=== PATIENT | female | born 1945 | race Caucasian/White ===

== ENCOUNTER 2023-07-10 12:38 | Outpatient (CLI) | payer MEDICARE ==
[2023-07-10] VITALS (21 sets, daily range): BP systolic 134–173; BP diastolic 71–137; PULSE 91–125
== END 2023-07-10 23:59 | disposition home or self-care (01) ==
LOC: CARD DIAG 12:38
PROVIDERS: ATTEND Internal Medicine Interventional Cardiology
DX: R55 Syncope and collapse (principal)
CPT/HCPCS: 93660

== ENCOUNTER 2023-09-11 13:09 | Inpatient (IN) | payer MEDICARE ==
[~2023-09-11] VITALS: Ht 157.5 cm; Wt 46.4 kg
[2023-09-11] MEDS ORDERED: LOSA100T58 PO (13:39)
[2023-09-11 14:19] LABS: BASOPHILS % (AUTO) 0.5 % (0-1); EOSINOPHILS % (AUTO) 0.1 % (0-6); LYMPHOCYTES # (AUTO) 0.4 X10'3 (1.1-4.8); LYMPHOCYTES % (AUTO) 5.1 % (21-51); MEAN CORPUSCULAR HGB CONC 29.6 g/dL (33.0-36.5); MEAN CORPUSCULAR VOLUME 77.8 FL (78-98); MEAN PLATELET VOLUME 6.3 FL (7.4-10.4); MONOCYTES # (AUTO) 0.7 X10'3 (0-0.9); MONOCYTES % (AUTO) 8.4 % (2-12); NEUTROPHILS # (AUTO) 7.5 X10'3 (1.8-7.7); NEUTROPHILS % (AUTO) 85.9 % (42-75); PLATELET COUNT 454 X10'3 (140-440); RED BLOOD COUNT 2.31 X10'6 (4.20-5.60); RED CELL DISTRIBUTION WIDTH 19.8 % (11.5-14.5); WHITE BLOOD COUNT 8.7 X10'3 (4.5-11.0)
[2023-09-11 14:28] LABS: HEMOGLOBIN 5.3 g/dl (12.0-16.0)
[2023-09-11 14:29] LABS: HEMATOCRIT 17.9 % (35.0-45.0)
[2023-09-11 14:39] LABS: ALANINE AMINOTRANSFERASE 51 U/L (12-78); ALBUMIN 3.5 G/DL (3.4-5.0); ALKALINE PHOSPHATASE 89 IU/L (46-116); ANION GAP 11 (8-16); ASPARTATE AMINO TRANSFERASE 38 U/L (10-37); BILIRUBIN,TOTAL 0.8 MG/DL (0.1-1.0); BLOOD UREA NITROGEN 15 MG/DL (7-18); BUN/CREATININE RATIO 13.9 (10.0-20.0); CALCIUM 9.5 MG/DL (8.5-10.1); CHLORIDE 95 MMOL/L (99-107); CREATININE 1.08 MG/DL (0.40-0.90); GLUCOSE 120 MG/DL (70-104); POTASSIUM 3.8 MMOL/L (3.5-5.1); SODIUM 130 MMOL/L (135-145); TOTAL CARBON DIOXIDE 24.5 MMOL/L (24-32); eCRCL 31 ML/MIN; eGFR 49 ML/MIN
[2023-09-11 14:53] LABS: ANISOCYTOSIS 2+; HYPOCHROMASIA 2+; MICROCYTOSIS 1+; PLATELET ESTIMATE INCREASED
[2023-09-11 14:54] LABS: ELLIPTOCYTES FEW
[2023-09-11 14:55] LABS: POLYCHROMASIA FEW
[2023-09-11] MEDS ORDERED: iohexol 300mg/ml 100ml inj. ONE (15:13)
[2023-09-11 15:29] LABS: BILIRUBIN,URINE NEGATIVE (Neg); CLARITY,URINE SLIGHTLY CLOUDY (Clear); COLOR,URINE YELLOW (Yellow); GLUCOSE, URINE NEGATIVE (Neg); KETONES,URINE TRACE mg/dl (Neg); LEUKOCYTE ESTERASE ,URINE TRACE (Neg); NITRITES, URINE NEGATIVE (Neg); OCCULT BLOOD,URINE NEGATIVE (Neg); PH,URINE 7.5 (4.8-8.0); PROTEIN,URINE 30 mg/dl (Neg)
[2023-09-11 15:30] LABS: UA COLLECTION TYPE CLN CATCH MIDSTREAM
[2023-09-11 15:35] LABS: PROTHROMBIN TIME 10.5 SECONDS (9.0-12.0)
[2023-09-11 15:41] LABS: RBC,URINE 0-2 /HPF (0-2)
[2023-09-11 15:42] LABS: BACTERIA,URINE FEW /HPF (Neg); SQUAMOUS EPITHELIAL CELL,UR MANY /LPF (FEW)
[2023-09-11] MEDS ORDERED: magnesium sulf-water 4G/100mL 100 ML IV PRN (15:55)
[2023-09-11] MEDS ORDERED: ondansetron/PF 4mg/2ml inj IV PRN (15:55)
[2023-09-11] MEDS ORDERED: magnesium sulf-water 2g/50mL 50 ML IV PRN (15:55)
[2023-09-11] MEDS ORDERED: magnesium hydroxide 30ml (MOM) UD suspension PO PRN (15:55)
[2023-09-11] MEDS ORDERED: potassium Cl 20 mEq SR tablet PO PRN (15:55)
[2023-09-11] MEDS ORDERED: acetaminophen 325mg tablet PO PRN (15:55)
[2023-09-11 15:57] LABS: TRANSITIONAL EPI CELLS,URINE FEW /HPF
[2023-09-11] MEDS ORDERED: pantoprazole 40mg IV 80 MG in normal saline 100ml IV soln 100 ML IV ONE (16:05)
[2023-09-11 16:37] LABS: ABSOLUTE RETICS # 123000 /CUMM (23000-93000); RETICULOCYTE % (AUTO) 5.3 % (0.5-1.5)
[2023-09-11 16:39] LABS: % IRON SATURATION 2 % (11-46); IRON 8 UG/DL (49-151); TOTAL IRON BINDING CAPACITY 416 UG/DL (259-388)
[2023-09-11 16:40] VITALS: BP 118/45; PULSE 91; RESP 18; TEMP 98.6
[2023-09-11 16:47] LABS: FERRITIN 17 NG/ML (8-252)
[2023-09-11 16:55] VITALS: BP 137/58; PULSE 83; RESP 16; TEMP 98.7
[2023-09-11] MEDS: pantoprazole 40 MG vial IV ONE (16:57)
[2023-09-11 17:28] VITALS: BP 137/58; PULSE 76; RESP 20; TEMP 98.7; O2SAT 100
[2023-09-11 18:00] VITALS: BP 144/67; PULSE 84; RESP 15; TEMP 98; O2SAT 99
[2023-09-11 18:30] VITALS: BP 140/51; PULSE 71; RESP 12; TEMP 97.2
[2023-09-11 20:00] VITALS: RESP 15; O2SAT 99
[2023-09-11] MEDS: K and/or MAG REPLACEMENT MC SCH (20:00)
[2023-09-11] MEDS: docusate sod 100mg capsule PO SCH (20:00)
[2023-09-11] MEDS: iron sucrose complex injection 300 MG in normal saline 250ml IV soln 250 ML IV SCH (21:55)
[2023-09-11] MEDS: pantoprazole 40MG/NS 100ML BAG 100 ML IV SCH (22:16)
[2023-09-12] VITALS (24 sets, daily range): BP systolic 75–164; BP diastolic 45–83; PULSE 68–101; RESP 9–18; TEMP 97.6–98.7; O2SAT 96–100
[2023-09-12] MEDS ORDERED: IBUP-2417 PO (00:56)
[2023-09-12 07:45] LABS: BASOPHILS % (AUTO) 0.4 % (0-1); EOSINOPHILS % (AUTO) 0.2 % (0-6); LYMPHOCYTES # (AUTO) 0.6 X10'3 (1.1-4.8); LYMPHOCYTES % (AUTO) 8.8 % (21-51); MEAN CORPUSCULAR HEMOGLOBIN 24.6 PG (27.0-31.0); MEAN CORPUSCULAR HGB CONC 30.7 g/dL (33.0-36.5); MEAN PLATELET VOLUME 6.5 FL (7.4-10.4); MONOCYTES # (AUTO) 0.6 X10'3 (0-0.9); MONOCYTES % (AUTO) 9.2 % (2-12); NEUTROPHILS # (AUTO) 5.4 X10'3 (1.8-7.7); NEUTROPHILS % (AUTO) 81.4 % (42-75); PLATELET COUNT 377 X10'3 (140-440); RED BLOOD COUNT 2.28 X10'6 (4.20-5.60); RED CELL DISTRIBUTION WIDTH 19.4 % (11.5-14.5); WHITE BLOOD COUNT 6.7 X10'3 (4.5-11.0)
[2023-09-12 08:00] LABS: HEMATOCRIT 18.2 % (35.0-45.0); HEMOGLOBIN 5.6 g/dl (12.0-16.0)
[2023-09-12 08:10] LABS: ALBUMIN 2.6 G/DL (3.4-5.0); ALBUMIN/GLOBULIN RATIO 0.9 (1.1-1.5); ANION GAP 7 (8-16); ASPARTATE AMINO TRANSFERASE 22 U/L (10-37); BILIRUBIN,TOTAL 0.6 MG/DL (0.1-1.0); BLOOD UREA NITROGEN 13 MG/DL (7-18); BUN/CREATININE RATIO 17.6 (10.0-20.0); CALCIUM 8.8 MG/DL (8.5-10.1); CHLORIDE 101 MMOL/L (99-107); CREATININE 0.74 MG/DL (0.40-0.90); GLUCOSE 93 MG/DL (70-104); MAGNESIUM 1.9 MG/DL (1.5-2.4); SODIUM 133 MMOL/L (135-145); TOTAL CARBON DIOXIDE 25.5 MMOL/L (24-32); TOTAL PROTEIN 5.6 G/DL (6.4-8.2); eCRCL 45 ML/MIN; eGFR 76 ML/MIN
[2023-09-12 08:11] LABS: ALANINE AMINOTRANSFERASE 34 U/L (12-78); ALKALINE PHOSPHATASE 68 IU/L (46-116)
[2023-09-12 08:31] LABS: ANISOCYTOSIS 2+; HYPOCHROMASIA 1+; MICROCYTOSIS 1+; PLATELET ESTIMATE NORMAL; POLYCHROMASIA 2+; TARGET CELLS FEW
[2023-09-12] MEDS: potassium Cl 20 mEq SR tablet PO PRN (09:29)
[2023-09-12] MEDS ORDERED: POTASSIUM BICARB 20meq eff tab 20 MEQ TABLET.EFF PO PRN (11:15)
[2023-09-12] MEDS ORDERED: fentaNYL/PF 50MCG/1 ML 2ML syringe ONE (12:58)
[2023-09-12] MEDS ORDERED: LIDOcaine 2% Viscous 15ml cup ONE (12:58)
[2023-09-12] MEDS ORDERED: MIDAZolam 1 MG/ML 5ML VIAL ONE (12:58)
[2023-09-12 17:16] LABS: HEMATOCRIT 25.4 % (35.0-45.0); HEMOGLOBIN 8.2 g/dl (12.0-16.0); MEAN CORPUSCULAR HEMOGLOBIN 25.7 PG (27.0-31.0); MEAN CORPUSCULAR HGB CONC 32.1 g/dL (33.0-36.5); MEAN CORPUSCULAR VOLUME 80.1 FL (78-98); MEAN PLATELET VOLUME 6.3 FL (7.4-10.4); PLATELET COUNT 395 X10'3 (140-440); RED BLOOD COUNT 3.18 X10'6 (4.20-5.60); RED CELL DISTRIBUTION WIDTH 18.5 % (11.5-14.5); WHITE BLOOD COUNT 7.2 X10'3 (4.5-11.0)
[2023-09-12] MEDS: normal saline 1000ml 1,000 ML IV SCH (18:03)
[2023-09-12] MEDS ORDERED: METO-395 PO (18:10)
[2023-09-12 23:07] LABS: HEMATOCRIT 23.3 % (35.0-45.0); HEMOGLOBIN 7.4 g/dl (12.0-16.0); MEAN CORPUSCULAR HEMOGLOBIN 25.8 PG (27.0-31.0); MEAN CORPUSCULAR HGB CONC 31.9 g/dL (33.0-36.5); MEAN CORPUSCULAR VOLUME 80.9 FL (78-98); MEAN PLATELET VOLUME 6.5 FL (7.4-10.4); PLATELET COUNT 358 X10'3 (140-440); RED BLOOD COUNT 2.88 X10'6 (4.20-5.60); RED CELL DISTRIBUTION WIDTH 17.8 % (11.5-14.5); WHITE BLOOD COUNT 7.1 X10'3 (4.5-11.0)
[2023-09-13] VITALS (22 sets, daily range): BP systolic 119–158; BP diastolic 50–70; PULSE 60–85; RESP 9–20; TEMP 98.2; O2SAT 94–100
[2023-09-13] MEDS: potassium Cl 40MEQ/1/2NS 520ml 520 ML IV PRN (00:04)
[2023-09-13 05:39] LABS: HEMATOCRIT 22.9 % (35.0-45.0); HEMOGLOBIN 7.1 g/dl (12.0-16.0); MEAN CORPUSCULAR HEMOGLOBIN 25.1 PG (27.0-31.0); MEAN CORPUSCULAR HGB CONC 31.1 g/dL (33.0-36.5); MEAN CORPUSCULAR VOLUME 80.6 FL (78-98); MEAN PLATELET VOLUME 6.4 FL (7.4-10.4); PLATELET COUNT 375 X10'3 (140-440); RED BLOOD COUNT 2.84 X10'6 (4.20-5.60); RED CELL DISTRIBUTION WIDTH 18.2 % (11.5-14.5); WHITE BLOOD COUNT 6.1 X10'3 (4.5-11.0)
[2023-09-13 05:55] LABS: ALANINE AMINOTRANSFERASE 33 U/L (12-78); ALBUMIN 2.4 G/DL (3.4-5.0); ALBUMIN/GLOBULIN RATIO 0.8 (1.1-1.5); ALKALINE PHOSPHATASE 60 IU/L (46-116); ANION GAP 7 (8-16); ASPARTATE AMINO TRANSFERASE 24 U/L (10-37); BILIRUBIN,TOTAL 0.5 MG/DL (0.1-1.0); BLOOD UREA NITROGEN 10 MG/DL (7-18); CALCIUM 8.5 MG/DL (8.5-10.1); CHLORIDE 106 MMOL/L (99-107); GLUCOSE 87 MG/DL (70-104); MAGNESIUM 1.8 MG/DL (1.5-2.4); POTASSIUM 4.3 MMOL/L (3.5-5.1); SODIUM 136 MMOL/L (135-145); TOTAL CARBON DIOXIDE 23.1 MMOL/L (24-32); TOTAL PROTEIN 5.3 G/DL (6.4-8.2); eCRCL 67 ML/MIN; eGFR > 90 ML/MIN
[2023-09-13 08:29] LABS: HEMATOCRIT 24.7 % (35.0-45.0); HEMOGLOBIN 7.7 g/dl (12.0-16.0); MEAN CORPUSCULAR HEMOGLOBIN 25.4 PG (27.0-31.0); MEAN CORPUSCULAR HGB CONC 31.2 g/dL (33.0-36.5); MEAN CORPUSCULAR VOLUME 81.7 FL (78-98); MEAN PLATELET VOLUME 6.3 FL (7.4-10.4); PLATELET COUNT 414 X10'3 (140-440); RED BLOOD COUNT 3.03 X10'6 (4.20-5.60); RED CELL DISTRIBUTION WIDTH 18.2 % (11.5-14.5); WHITE BLOOD COUNT 6.9 X10'3 (4.5-11.0)
[2023-09-13] MEDS: pantoprazole 40MG/NS 100ML BAG 100 ML IV SCH (12:24)
[2023-09-13 15:12] LABS: HEMOGLOBIN 7.2 g/dl (12.0-16.0); MEAN CORPUSCULAR HEMOGLOBIN 25.7 PG (27.0-31.0); MEAN CORPUSCULAR HGB CONC 31.5 g/dL (33.0-36.5); MEAN CORPUSCULAR VOLUME 81.5 FL (78-98); MEAN PLATELET VOLUME 6.4 FL (7.4-10.4); PLATELET COUNT 374 X10'3 (140-440); RED BLOOD COUNT 2.82 X10'6 (4.20-5.60); RED CELL DISTRIBUTION WIDTH 18.3 % (11.5-14.5); WHITE BLOOD COUNT 6.6 X10'3 (4.5-11.0)
[2023-09-13] MEDS: pneumococcal 23-VAL P-sac vacc 25 mcg/0.5ml vial IMVAC ONE (18:56)
[2023-09-13 19:47] LABS: HEMATOCRIT 24.1 % (35.0-45.0); HEMOGLOBIN 7.6 g/dl (12.0-16.0); MEAN CORPUSCULAR HEMOGLOBIN 25.8 PG (27.0-31.0); MEAN CORPUSCULAR HGB CONC 31.6 g/dL (33.0-36.5); MEAN CORPUSCULAR VOLUME 81.6 FL (78-98); PLATELET COUNT 393 X10'3 (140-440); RED BLOOD COUNT 2.96 X10'6 (4.20-5.60); RED CELL DISTRIBUTION WIDTH 18.5 % (11.5-14.5); WHITE BLOOD COUNT 7.4 X10'3 (4.5-11.0)
[2023-09-14] VITALS (19 sets, daily range): BP systolic 103–180; BP diastolic 47–89; PULSE 63–99; RESP 12–16; TEMP 97.4–98.4; O2SAT 98–100
[2023-09-14 05:56] LABS: BASOPHILS % (AUTO) 0.7 % (0-1); EOSINOPHILS # (AUTO) 0.1 X10'3 (0-0.9); EOSINOPHILS % (AUTO) 1.2 % (0-6); LYMPHOCYTES # (AUTO) 0.8 X10'3 (1.1-4.8); LYMPHOCYTES % (AUTO) 13.5 % (21-51); MEAN CORPUSCULAR HEMOGLOBIN 25.5 PG (27.0-31.0); MEAN CORPUSCULAR HGB CONC 31.6 g/dL (33.0-36.5); MEAN CORPUSCULAR VOLUME 80.7 FL (78-98); MEAN PLATELET VOLUME 6.2 FL (7.4-10.4); MONOCYTES # (AUTO) 0.7 X10'3 (0-0.9); MONOCYTES % (AUTO) 11.2 % (2-12); NEUTROPHILS # (AUTO) 4.3 X10'3 (1.8-7.7); NEUTROPHILS % (AUTO) 73.4 % (42-75); PLATELET COUNT 381 X10'3 (140-440); RED BLOOD COUNT 2.65 X10'6 (4.20-5.60); RED CELL DISTRIBUTION WIDTH 18.5 % (11.5-14.5); WHITE BLOOD COUNT 5.8 X10'3 (4.5-11.0)
[2023-09-14 06:04] LABS: HEMATOCRIT 21.4 % (35.0-45.0); HEMOGLOBIN 6.8 g/dl (12.0-16.0)
[2023-09-14] MEDS ORDERED: dexamethasone inj 10 MG in normal saline 100ml IV soln 100 ML IV ONE (06:15)
[2023-09-14 06:18] LABS: ALANINE AMINOTRANSFERASE 31 U/L (12-78); ALBUMIN 2.4 G/DL (3.4-5.0); ALBUMIN/GLOBULIN RATIO 0.9 (1.1-1.5); ALKALINE PHOSPHATASE 59 IU/L (46-116); ANION GAP 5 (8-16); ASPARTATE AMINO TRANSFERASE 26 U/L (10-37); BILIRUBIN,TOTAL 0.4 MG/DL (0.1-1.0); BLOOD UREA NITROGEN 5 MG/DL (7-18); BUN/CREATININE RATIO 9.1 (10.0-20.0); CALCIUM 8.7 MG/DL (8.5-10.1); CHLORIDE 107 MMOL/L (99-107); CREATININE 0.55 MG/DL (0.40-0.90); GLUCOSE 92 MG/DL (70-104); MAGNESIUM 1.6 MG/DL (1.5-2.4); POTASSIUM 3.2 MMOL/L (3.5-5.1); SODIUM 136 MMOL/L (135-145); TOTAL CARBON DIOXIDE 23.9 MMOL/L (24-32); TOTAL PROTEIN 5.2 G/DL (6.4-8.2); eCRCL 61 ML/MIN; eGFR > 90 ML/MIN
[2023-09-14 07:11] LABS: MEAN CORPUSCULAR HEMOGLOBIN 25.6 PG (27.0-31.0); MEAN CORPUSCULAR HGB CONC 31.2 g/dL (33.0-36.5); MEAN CORPUSCULAR VOLUME 82.1 FL (78-98); MEAN PLATELET VOLUME 5.8 FL (7.4-10.4); PLATELET COUNT 368 X10'3 (140-440); RED BLOOD COUNT 2.67 X10'6 (4.20-5.60); RED CELL DISTRIBUTION WIDTH 18.2 % (11.5-14.5); WHITE BLOOD COUNT 5.7 X10'3 (4.5-11.0)
[2023-09-14 07:14] LABS: HEMATOCRIT 21.9 % (35.0-45.0); HEMOGLOBIN 6.8 g/dl (12.0-16.0)
[2023-09-14] MEDS: POTASSIUM BICARB 20meq eff tab 20 MEQ TABLET.EFF PO PRN (12:41)
[2023-09-14 16:48] LABS: HEMOGLOBIN 8.6 g/dl (12.0-16.0); MEAN CORPUSCULAR HEMOGLOBIN 26.5 PG (27.0-31.0); MEAN CORPUSCULAR HGB CONC 31.7 g/dL (33.0-36.5); MEAN CORPUSCULAR VOLUME 83.4 FL (78-98); MEAN PLATELET VOLUME 6.3 FL (7.4-10.4); PLATELET COUNT 393 X10'3 (140-440); RED BLOOD COUNT 3.23 X10'6 (4.20-5.60); WHITE BLOOD COUNT 7.5 X10'3 (4.5-11.0)
[2023-09-14 17:58] LABS: HEMATOCRIT 31.9 % (35.0-45.0); HEMOGLOBIN 9.9 g/dl (12.0-16.0); MEAN CORPUSCULAR HGB CONC 31.2 g/dL (33.0-36.5); MEAN CORPUSCULAR VOLUME 86.5 FL (78-98); PLATELET COUNT 425 X10'3 (140-440); RED BLOOD COUNT 3.68 X10'6 (4.20-5.60); RED CELL DISTRIBUTION WIDTH 18.2 % (11.5-14.5); WHITE BLOOD COUNT 8.8 X10'3 (4.5-11.0)
[2023-09-14] MEDS ORDERED: morphine 2 MG/ML inj. syringe IV PRN (18:15)
[2023-09-14] MEDS ORDERED: morphine 4 MG/ML inj SYRINge IV PRN (18:15)
[2023-09-14] MEDS ORDERED: ondansetron/PF 4mg/2ml inj IV PRN (18:15)
[2023-09-14] MEDS ORDERED: hydrALAZINE 20mg/ml inj. IV PRN (18:15)
[2023-09-14] MEDS ORDERED: proCHLORperazine 10 MG/2 ml inj IV PRN (18:15)
[2023-09-14] MEDS ORDERED: meperidine/PF 25mg/ml syringe IV PRN ×2 (18:15)
[2023-09-14] MEDS ORDERED: midazolam 1 mg/ML 2ml injection ONE (18:26)
[2023-09-14] MEDS ORDERED: fentaNYL/PF 50MCG/1 ML 2ML syringe ONE (18:26)
[2023-09-14] MEDS ORDERED: sevoflurane 250ml liquid IH ONE (19:03)
[2023-09-14] MEDS ORDERED: ceFOXitin 1000 MG inj ONE ×2 (19:35)
[2023-09-14] MEDS ORDERED: dexamethasone sod phosphate 4mg/ml inj. ONE (19:35)
[2023-09-14] MEDS ORDERED: rocuronium 10mg/ml inj IV ONE (19:35)
[2023-09-14] MEDS ORDERED: LIDOcaine 2% (20mg/ml) 5ml vial ONE (19:35)
[2023-09-14] MEDS ORDERED: propofol inj 20 ML IV ONE (19:35)
[2023-09-14] MEDS ORDERED: ondansetron/PF 4mg/2ml inj ONE (19:35)
[2023-09-14] MEDS: BUPIVACAINE liposomal/PF 13.3 MG/ML vial IM ONE (19:36)
[2023-09-14] MEDS: BUPIVAcaine/PF 2.5mg/ml (0.25%) 10ml vial ONE (19:36)
[2023-09-14] MEDS ORDERED: fentaNYL /PF 50mcg/ml 5ml ampule ONE (19:51)
[2023-09-14] MEDS ORDERED: glycopyrrolate 0.2mg/ml inj ONE (21:23)
[2023-09-14] MEDS ORDERED: neostigmine methylsulfate 1 MG/ML 10ml vial ONE (21:23)
[2023-09-14] MEDS: acetaminophen 1,000mg/100ml IV 100 ML IV ONE (21:41)
[2023-09-14] MEDS: meperidine/PF 25mg/ml syringe IV PRN (21:42)
[2023-09-14] MEDS ORDERED: naloxone 0.4 mg/ml inj IV PRN (21:45)
[2023-09-14] MEDS: labetalol 20mg/4ml (5mg/ml) syringe IV PRN (21:53)
[2023-09-14] MEDS: ringers solution, lacted 1,000 ML IV SCH (23:08)
[2023-09-14] MEDS: potassium CL 20mEq in D5-1/2NS 1,000 ML IV SCH (23:20)
[2023-09-15] VITALS (9 sets, daily range): BP systolic 88–126; BP diastolic 40–57; PULSE 61–93; RESP 14–16; TEMP 97.6–99.2; O2SAT 98–100
[2023-09-15] MEDS: HYDROmorphone inj. 0.5 MG/0.5 ML DISP.SYRIN IV PRN (01:05)
[2023-09-15] MEDS: ceFOXitin 2GM-NS 100mL ADDvant 100 ML IV SCH (02:19)
[2023-09-15 06:19] LABS: BASOPHILS % (AUTO) 0 % (0-1); EOSINOPHILS % (AUTO) 0 % (0-6); HEMATOCRIT 22.9 % (35.0-45.0); HEMOGLOBIN 7.2 g/dl (12.0-16.0); LYMPHOCYTES # (AUTO) 0.3 X10'3 (1.1-4.8); MEAN CORPUSCULAR HEMOGLOBIN 26.8 PG (27.0-31.0); MEAN CORPUSCULAR HGB CONC 31.6 g/dL (33.0-36.5); MEAN CORPUSCULAR VOLUME 84.8 FL (78-98); MEAN PLATELET VOLUME 6.1 FL (7.4-10.4); MONOCYTES % (AUTO) 6.5 % (2-12); NEUTROPHILS # (AUTO) 14.4 X10'3 (1.8-7.7); NEUTROPHILS % (AUTO) 91.5 % (42-75); PLATELET COUNT 365 X10'3 (140-440); RED BLOOD COUNT 2.69 X10'6 (4.20-5.60); WHITE BLOOD COUNT 15.7 X10'3 (4.5-11.0)
[2023-09-15 06:36] LABS: ALANINE AMINOTRANSFERASE 32 U/L (12-78); ALBUMIN 2.2 G/DL (3.4-5.0); ALBUMIN/GLOBULIN RATIO 0.8 (1.1-1.5); ALKALINE PHOSPHATASE 54 IU/L (46-116); ANION GAP 6 (8-16); ASPARTATE AMINO TRANSFERASE 30 U/L (10-37); BILIRUBIN,TOTAL 0.6 MG/DL (0.1-1.0); BLOOD UREA NITROGEN 7 MG/DL (7-18); BUN/CREATININE RATIO 9.2 (10.0-20.0); CALCIUM 8.5 MG/DL (8.5-10.1); CHLORIDE 103 MMOL/L (99-107); CREATININE 0.76 MG/DL (0.40-0.90); GLUCOSE 148 MG/DL (70-104); MAGNESIUM 1.4 MG/DL (1.5-2.4); POTASSIUM 3.8 MMOL/L (3.5-5.1); SODIUM 134 MMOL/L (135-145); TOTAL CARBON DIOXIDE 25.5 MMOL/L (24-32); eCRCL 44 ML/MIN; eGFR 73 ML/MIN
[2023-09-15] MEDS ORDERED: benzocaine/menthol oral lozeng 1 EACH BOX MM PRN (13:15)
[2023-09-15] MEDS: potassium CL 20mEq in D5-1/2NS 1,000 ML IV SCH (13:21)
[2023-09-15] MEDS: magnesium sulf-water 2g/50mL 50 ML IV ONE (13:41)
[2023-09-15 16:57] LABS: HEMATOCRIT 23.7 % (35.0-45.0); HEMOGLOBIN 7.5 g/dl (12.0-16.0); MEAN CORPUSCULAR HEMOGLOBIN 27.1 PG (27.0-31.0); MEAN CORPUSCULAR HGB CONC 31.7 g/dL (33.0-36.5); MEAN CORPUSCULAR VOLUME 85.6 FL (78-98); MEAN PLATELET VOLUME 6.2 FL (7.4-10.4); PLATELET COUNT 401 X10'3 (140-440); RED BLOOD COUNT 2.77 X10'6 (4.20-5.60); RED CELL DISTRIBUTION WIDTH 17.9 % (11.5-14.5); WHITE BLOOD COUNT 11.4 X10'3 (4.5-11.0)
[2023-09-15] MEDS: Chloraseptic (Phenol) Spray 177ml MM PRN (18:47)
[2023-09-16] VITALS (10 sets, daily range): BP systolic 126–167; BP diastolic 52–75; PULSE 85–96; RESP 14–20; TEMP 97–98.9; O2SAT 97–99
[2023-09-16 06:30] LABS: BASOPHILS % (AUTO) 0.3 % (0-1); EOSINOPHILS % (AUTO) 0.2 % (0-6); LYMPHOCYTES # (AUTO) 0.5 X10'3 (1.1-4.8); LYMPHOCYTES % (AUTO) 5.4 % (21-51); MEAN CORPUSCULAR HEMOGLOBIN 27.8 PG (27.0-31.0); MEAN CORPUSCULAR HGB CONC 31.8 g/dL (33.0-36.5); MEAN CORPUSCULAR VOLUME 87.5 FL (78-98); MEAN PLATELET VOLUME 6.3 FL (7.4-10.4); MONOCYTES # (AUTO) 0.9 X10'3 (0-0.9); MONOCYTES % (AUTO) 9.9 % (2-12); NEUTROPHILS # (AUTO) 7.5 X10'3 (1.8-7.7); NEUTROPHILS % (AUTO) 84.2 % (42-75); PLATELET COUNT 331 X10'3 (140-440); RED BLOOD COUNT 2.48 X10'6 (4.20-5.60); RED CELL DISTRIBUTION WIDTH 18.4 % (11.5-14.5); WHITE BLOOD COUNT 8.9 X10'3 (4.5-11.0)
[2023-09-16 06:41] LABS: ALANINE AMINOTRANSFERASE 35 U/L (12-78); ALBUMIN 1.9 G/DL (3.4-5.0); ALBUMIN/GLOBULIN RATIO 0.7 (1.1-1.5); ALKALINE PHOSPHATASE 58 IU/L (46-116); ANION GAP 5 (8-16); ASPARTATE AMINO TRANSFERASE 31 U/L (10-37); BILIRUBIN,TOTAL 0.4 MG/DL (0.1-1.0); BLOOD UREA NITROGEN 7 MG/DL (7-18); CALCIUM 8.2 MG/DL (8.5-10.1); CHLORIDE 104 MMOL/L (99-107); CREATININE 0.54 MG/DL (0.40-0.90); GLUCOSE 124 MG/DL (70-104); MAGNESIUM 1.9 MG/DL (1.5-2.4); POTASSIUM 3.7 MMOL/L (3.5-5.1); SODIUM 135 MMOL/L (135-145); TOTAL CARBON DIOXIDE 25.7 MMOL/L (24-32); TOTAL PROTEIN 4.7 G/DL (6.4-8.2); eCRCL 62 ML/MIN; eGFR > 90 ML/MIN
[2023-09-16 06:47] LABS: HEMATOCRIT 21.7 % (35.0-45.0); HEMOGLOBIN 6.9 g/dl (12.0-16.0)
[2023-09-16 07:37] LABS: HBSAG SCREEN Negative (Negative); HEP B CORE AB, IGM Negative (Negative); HEP B CORE AB, TOT Negative (Negative)
[2023-09-16] MEDS: ceFOXitin 2GM-NS 100mL ADDvant 100 ML IV SCH (11:06)
[2023-09-16 15:30] LABS: HEMATOCRIT 26.2 % (35.0-45.0); HEMOGLOBIN 8.6 g/dl (12.0-16.0); MEAN CORPUSCULAR HEMOGLOBIN 28.6 PG (27.0-31.0); MEAN CORPUSCULAR HGB CONC 32.7 g/dL (33.0-36.5); MEAN CORPUSCULAR VOLUME 87.5 FL (78-98); MEAN PLATELET VOLUME 6.1 FL (7.4-10.4); PLATELET COUNT 292 X10'3 (140-440); RED BLOOD COUNT 2.99 X10'6 (4.20-5.60); RED CELL DISTRIBUTION WIDTH 17.2 % (11.5-14.5); WHITE BLOOD COUNT 9.5 X10'3 (4.5-11.0)
[2023-09-17 06:00] VITALS: BP 132/65; PULSE 82; RESP 14; TEMP 98.6; O2SAT 97
[2023-09-17 08:00] VITALS: RESP 16; O2SAT 98
[2023-09-17 10:00] VITALS: BP 145/67; PULSE 93; RESP 18; TEMP 99.1; O2SAT 97
[2023-09-17 12:40] LABS: BASOPHILS % (AUTO) 0.3 % (0-1); EOSINOPHILS % (AUTO) 0.5 % (0-6); HEMATOCRIT 25.4 % (35.0-45.0); HEMOGLOBIN 8.4 g/dl (12.0-16.0); LYMPHOCYTES # (AUTO) 0.3 X10'3 (1.1-4.8); LYMPHOCYTES % (AUTO) 3.7 % (21-51); MEAN CORPUSCULAR HEMOGLOBIN 28.6 PG (27.0-31.0); MEAN CORPUSCULAR HGB CONC 32.8 g/dL (33.0-36.5); MEAN CORPUSCULAR VOLUME 87.1 FL (78-98); MEAN PLATELET VOLUME 6.1 FL (7.4-10.4); MONOCYTES # (AUTO) 0.6 X10'3 (0-0.9); MONOCYTES % (AUTO) 6.9 % (2-12); NEUTROPHILS # (AUTO) 8.3 X10'3 (1.8-7.7); NEUTROPHILS % (AUTO) 88.6 % (42-75); PLATELET COUNT 280 X10'3 (140-440); RED BLOOD COUNT 2.92 X10'6 (4.20-5.60); RED CELL DISTRIBUTION WIDTH 18.5 % (11.5-14.5); WHITE BLOOD COUNT 9.3 X10'3 (4.5-11.0)
[2023-09-17 12:52] LABS: ANION GAP 3 (8-16); BLOOD UREA NITROGEN 2 MG/DL (7-18); BUN/CREATININE RATIO 3.6 (10.0-20.0); CALCIUM 8.4 MG/DL (8.5-10.1); CHLORIDE 101 MMOL/L (99-107); CREATININE 0.56 MG/DL (0.40-0.90); GLUCOSE 127 MG/DL (70-104); SODIUM 131 MMOL/L (135-145); TOTAL CARBON DIOXIDE 27.4 MMOL/L (24-32); eCRCL 60 ML/MIN; eGFR > 90 ML/MIN
[2023-09-17 13:21] LABS: ANISOCYTOSIS 2+; PLATELET ESTIMATE NORMAL
[2023-09-17 13:22] LABS: HYPOCHROMASIA 1+; POIKILOCYTOSIS FEW; POLYCHROMASIA FEW; STOMATOCYTES FEW
[2023-09-17 18:00] VITALS: BP 149/86; PULSE 99; RESP 16; TEMP 97.5; O2SAT 96
[2023-09-17] MEDS ORDERED: magnesium sulf-water 4G/100mL 100 ML IV PRN (18:45)
[2023-09-17] MEDS ORDERED: magnesium sulf-water 2g/50mL 50 ML IV PRN (18:45)
[2023-09-17] MEDS: potassium Cl 40MEQ/1/2NS 520ml 520 ML IV PRN (19:14)
[2023-09-17 20:00] VITALS: RESP 12; O2SAT 96
[2023-09-17] MEDS: K and/or MAG REPLACEMENT MC SCH (20:15)
[2023-09-17] MEDS: diatr meglu/diatrizoate 30ml oral sol.-(3 dose) bottle PO SCH (21:52)
[2023-09-17 22:00] VITALS: BP 154/76; PULSE 94; RESP 20; TEMP 97.5; O2SAT 96
[2023-09-18] VITALS (7 sets, daily range): BP systolic 112–160; BP diastolic 52–87; PULSE 95–138; RESP 16–24; TEMP 97.5–99; O2SAT 96–98
[2023-09-18 04:31] LABS: BASOPHILS % (AUTO) 0.3 % (0-1); EOSINOPHILS # (AUTO) 0.1 X10'3 (0-0.9); EOSINOPHILS % (AUTO) 0.8 % (0-6); HEMATOCRIT 24.8 % (35.0-45.0); HEMOGLOBIN 8.2 g/dl (12.0-16.0); LYMPHOCYTES # (AUTO) 0.3 X10'3 (1.1-4.8); LYMPHOCYTES % (AUTO) 3.2 % (21-51); MEAN CORPUSCULAR HEMOGLOBIN 29.2 PG (27.0-31.0); MEAN CORPUSCULAR VOLUME 88.2 FL (78-98); MEAN PLATELET VOLUME 6.1 FL (7.4-10.4); MONOCYTES # (AUTO) 0.8 X10'3 (0-0.9); NEUTROPHILS # (AUTO) 8.4 X10'3 (1.8-7.7); NEUTROPHILS % (AUTO) 87.7 % (42-75); PLATELET COUNT 272 X10'3 (140-440); RED BLOOD COUNT 2.81 X10'6 (4.20-5.60); RED CELL DISTRIBUTION WIDTH 20.9 % (11.5-14.5); WHITE BLOOD COUNT 9.6 X10'3 (4.5-11.0)
[2023-09-18 04:39] LABS: ALBUMIN 1.9 G/DL (3.4-5.0); ANION GAP 4 (8-16); BLOOD UREA NITROGEN 5 MG/DL (7-18); BUN/CREATININE RATIO 10.9 (10.0-20.0); CALCIUM 8.4 MG/DL (8.5-10.1); CHLORIDE 102 MMOL/L (99-107); CREATININE 0.46 MG/DL (0.40-0.90); GLUCOSE 106 MG/DL (70-104); MAGNESIUM 1.6 MG/DL (1.5-2.4); POTASSIUM 3.9 MMOL/L (3.5-5.1); SODIUM 132 MMOL/L (135-145); TOTAL CARBON DIOXIDE 26.2 MMOL/L (24-32); eCRCL 73 ML/MIN; eGFR > 90 ML/MIN
[2023-09-18 19:00] LABS: HEMATOCRIT 27.3 % (35.0-45.0); HEMOGLOBIN 8.8 g/dl (12.0-16.0); MEAN CORPUSCULAR HEMOGLOBIN 28.7 PG (27.0-31.0); MEAN CORPUSCULAR HGB CONC 32.3 g/dL (33.0-36.5); MEAN CORPUSCULAR VOLUME 88.8 FL (78-98); MEAN PLATELET VOLUME 6.3 FL (7.4-10.4); PLATELET COUNT 311 X10'3 (140-440); RED BLOOD COUNT 3.07 X10'6 (4.20-5.60); RED CELL DISTRIBUTION WIDTH 19.5 % (11.5-14.5); WHITE BLOOD COUNT 10.2 X10'3 (4.5-11.0)
[2023-09-18] MEDS: heparin, porcine 5000 units/ml vial SQ SCH (20:34)
[2023-09-19] VITALS (8 sets, daily range): BP systolic 133–147; BP diastolic 63–86; PULSE 83–98; RESP 14–20; TEMP 97.8–98.4; O2SAT 96–100
[2023-09-19 05:46] LABS: BASOPHILS % (AUTO) 0.2 % (0-1); EOSINOPHILS # (AUTO) 0.1 X10'3 (0-0.9); EOSINOPHILS % (AUTO) 1.1 % (0-6); HEMATOCRIT 24.5 % (35.0-45.0); HEMOGLOBIN 8.2 g/dl (12.0-16.0); LYMPHOCYTES # (AUTO) 0.4 X10'3 (1.1-4.8); LYMPHOCYTES % (AUTO) 3.7 % (21-51); MEAN CORPUSCULAR HEMOGLOBIN 29.4 PG (27.0-31.0); MEAN CORPUSCULAR HGB CONC 33.3 g/dL (33.0-36.5); MEAN CORPUSCULAR VOLUME 88.1 FL (78-98); MEAN PLATELET VOLUME 6.5 FL (7.4-10.4); MONOCYTES # (AUTO) 0.9 X10'3 (0-0.9); MONOCYTES % (AUTO) 7.9 % (2-12); NEUTROPHILS # (AUTO) 9.5 X10'3 (1.8-7.7); NEUTROPHILS % (AUTO) 87.1 % (42-75); PLATELET COUNT 278 X10'3 (140-440); RED BLOOD COUNT 2.78 X10'6 (4.20-5.60); RED CELL DISTRIBUTION WIDTH 20.4 % (11.5-14.5)
[2023-09-19 05:50] LABS: ALBUMIN 1.6 G/DL (3.4-5.0); ANION GAP 4 (8-16); BLOOD UREA NITROGEN 3 MG/DL (7-18); BUN/CREATININE RATIO 5.5 (10.0-20.0); CALCIUM 8.4 MG/DL (8.5-10.1); CHLORIDE 102 MMOL/L (99-107); CREATININE 0.55 MG/DL (0.40-0.90); GLUCOSE 132 MG/DL (70-104); MAGNESIUM 1.6 MG/DL (1.5-2.4); POTASSIUM 3.4 MMOL/L (3.5-5.1); SODIUM 131 MMOL/L (135-145); TOTAL CARBON DIOXIDE 24.8 MMOL/L (24-32); eCRCL 61 ML/MIN; eGFR > 90 ML/MIN
[2023-09-19] MEDS: metoprolol succinate 25mg (24-HOUR) SR. Tablet PO SCH ×2 (08:39→21:29)
[2023-09-19] MEDS: NUT.TX.IMPAIRED DIGEST FXN (Ensure Clear) 237 ML PO SCH (13:00)
[2023-09-19] MEDS: magnesium hydroxide 30ml (MOM) UD suspension PO SCH (20:00)
[2023-09-19] MEDS: pantoprazole 40mg Tablet.DR PO SCH (21:29)
[2023-09-19] MEDS: POTASSIUM BICARB 20meq eff tab 20 MEQ TABLET.EFF PO PRN (22:10)
[2023-09-20] VITALS (8 sets, daily range): BP systolic 115–154; BP diastolic 63–71; PULSE 77–83; RESP 12–21; TEMP 97.7–98.1; O2SAT 98
[2023-09-20 06:04] LABS: BASOPHILS % (AUTO) 0.3 % (0-1); EOSINOPHILS # (AUTO) 0.2 X10'3 (0-0.9); EOSINOPHILS % (AUTO) 3.1 % (0-6); LYMPHOCYTES # (AUTO) 0.4 X10'3 (1.1-4.8); LYMPHOCYTES % (AUTO) 5.7 % (21-51); MEAN CORPUSCULAR HEMOGLOBIN 29.6 PG (27.0-31.0); MEAN CORPUSCULAR HGB CONC 33.2 g/dL (33.0-36.5); MEAN CORPUSCULAR VOLUME 89.1 FL (78-98); MEAN PLATELET VOLUME 6.4 FL (7.4-10.4); MONOCYTES # (AUTO) 0.6 X10'3 (0-0.9); MONOCYTES % (AUTO) 8.4 % (2-12); NEUTROPHILS # (AUTO) 6.1 X10'3 (1.8-7.7); NEUTROPHILS % (AUTO) 82.5 % (42-75); PLATELET COUNT 287 X10'3 (140-440); RED CELL DISTRIBUTION WIDTH 21.7 % (11.5-14.5); WHITE BLOOD COUNT 7.3 X10'3 (4.5-11.0)
[2023-09-20 06:09] LABS: ALBUMIN 1.6 G/DL (3.4-5.0); ANION GAP 2 (8-16); BLOOD UREA NITROGEN 3 MG/DL (7-18); BUN/CREATININE RATIO 6.8 (10.0-20.0); CALCIUM 8.6 MG/DL (8.5-10.1); CHLORIDE 103 MMOL/L (99-107); CREATININE 0.44 MG/DL (0.40-0.90); GLUCOSE 120 MG/DL (70-104); MAGNESIUM 1.8 MG/DL (1.5-2.4); POTASSIUM 3.5 MMOL/L (3.5-5.1); SODIUM 132 MMOL/L (135-145); TOTAL CARBON DIOXIDE 26.6 MMOL/L (24-32); eCRCL 76 ML/MIN; eGFR > 90 ML/MIN
[2023-09-20] MEDS: ferrous sulfate 325mg tablet PO SCH (07:57)
[2023-09-20] MEDS: cholecalciferol (vitamin D3) 400 unit (10mcg) tablet PO SCH (07:57)
[2023-09-20] MEDS: calcium carbonate 500mg tablet PO SCH (07:58)
[2023-09-20] MEDS: MULTIVIT-MIN/FERROUS GLUCONATE 9 MG/15 ML LIQUID PO SCH (07:58)
[2023-09-20] MEDS ORDERED: cefoxitin sod inj 2,000 MG in normal saline 100ml IV soln 100 ML IV SCH (20:00)
[2023-09-20] MEDS: ceFOXitin 2GM-NS 100mL ADDvant 100 ML IV SCH (20:14)
[2023-09-21] VITALS (10 sets, daily range): BP systolic 77–157; BP diastolic 31–76; PULSE 72–128; RESP 10–22; TEMP 98.2–98.7; O2SAT 95–99
[2023-09-21] MEDS: normal saline 1000ml 1,000 ML IV ONE (03:20)
[2023-09-21 04:38] LABS: BASOPHILS % (AUTO) 0.3 % (0-1); EOSINOPHILS # (AUTO) 0.1 X10'3 (0-0.9); EOSINOPHILS % (AUTO) 2.2 % (0-6); HEMOGLOBIN 8.7 g/dl (12.0-16.0); LYMPHOCYTES # (AUTO) 0.3 X10'3 (1.1-4.8); LYMPHOCYTES % (AUTO) 4.5 % (21-51); MEAN CORPUSCULAR HEMOGLOBIN 28.7 PG (27.0-31.0); MEAN CORPUSCULAR HGB CONC 32.1 g/dL (33.0-36.5); MEAN CORPUSCULAR VOLUME 89.6 FL (78-98); MEAN PLATELET VOLUME 6.2 FL (7.4-10.4); MONOCYTES # (AUTO) 0.6 X10'3 (0-0.9); MONOCYTES % (AUTO) 8.3 % (2-12); NEUTROPHILS # (AUTO) 5.7 X10'3 (1.8-7.7); NEUTROPHILS % (AUTO) 84.7 % (42-75); PLATELET COUNT 327 X10'3 (140-440); RED BLOOD COUNT 3.02 X10'6 (4.20-5.60); WHITE BLOOD COUNT 6.7 X10'3 (4.5-11.0)
[2023-09-21 04:46] LABS: ALBUMIN 1.8 G/DL (3.4-5.0); ANION GAP 5 (8-16); BLOOD UREA NITROGEN 4 MG/DL (7-18); BUN/CREATININE RATIO 7.3 (10.0-20.0); CALCIUM 8.6 MG/DL (8.5-10.1); CHLORIDE 103 MMOL/L (99-107); CREATININE 0.55 MG/DL (0.40-0.90); GLUCOSE 102 MG/DL (70-104); MAGNESIUM 1.9 MG/DL (1.5-2.4); POTASSIUM 3.3 MMOL/L (3.5-5.1); SODIUM 135 MMOL/L (135-145); eCRCL 61 ML/MIN; eGFR > 90 ML/MIN
[2023-09-21 05:04] LABS: ANISOCYTOSIS 3+; PLATELET ESTIMATE NORMAL
[2023-09-21 05:05] LABS: ELLIPTOCYTES FEW
[2023-09-21 12:42] LABS: D-DIMER 12.27 MG/L FEU (0-0.50)
[2023-09-21] MEDS ORDERED: heparin 25,000 UNIT/250ml bag 250 ML IV PRN (14:20)
[2023-09-21] MEDS ORDERED: heparin 10,000 units/1 ML INJ IV ONE (14:20)
[2023-09-21] MEDS ORDERED: heparin 10,000 units/1 ML INJ IV PRN (14:20)
[2023-09-21] MEDS: metoprolol tartrate 1mg/ml inj IV ONE ×2 (14:50→18:20)
[2023-09-21] MEDS: magnesium sulf-water 2g/50mL 50 ML IV ONE (14:50)
[2023-09-21] MEDS: metoprolol succinate 25mg (24-HOUR) SR. Tablet PO ONE (16:00)
[2023-09-21] MEDS: ringers solution, lacted 1,000 ML IV ONE (16:02)
[2023-09-21] MEDS ORDERED: iohexol 350MG/ML 100ml bottle IV ONE (16:07)
[2023-09-21] MEDS: lactose-reduced food (Ensure Enlive) - 237ml bottle PO SCH (18:18)
[2023-09-21 19:12] LABS: MAGNESIUM 2.2 MG/DL (1.5-2.4); POTASSIUM 3.7 MMOL/L (3.5-5.1)
[2023-09-21] MEDS: HYDROcodone/acetaminophen 5mg/325mg tablet PO PRN (20:52)
[2023-09-22 02:00] VITALS: BP 141/74; PULSE 83; RESP 16; TEMP 97.4; O2SAT 97
[2023-09-22 06:00] VITALS: BP 115/57; PULSE 73; RESP 10; TEMP 99; O2SAT 94
[2023-09-22 07:18] LABS: ALBUMIN 1.6 G/DL (3.4-5.0); ANION GAP 5 (8-16); BLOOD UREA NITROGEN 4 MG/DL (7-18); BUN/CREATININE RATIO 7.8 (10.0-20.0); CALCIUM 8.7 MG/DL (8.5-10.1); CHLORIDE 103 MMOL/L (99-107); CREATININE 0.51 MG/DL (0.40-0.90); GLUCOSE 115 MG/DL (70-104); POTASSIUM 4.1 MMOL/L (3.5-5.1); SODIUM 134 MMOL/L (135-145); TOTAL CARBON DIOXIDE 26.4 MMOL/L (24-32); eCRCL 65 ML/MIN; eGFR > 90 ML/MIN
[2023-09-22 08:00] VITALS: RESP 16; O2SAT 99
[2023-09-22] MEDS: metoprolol succinate 25mg (24-HOUR) SR. Tablet PO SCH (10:38)
[2023-09-22 11:50] LABS: BASOPHILS % 0 % (0-2); EOSINOPHILS # (AUTO) 0.2 X10'3 (0-0.9); EOSINOPHILS % (AUTO) 5 % (0-6); HEMATOCRIT 22.8 % (37.7-47.9); HEMOGLOBIN 7.4 G/DL (11.5-16.0); LYMPHOCYTES # (AUTO) 0.6 X10'3 (1.1-4.8); LYMPHOCYTES % 11 % (24-44); MEAN CORPUSCULAR HGB CONC 32.5 % (32-36); MEAN CORPUSCULAR VOLUME 89.3 FL (81-97); MONOCYTES # (AUTO) 0.5 X10'3 (0-0.9); MONOCYTES % 10 % (0-12); NEUTROPHILS # (AUTO) 3.7 X10'3 (1.8-7.7); PLATELET COUNT 335 X10'3 (130-400); RED BLOOD COUNT 2.55 X10'6 (3.60-4.90); RED CELL DISTRIBUTION WIDTH 20.5 % (11-16); SEGMENTED NEUTROPHILS % 74 % (36-66)
[2023-09-22 18:00] VITALS: BP 142/71; PULSE 79; RESP 15; TEMP 97.3; O2SAT 99
[2023-09-22 20:00] VITALS: RESP 15; O2SAT 99
[2023-09-22] MEDS: diatr meglu/diatrizoate 30ml oral sol.-(3 dose) bottle PO SCH (21:59)
[2023-09-23] MEDS: normal saline 1000ml 1,000 ML IV SCH (02:54)
[2023-09-23 06:00] VITALS: BP 141/60; PULSE 75; RESP 14; TEMP 97.7; O2SAT 100
[2023-09-23 08:00] VITALS: RESP 14; O2SAT 100
[2023-09-23] MEDS ORDERED: iohexol 300mg/ml 100ml inj. ONE (10:02)
[2023-09-23 11:00] VITALS: BP 139/48; PULSE 82; RESP 13; TEMP 97.8; O2SAT 98
[2023-09-23 14:55] LABS: BASOPHILS # (AUTO) 0.1 X10'3 (0-0.2); EOSINOPHILS # (AUTO) 0.2 X10'3 (0-0.9); EOSINOPHILS % (AUTO) 3.4 % (0-6); HEMATOCRIT 26.6 % (35.0-45.0); HEMOGLOBIN 8.7 g/dl (12.0-16.0); LYMPHOCYTES # (AUTO) 0.6 X10'3 (1.1-4.8); LYMPHOCYTES % (AUTO) 10.9 % (21-51); MEAN CORPUSCULAR HEMOGLOBIN 29.5 PG (27.0-31.0); MEAN CORPUSCULAR HGB CONC 32.6 g/dL (33.0-36.5); MEAN CORPUSCULAR VOLUME 90.3 FL (78-98); MEAN PLATELET VOLUME 6.5 FL (7.4-10.4); MONOCYTES # (AUTO) 0.5 X10'3 (0-0.9); MONOCYTES % (AUTO) 9.6 % (2-12); NEUTROPHILS # (AUTO) 3.9 X10'3 (1.8-7.7); NEUTROPHILS % (AUTO) 75.1 % (42-75); PLATELET COUNT 421 X10'3 (140-440); RED BLOOD COUNT 2.95 X10'6 (4.20-5.60); RED CELL DISTRIBUTION WIDTH 20.8 % (11.5-14.5); WHITE BLOOD COUNT 5.2 X10'3 (4.5-11.0)
[2023-09-23 15:00] VITALS: BP 161/73; PULSE 83; RESP 12; TEMP 98.4; O2SAT 95
[2023-09-23 15:17] LABS: ALANINE AMINOTRANSFERASE 19 U/L (12-78); ALBUMIN/GLOBULIN RATIO 0.5 (1.1-1.5); ALKALINE PHOSPHATASE 123 IU/L (46-116); ANION GAP 5 (8-16); ASPARTATE AMINO TRANSFERASE 18 U/L (10-37); BILIRUBIN,TOTAL 0.4 MG/DL (0.1-1.0); BLOOD UREA NITROGEN 3 MG/DL (7-18); CALCIUM 8.8 MG/DL (8.5-10.1); CHLORIDE 103 MMOL/L (99-107); CREATININE 0.99 MG/DL (0.40-0.90); GLUCOSE 91 MG/DL (70-104); POTASSIUM 3.4 MMOL/L (3.5-5.1); SODIUM 135 MMOL/L (135-145); TOTAL CARBON DIOXIDE 27.5 MMOL/L (24-32); TOTAL PROTEIN 5.8 G/DL (6.4-8.2); eCRCL 34 ML/MIN; eGFR 54 ML/MIN
[2023-09-23 15:36] LABS: ANISOCYTOSIS 3+; PLATELET ESTIMATE NORMAL
[2023-09-23 15:37] LABS: HYPOCHROMASIA 1+
[2023-09-23 15:38] LABS: BURR CELLS FEW
[2023-09-23] MEDS: mag hydrox/Alum hydrox/simeth 30ml oral suspension PO PRN (20:43)
[2023-09-23 22:00] VITALS: BP 141/69; PULSE 78; RESP 16; TEMP 96.8; O2SAT 97
[2023-09-24 02:00] VITALS: BP 133/58; PULSE 68; RESP 18; TEMP 97.1; O2SAT 98
[2023-09-24 06:00] VITALS: BP 140/54; PULSE 73; RESP 16; TEMP 97.7; O2SAT 98
[2023-09-24 06:20] LABS: BASOPHILS % (AUTO) 0.8 % (0-1); EOSINOPHILS # (AUTO) 0.2 X10'3 (0-0.9); EOSINOPHILS % (AUTO) 4.4 % (0-6); HEMOGLOBIN 7.5 g/dl (12.0-16.0); LYMPHOCYTES # (AUTO) 0.6 X10'3 (1.1-4.8); LYMPHOCYTES % (AUTO) 12.7 % (21-51); MEAN CORPUSCULAR HEMOGLOBIN 29.2 PG (27.0-31.0); MEAN CORPUSCULAR HGB CONC 32.4 g/dL (33.0-36.5); MEAN CORPUSCULAR VOLUME 90.1 FL (78-98); MEAN PLATELET VOLUME 6.4 FL (7.4-10.4); MONOCYTES # (AUTO) 0.5 X10'3 (0-0.9); MONOCYTES % (AUTO) 10.6 % (2-12); NEUTROPHILS # (AUTO) 3.2 X10'3 (1.8-7.7); NEUTROPHILS % (AUTO) 71.5 % (42-75); PLATELET COUNT 349 X10'3 (140-440); RED BLOOD COUNT 2.56 X10'6 (4.20-5.60); RED CELL DISTRIBUTION WIDTH 20.5 % (11.5-14.5); WHITE BLOOD COUNT 4.4 X10'3 (4.5-11.0)
[2023-09-24 06:53] LABS: ALANINE AMINOTRANSFERASE 15 U/L (12-78); ALBUMIN 1.7 G/DL (3.4-5.0); ALBUMIN/GLOBULIN RATIO 0.5 (1.1-1.5); ALKALINE PHOSPHATASE 105 IU/L (46-116); ANION GAP 5 (8-16); ASPARTATE AMINO TRANSFERASE 12 U/L (10-37); BILIRUBIN,TOTAL 0.4 MG/DL (0.1-1.0); BLOOD UREA NITROGEN 4 MG/DL (7-18); BUN/CREATININE RATIO 7.1 (10.0-20.0); CALCIUM 8.7 MG/DL (8.5-10.1); CHLORIDE 104 MMOL/L (99-107); CREATININE 0.56 MG/DL (0.40-0.90); GLUCOSE 82 MG/DL (70-104); POTASSIUM 3.6 MMOL/L (3.5-5.1); SODIUM 137 MMOL/L (135-145); TOTAL CARBON DIOXIDE 27.6 MMOL/L (24-32); eCRCL 60 ML/MIN; eGFR > 90 ML/MIN
[2023-09-24 08:00] VITALS: RESP 16; O2SAT 98
[2023-09-24] MEDS ORDERED: MELA1TAB28 PO (12:22)
[2023-09-24] MEDS ORDERED: PANT40TA54 PO (12:22)
[2023-09-24] MEDS ORDERED: VITD400T PO (12:22)
[2023-09-24] MEDS ORDERED: FERR324T4 PO (12:23)
== END 2023-09-24 16:20 | disposition home health service (06) | DRG 326 ==
LOC: ER 13:10 → ED HOLD 16:01 → PCU 3S 18:08 → CICU 2S 09-12 16:11 → SUR 3N 09-13 20:00 → PCU 3S 09-19 11:35
PROVIDERS: ADMIT Family Medicine; ATTEND Internal Medicine Critical Care Medicine
PROC: BW211ZZ Computerized Tomography (CT Scan) of Abdomen and Pelvis using Low Osmolar Contrast (ICD-10-PCS; 2023-09-11)
PROC: 30233N1 Transfusion of Nonautologous Red Blood Cells into Peripheral Vein, Percutaneous Approach (ICD-10-PCS; 2023-09-11)
PROC: 0DB78ZX Excision of Stomach, Pylorus, Via Natural or Artificial Opening Endoscopic, Diagnostic (ICD-10-PCS; 2023-09-12)
PROC: 0D1 Gastrointestinal System, Bypass (ICD-10-PCS; 2023-09-14)
PROC: CD171ZZ Planar Nuclear Medicine Imaging of Gastrointestinal Tract using Technetium 99m (Tc-99m) (ICD-10-PCS; 2023-09-14)
PROC: 0DB70ZZ Excision of Stomach, Pylorus, Open Approach (ICD-10-PCS; principal; 2023-09-14 19:03)
PROC: BW211ZZ Computerized Tomography (CT Scan) of Abdomen and Pelvis using Low Osmolar Contrast (ICD-10-PCS; 2023-09-18)
PROC: B32T1ZZ Computerized Tomography (CT Scan) of Left Pulmonary Artery using Low Osmolar Contrast (ICD-10-PCS; 2023-09-21)
PROC: B3201ZZ Computerized Tomography (CT Scan) of Thoracic Aorta using Low Osmolar Contrast (ICD-10-PCS; 2023-09-21)
PROC: B32S1ZZ Computerized Tomography (CT Scan) of Right Pulmonary Artery using Low Osmolar Contrast (ICD-10-PCS; 2023-09-21)
PROC: BW211ZZ Computerized Tomography (CT Scan) of Abdomen and Pelvis using Low Osmolar Contrast (ICD-10-PCS; 2023-09-23)
DX: K25.4 Chronic or unspecified gastric ulcer with hemorrhage (principal); N17.0 Acute kidney failure with tubular necrosis; E44.0 Moderate protein-calorie malnutrition; E87.1 Hypo-osmolality and hyponatremia; I31.39 Other pericardial effusion (noninflammatory); Z68.1 Body mass index [BMI] 19.9 or less, adult; K26.4 Chronic or unspecified duodenal ulcer with hemorrhage; D50.9 Iron deficiency anemia, unspecified; I10 Essential (primary) hypertension; E87.6 Hypokalemia; E83.51 Hypocalcemia; K20.90 Esophagitis, unspecified without bleeding; E83.42 Hypomagnesemia; K80.20 Calculus of gallbladder without cholecystitis without obstruction; E86.0 Dehydration; G62.9 Polyneuropathy, unspecified; T39.395A Adverse effect of other nonsteroidal anti-inflammatory drugs [NSAID], initial encounter; Y92.89 Other specified places as the place of occurrence of the external cause; Z85.3 Personal history of malignant neoplasm of breast; Z82.49 Family history of ischemic heart disease and other diseases of the circulatory system; Z88.2 Allergy status to sulfonamides
CPT/HCPCS: 36415; 36430; 43239; 71045; 71275; 74176; 74177; 76881; 78278; 80048; 80053; 81001; 82728; 82948; 83540; 83550; 83735; 84132; 85008; 85025; 85027; 85045; 85379; 85610; 85730; 86704; 86705; 86885; 86900; 86901; 86920; 87081; 87340; 88305; 88307; 88342; 90732; 93005; 93970; 96374; 97110; 97116; 97161; 97530; 99152; 99285; A4421; A4615; A4618; A4620; A6212; A6213; A6253; A6258; A6402; A6449; A7000; A9560; C1758; C9290; G0378; J0131; J0694; J1100; J1170; J1644; J1756; J2175; J2250; J2405; J2470; J2704; J2710; J3010; J3480; J3490; J7030; J7040; J7050; J7120; P9016; Q9963; Q9967

== ENCOUNTER 2023-10-01 10:56 | Emergency (ER) | payer MEDICARE ==
[~2023-10-01] VITALS: Ht 157.5 cm; Wt 44.6 kg
[~2023-10-01 10:56] MED LIST: FERR324T4 PO; LOSA100T58 PO; MELA1TAB28 PO; METO-395 PO; PANT40TA54 PO; VITD400T PO
[2023-10-01] MEDS ORDERED: iohexol 300mg/ml 100ml inj. ONE (15:05)
[2023-10-01 15:52] LABS: INR 1.1 INR; PROTHROMBIN TIME 11.9 SECONDS (9.0-12.0)
[2023-10-01 15:56] LABS: ALANINE AMINOTRANSFERASE 13 U/L (12-78); ALBUMIN/GLOBULIN RATIO 0.6 (1.1-1.5); ALKALINE PHOSPHATASE 105 IU/L (46-116); ANION GAP 10 (8-16); ASPARTATE AMINO TRANSFERASE 27 U/L (10-37); BILIRUBIN,TOTAL 0.5 MG/DL (0.1-1.0); BLOOD UREA NITROGEN 8 MG/DL (7-18); CALCIUM 9.2 MG/DL (8.5-10.1); CHLORIDE 101 MMOL/L (99-107); CREATININE 0.57 MG/DL (0.40-0.90); GLUCOSE 86 MG/DL (70-104); SODIUM 133 MMOL/L (135-145); TOTAL CARBON DIOXIDE 21.7 MMOL/L (24-32); TOTAL PROTEIN 5.6 G/DL (6.4-8.2); eCRCL 56 ML/MIN; eGFR > 90 ML/MIN
[2023-10-01 16:04] LABS: POTASSIUM 3.9 MMOL/L (3.5-5.1)
[2023-10-01 17:57] LABS: BASOPHILS % (AUTO) 0.3 % (0-1); EOSINOPHILS % (AUTO) 0.4 % (0-6); HEMATOCRIT 28.9 % (35.0-45.0); HEMOGLOBIN 9.2 g/dl (12.0-16.0); LYMPHOCYTES # (AUTO) 0.7 X10'3 (1.1-4.8); LYMPHOCYTES % (AUTO) 8.7 % (21-51); MEAN CORPUSCULAR HEMOGLOBIN 29.7 PG (27.0-31.0); MEAN CORPUSCULAR HGB CONC 31.9 g/dL (33.0-36.5); MEAN CORPUSCULAR VOLUME 93.1 FL (78-98); MEAN PLATELET VOLUME 6.5 FL (7.4-10.4); MONOCYTES # (AUTO) 0.7 X10'3 (0-0.9); NEUTROPHILS % (AUTO) 82.6 % (42-75); PLATELET COUNT 350 X10'3 (140-440); RED CELL DISTRIBUTION WIDTH 20.8 % (11.5-14.5); WHITE BLOOD COUNT 8.5 X10'3 (4.5-11.0)
[2023-10-01 20:55] LABS: ANISOCYTOSIS 3+; PLATELET ESTIMATE NORMAL
[2023-10-01 20:56] LABS: BURR CELLS FEW; TEAR DROP CELLS FEW
[2023-10-01] MEDS: HYDROcodone/acetaminophen 5mg/325mg tablet PO ONE (21:39)
[2023-10-01 21:48] LABS: BILIRUBIN,URINE SMALL (Neg); CLARITY,URINE CLEAR (Clear); GLUCOSE, URINE NEGATIVE (Neg); KETONES,URINE 40 mg/dl (Neg); LEUKOCYTE ESTERASE ,URINE NEGATIVE (Neg); NITRITES, URINE NEGATIVE (Neg); OCCULT BLOOD,URINE NEGATIVE (Neg); PROTEIN,URINE TRACE mg/dl (Neg); UROBILINOGEN,URINE 0.2 E.U/dL (0.2-1.0)
[2023-10-01 21:53] LABS: UA COLLECTION TYPE CLN CATCH MIDSTREAM
[2023-10-01 21:54] LABS: COLOR,URINE DARK YELLOW (Yellow)
[2023-10-01 21:56] LABS: BACTERIA,URINE NONE SEEN /HPF (Neg); RBC,URINE 0-2 /HPF (0-2); RENAL CELLS, URINE FEW /HPF; SQUAMOUS EPITHELIAL CELL,UR FEW /LPF (FEW); WBC,URINE 0-4 /HPF (0-4)
[2023-10-02] MEDS: normal saline 1000ml 1,000 ML IV ONE (07:34)
[2023-10-02 08:16] LABS: ALANINE AMINOTRANSFERASE 14 U/L (12-78); ALBUMIN 2.4 G/DL (3.4-5.0); ALBUMIN/GLOBULIN RATIO 0.5 (1.1-1.5); ALKALINE PHOSPHATASE 123 IU/L (46-116); ANION GAP 12 (8-16); ASPARTATE AMINO TRANSFERASE 24 U/L (10-37); BILIRUBIN,TOTAL 0.4 MG/DL (0.1-1.0); BLOOD UREA NITROGEN 5 MG/DL (7-18); BUN/CREATININE RATIO 7.8 (10.0-20.0); CALCIUM 9.5 MG/DL (8.5-10.1); CHLORIDE 101 MMOL/L (99-107); CREATININE 0.64 MG/DL (0.40-0.90); GLUCOSE 78 MG/DL (70-104); SODIUM 137 MMOL/L (135-145); TOTAL CARBON DIOXIDE 24.2 MMOL/L (24-32); TOTAL PROTEIN 6.8 G/DL (6.4-8.2); eCRCL 50 ML/MIN; eGFR 90 ML/MIN
[2023-10-02 08:31] LABS: POTASSIUM 3.3 MMOL/L (3.5-5.1)
[2023-10-02] MEDS: IOHEXOL 12MG/ML oral solution 500 ML BOTTLE PO ONE (08:35)
[2023-10-02] MEDS ORDERED: iohexol 300mg/ml 100ml inj. ONE (09:36)
[2023-10-02] MEDS: piperacillin/tazo 4.5gm/100ml 100 ML IV ONE (11:07)
[2023-10-02 11:29] LABS: BASOPHILS % (AUTO) 0.5 % (0-1); EOSINOPHILS % (AUTO) 0.4 % (0-6); HEMATOCRIT 29.6 % (35.0-45.0); HEMOGLOBIN 9.5 g/dl (12.0-16.0); LYMPHOCYTES # (AUTO) 0.6 X10'3 (1.1-4.8); LYMPHOCYTES % (AUTO) 7.7 % (21-51); MEAN CORPUSCULAR HEMOGLOBIN 29.7 PG (27.0-31.0); MEAN CORPUSCULAR HGB CONC 32.2 g/dL (33.0-36.5); MEAN CORPUSCULAR VOLUME 92.3 FL (78-98); MEAN PLATELET VOLUME 6.8 FL (7.4-10.4); MONOCYTES # (AUTO) 0.6 X10'3 (0-0.9); MONOCYTES % (AUTO) 7.8 % (2-12); NEUTROPHILS # (AUTO) 6.1 X10'3 (1.8-7.7); NEUTROPHILS % (AUTO) 83.6 % (42-75); PLATELET COUNT 363 X10'3 (140-440); RED CELL DISTRIBUTION WIDTH 20.4 % (11.5-14.5); WHITE BLOOD COUNT 7.2 X10'3 (4.5-11.0)
[2023-10-02] MEDS ORDERED: CIPR-202 PO (11:36)
[2023-10-02] MEDS ORDERED: METR-159 PO (11:36)
[2023-10-02 19:06] VITALS: BP 128/62; PULSE 87; RESP 16; TEMP 98.3; O2SAT 95
== END 2023-10-02 13:00 | disposition home or self-care (01) ==
LOC: ER 10:56
DX: K91.872 Postprocedural seroma of a digestive system organ or structure following a digestive system procedure (principal); Z88.2 Allergy status to sulfonamides; Z79.899 Other long term (current) drug therapy
CPT/HCPCS: 36415; 71260; 74177; 80053; 81001; 83605; 85008; 85025; 85610; 87040; 93971; 96361; 96365; 99285; A6253; A6258; A6402; J2543; J7030; Q9967; A6449

== ENCOUNTER 2023-10-06 13:07 | Inpatient (IN) | payer MEDICARE ==
[~2023-10-06] VITALS: Ht 157.5 cm; Wt 59.7 kg
[~2023-10-06 13:07] MED LIST changes: +CIPR-202 PO; +METR-159 PO
[2023-10-06 14:08] LABS: ALBUMIN 2.6 G/DL (3.4-5.0); ANION GAP 13 (8-16); BLOOD UREA NITROGEN 10 MG/DL (7-18); BUN/CREATININE RATIO 7.6 (10.0-20.0); CALCIUM 9.6 MG/DL (8.5-10.1); CHLORIDE 101 MMOL/L (99-107); CREATININE 1.32 MG/DL (0.40-0.90); GLUCOSE 124 MG/DL (70-104); POTASSIUM 3.1 MMOL/L (3.5-5.1); SODIUM 138 MMOL/L (135-145); TOTAL CARBON DIOXIDE 24.1 MMOL/L (24-32); eCRCL 23 ML/MIN; eGFR 39 ML/MIN
[2023-10-06 14:09] LABS: BASOPHILS # (AUTO) 0.1 X10'3 (0-0.2); BASOPHILS % (AUTO) 0.5 % (0-1); EOSINOPHILS % (AUTO) 0.1 % (0-6); HEMOGLOBIN 11.3 g/dl (12.0-16.0); LYMPHOCYTES # (AUTO) 0.7 X10'3 (1.1-4.8); LYMPHOCYTES % (AUTO) 6.9 % (21-51); MEAN CORPUSCULAR HEMOGLOBIN 29.6 PG (27.0-31.0); MEAN CORPUSCULAR HGB CONC 32.4 g/dL (33.0-36.5); MEAN CORPUSCULAR VOLUME 91.3 FL (78-98); MONOCYTES # (AUTO) 0.7 X10'3 (0-0.9); MONOCYTES % (AUTO) 6.5 % (2-12); NEUTROPHILS # (AUTO) 9.1 X10'3 (1.8-7.7); PLATELET COUNT 378 X10'3 (140-440); RED BLOOD COUNT 3.84 X10'6 (4.20-5.60); RED CELL DISTRIBUTION WIDTH 19.8 % (11.5-14.5); WHITE BLOOD COUNT 10.6 X10'3 (4.5-11.0)
[2023-10-06] MEDS ORDERED: acetaminophen 325mg tablet PO PRN (17:45)
[2023-10-06] MEDS ORDERED: magnesium sulf-water 2g/50mL 50 ML IV PRN (17:45)
[2023-10-06] MEDS ORDERED: mag hydrox/Alum hydrox/simeth 30ml oral suspension PO PRN (17:45)
[2023-10-06] MEDS ORDERED: potassium Cl 20 mEq SR tablet PO PRN (17:45)
[2023-10-06] MEDS ORDERED: magnesium hydroxide 30ml (MOM) UD suspension PO PRN (17:45)
[2023-10-06] MEDS ORDERED: ondansetron/PF 4mg/2ml inj IV PRN (17:45)
[2023-10-06] MEDS ORDERED: non-formulary drug (Melatonin/Pyridoxine HCl (B6) (Melatonin 3 mg Tablet) 1 TAB) PO PRN (18:20)
[2023-10-06 18:25] LABS: BASOPHILS % (AUTO) 0.5 % (0-1); EOSINOPHILS % (AUTO) 0 % (0-6); HEMATOCRIT 32.7 % (35.0-45.0); HEMOGLOBIN 10.6 g/dl (12.0-16.0); LYMPHOCYTES # (AUTO) 0.6 X10'3 (1.1-4.8); MEAN CORPUSCULAR HEMOGLOBIN 29.6 PG (27.0-31.0); MEAN CORPUSCULAR HGB CONC 32.6 g/dL (33.0-36.5); MEAN CORPUSCULAR VOLUME 90.9 FL (78-98); MEAN PLATELET VOLUME 6.7 FL (7.4-10.4); MONOCYTES # (AUTO) 0.4 X10'3 (0-0.9); MONOCYTES % (AUTO) 6.2 % (2-12); NEUTROPHILS # (AUTO) 6.1 X10'3 (1.8-7.7); NEUTROPHILS % (AUTO) 84.3 % (42-75); PLATELET COUNT 334 X10'3 (140-440); RED CELL DISTRIBUTION WIDTH 19.7 % (11.5-14.5); WHITE BLOOD COUNT 7.2 X10'3 (4.5-11.0)
[2023-10-06] MEDS: normal saline 1000ml 1,000 ML IV SCH (18:25)
[2023-10-06 18:50] LABS: ALANINE AMINOTRANSFERASE 14 U/L (12-78); ALBUMIN 2.3 G/DL (3.4-5.0); ALBUMIN/GLOBULIN RATIO 0.6 (1.1-1.5); ALKALINE PHOSPHATASE 88 IU/L (46-116); ANION GAP 10 (8-16); ASPARTATE AMINO TRANSFERASE 37 U/L (10-37); BILIRUBIN,TOTAL 0.4 MG/DL (0.1-1.0); BLOOD UREA NITROGEN 11 MG/DL (7-18); BUN/CREATININE RATIO 9.9 (10.0-20.0); CALCIUM 9.4 MG/DL (8.5-10.1); CHLORIDE 102 MMOL/L (99-107); CREATININE 1.11 MG/DL (0.40-0.90); GLUCOSE 102 MG/DL (70-104); MAGNESIUM 1.7 MG/DL (1.5-2.4); PHOSPHORUS 2.6 MG/DL (2.3-4.5); PRO BRAIN NATRIURETIC PEPTIDE 365 PG/ML (0-450); SODIUM 139 MMOL/L (135-145); TOTAL PROTEIN 6.2 G/DL (6.4-8.2); eCRCL 27 ML/MIN; eGFR 47 ML/MIN
[2023-10-06 19:15] LABS: POTASSIUM 2.7 MMOL/L (3.5-5.1)
[2023-10-06] MEDS: K and/or MAG REPLACEMENT MC SCH (19:40)
[2023-10-06] MEDS: piperacillin/tazo 4.5gm/100ml 100 ML IV SCH (19:58)
[2023-10-06] MEDS ORDERED: metroNIDAZOLE 500mg tablet PO SCH (20:00)
[2023-10-06] MEDS: docusate sod 100mg capsule PO SCH (20:00)
[2023-10-06] MEDS ORDERED: ciprofloxacin 250mg tablet PO SCH (20:00)
[2023-10-06] MEDS: potassium Cl 40MEQ/1/2NS 520ml 520 ML IV PRN (20:01)
[2023-10-06 20:06] LABS: ANISOCYTOSIS 2+; BURR CELLS 1+; ELLIPTOCYTES FEW; PLATELET ESTIMATE NORMAL
[2023-10-06 20:30] VITALS: BP 132/65; PULSE 81; RESP 15; TEMP 98; O2SAT 96
[2023-10-06 22:00] VITALS: BP 132/65; PULSE 81; RESP 15; TEMP 98; O2SAT 96
[2023-10-06] MEDS: HYDROcodone/acetaminophen 5mg/325mg tablet PO PRN (22:00)
[2023-10-06] MEDS: diatr meglu/diatrizoate 30ml oral sol.-(3 dose) bottle PO SCH (22:56)
[2023-10-06] MEDS: pantoprazole 40mg Tablet.DR PO SCH (22:56)
[2023-10-06] MEDS: heparin, porcine 5000 units/ml vial SQ SCH (22:57)
[2023-10-07] VITALS (27 sets, daily range): BP systolic 117–172; BP diastolic 59–98; PULSE 69–109; RESP 13–28; TEMP 96.8–98.5; O2SAT 96–100
[2023-10-07 04:15] LABS: BASOPHILS # (AUTO) 0.1 X10'3 (0-0.2); BASOPHILS % (AUTO) 1.1 % (0-1); EOSINOPHILS % (AUTO) 0.5 % (0-6); HEMATOCRIT 26.6 % (35.0-45.0); HEMOGLOBIN 8.8 g/dl (12.0-16.0); LYMPHOCYTES # (AUTO) 0.7 X10'3 (1.1-4.8); LYMPHOCYTES % (AUTO) 12.2 % (21-51); MEAN CORPUSCULAR HEMOGLOBIN 29.9 PG (27.0-31.0); MEAN CORPUSCULAR VOLUME 90.6 FL (78-98); MONOCYTES # (AUTO) 0.5 X10'3 (0-0.9); MONOCYTES % (AUTO) 9.1 % (2-12); NEUTROPHILS # (AUTO) 4.5 X10'3 (1.8-7.7); NEUTROPHILS % (AUTO) 77.1 % (42-75); PLATELET COUNT 255 X10'3 (140-440); RED BLOOD COUNT 2.94 X10'6 (4.20-5.60); RED CELL DISTRIBUTION WIDTH 19.6 % (11.5-14.5); WHITE BLOOD COUNT 5.8 X10'3 (4.5-11.0)
[2023-10-07 04:25] LABS: APTT 31 SECONDS (22-32); INR 1.2 INR
[2023-10-07 04:34] LABS: ALANINE AMINOTRANSFERASE 9 U/L (12-78); ALBUMIN 1.8 G/DL (3.4-5.0); ALBUMIN/GLOBULIN RATIO 0.6 (1.1-1.5); ALKALINE PHOSPHATASE 66 IU/L (46-116); ANION GAP 8 (8-16); ASPARTATE AMINO TRANSFERASE 13 U/L (10-37); BILIRUBIN,TOTAL 0.2 MG/DL (0.1-1.0); BLOOD UREA NITROGEN 10 MG/DL (7-18); CALCIUM 8.4 MG/DL (8.5-10.1); CHLORIDE 108 MMOL/L (99-107); CHOL/HDL RATIO 1.4 (0.00-4.99); CHOLESTEROL 118 MG/DL (0-200); CREATININE 0.91 MG/DL (0.40-0.90); GLUCOSE 105 MG/DL (70-104); HDL CHOLESTEROL 82 MG/DL (35-60); LDL CHOLESTEROL 22 MG/DL (50-100); MAGNESIUM 1.6 MG/DL (1.5-2.4); PHOSPHORUS 2.2 MG/DL (2.3-4.5); POTASSIUM 4.1 MMOL/L (3.5-5.1); SODIUM 139 MMOL/L (135-145); TOTAL CARBON DIOXIDE 23.1 MMOL/L (24-32); TOTAL PROTEIN 4.9 G/DL (6.4-8.2); TRIGLYCERIDES 46 MG/DL (20-135); eCRCL 33 ML/MIN; eGFR 60 ML/MIN
[2023-10-07] MEDS: metoprolol succinate 25mg (24-HOUR) SR. Tablet PO SCH (07:57)
[2023-10-07] MEDS: ferrous sulfate 325mg tablet PO SCH (07:58)
[2023-10-07] MEDS: losartan 50mg tablet PO SCH (07:58)
[2023-10-07] MEDS ORDERED: DEXTROSE 15 GM of carb/4 tabs (each vial/BOTTLE has 4 tablets) PO PRN ×2 (08:15)
[2023-10-07] MEDS ORDERED: glucagon, human recombinant 1mg kit SUBCUT PRN (08:15)
[2023-10-07] MEDS ORDERED: dextrose 50%-water 50ml dispensing syringe IV PRN ×2 (08:15)
[2023-10-07 08:56] LABS: HEMOGLOBIN A1C 4.5 % (4.5-6.2)
[2023-10-07] MEDS ORDERED: iohexol 300mg/ml 100ml inj. ONE (09:05)
[2023-10-07] MEDS ORDERED: fentaNYL/PF 50MCG/1 ML 2ML syringe ONE ×2 (10:34→13:13)
[2023-10-07] MEDS ORDERED: midazolam 1 mg/ML 2ml injection ONE (10:35)
[2023-10-07] MEDS ORDERED: rocuronium 10mg/ml inj IV ONE ×2 (10:35→14:54)
[2023-10-07] MEDS ORDERED: propofol inj 20 ML IV ONE (10:35)
[2023-10-07] MEDS ORDERED: LIDOcaine 2% (20mg/ml) 5ml vial ONE (10:35)
[2023-10-07] MEDS ORDERED: labetalol 20mg/4ml (5mg/ml) syringe IV PRN (11:30)
[2023-10-07] MEDS: ringers solution, lacted 1,000 ML IV SCH (11:30)
[2023-10-07] MEDS ORDERED: hydrALAZINE 20mg/ml inj. IV PRN (11:30)
[2023-10-07] MEDS ORDERED: ondansetron/PF 4mg/2ml inj IV PRN (11:30)
[2023-10-07] MEDS ORDERED: morphine 2 MG/ML inj. syringe IV PRN (11:30)
[2023-10-07] MEDS ORDERED: fentaNYL/PF 50MCG/1 ML 2ML syringe IV PRN (11:30)
[2023-10-07] MEDS ORDERED: sevoflurane 250ml liquid IH ONE (11:40)
[2023-10-07] MEDS ORDERED: ondansetron/PF 4mg/2ml inj ONE (12:00)
[2023-10-07] MEDS ORDERED: dexamethasone sod phosphate 4mg/ml inj. ONE (12:00)
[2023-10-07] MEDS ORDERED: albumin (Human) 5% 250ml 250 ML IV ONE (12:03)
[2023-10-07] MEDS ORDERED: sugammadex 200mg/2ml injection IV ONE (13:39)
[2023-10-07] MEDS ORDERED: acetaminophen 1,000mg/100ml IV 100 ML IV ONE (14:51)
[2023-10-07] MEDS ORDERED: naloxone 0.4 mg/ml inj IV PRN ×2 (15:30)
[2023-10-07] MEDS: fentaNYL/PF 50MCG/1 ML 2ML syringe IV PRN (15:30)
[2023-10-07] MEDS: morphine 4 MG/ML inj SYRINge IV PRN (15:52)
[2023-10-07] MEDS: HYDROmorph/NS 0.2 mg/ml PCA 100 ML IV SCH (16:32)
[2023-10-07] MEDS: pantoprazole 40 MG vial IV SCH (21:21)
[2023-10-08 02:00] VITALS: BP 154/79; PULSE 92; RESP 14; TEMP 98.7; O2SAT 97
[2023-10-08 04:27] LABS: EOSINOPHILS % (AUTO) 0 % (0-6); LYMPHOCYTES # (AUTO) 0.3 X10'3 (1.1-4.8); LYMPHOCYTES % (AUTO) 1.5 % (21-51); MEAN PLATELET VOLUME 7.3 FL (7.4-10.4); MONOCYTES # (AUTO) 1.1 X10'3 (0-0.9)
[2023-10-08 04:29] LABS: BASOPHILS # (AUTO) 0.1 X10'3 (0-0.2); BASOPHILS % (AUTO) 0.4 % (0-1); HEMATOCRIT 30.5 % (35.0-45.0); HEMOGLOBIN 9.5 g/dl (12.0-16.0); MEAN CORPUSCULAR HGB CONC 31.3 g/dL (33.0-36.5); MEAN CORPUSCULAR VOLUME 92.7 FL (78-98); NEUTROPHILS # (AUTO) 20.9 X10'3 (1.8-7.7); NEUTROPHILS % (AUTO) 93.1 % (42-75); PLATELET COUNT 311 X10'3 (140-440); RED BLOOD COUNT 3.29 X10'6 (4.20-5.60); WHITE BLOOD COUNT 22.5 X10'3 (4.5-11.0)
[2023-10-08 04:36] LABS: APTT 29 SECONDS (22-32); INR 1.2 INR; PROTHROMBIN TIME 12.2 SECONDS (9.0-12.0)
[2023-10-08 04:40] LABS: % IRON SATURATION 11 % (11-46); IRON 11 UG/DL (49-151); TOTAL IRON BINDING CAPACITY 100 UG/DL (259-388)
[2023-10-08 05:18] LABS: ALANINE AMINOTRANSFERASE 18 U/L (12-78); ALBUMIN 2.1 G/DL (3.4-5.0); ALBUMIN/GLOBULIN RATIO 0.7 (1.1-1.5); ALKALINE PHOSPHATASE 61 IU/L (46-116); ANION GAP 9 (8-16); ASPARTATE AMINO TRANSFERASE 23 U/L (10-37); BILIRUBIN,TOTAL 0.3 MG/DL (0.1-1.0); BLOOD UREA NITROGEN 9 MG/DL (7-18); BUN/CREATININE RATIO 11.7 (10.0-20.0); CALCIUM 8.3 MG/DL (8.5-10.1); CHLORIDE 108 MMOL/L (99-107); CREATININE 0.77 MG/DL (0.40-0.90); GLUCOSE 147 MG/DL (70-104); MAGNESIUM 1.4 MG/DL (1.5-2.4); PHOSPHORUS 3.2 MG/DL (2.3-4.5); POTASSIUM 3.2 MMOL/L (3.5-5.1); SODIUM 140 MMOL/L (135-145); TOTAL CARBON DIOXIDE 23.4 MMOL/L (24-32); TOTAL PROTEIN 5.3 G/DL (6.4-8.2); eCRCL 39 ML/MIN; eGFR 72 ML/MIN
[2023-10-08 05:20] LABS: FERRITIN 2719 NG/ML (8-252)
[2023-10-08 06:00] VITALS: BP 156/74; PULSE 89; RESP 18; TEMP 97.1; O2SAT 97
[2023-10-08] MEDS: potassium Cl 20 mEq SR tablet PO PRN (08:11)
[2023-10-08 10:00] VITALS: BP 152/76; PULSE 92; RESP 18; TEMP 97.6; O2SAT 98
[2023-10-08] MEDS ORDERED: POTASSIUM CHLORIDE 20 MEQ/15 ML oral solution PO PRN (12:56)
[2023-10-08] MEDS ORDERED: POTASSIUM CHLORIDE 20 MEQ/15 ML oral solution NG PRN (12:57)
[2023-10-08] MEDS: Chloraseptic (Phenol) Spray 177ml MM PRN (13:32)
[2023-10-08] MEDS: POTASSIUM CHLORIDE 20 MEQ/15 ML oral solution NG PRN (13:33)
[2023-10-08 18:00] VITALS: BP 125/55; PULSE 89; RESP 16; TEMP 98.5; O2SAT 97
[2023-10-08 20:00] VITALS: RESP 16; O2SAT 99
[2023-10-08 22:00] VITALS: BP 145/68; PULSE 93; RESP 15; TEMP 98.1; O2SAT 99
[2023-10-09] VITALS (7 sets, daily range): BP systolic 116–154; BP diastolic 66–95; PULSE 82–152; RESP 14–22; TEMP 97.9–99.5; O2SAT 96–100
[2023-10-09] MEDS: magnesium sulf-water 4G/100mL 100 ML IV PRN (00:39)
[2023-10-09 04:31] LABS: BASOPHILS # (AUTO) 0.1 X10'3 (0-0.2); BASOPHILS % (AUTO) 0.3 % (0-1); EOSINOPHILS % (AUTO) 0.2 % (0-6); HEMATOCRIT 27.5 % (35.0-45.0); HEMOGLOBIN 8.5 g/dl (12.0-16.0); LYMPHOCYTES # (AUTO) 0.4 X10'3 (1.1-4.8); LYMPHOCYTES % (AUTO) 2.4 % (21-51); MEAN CORPUSCULAR HEMOGLOBIN 29.2 PG (27.0-31.0); MEAN CORPUSCULAR HGB CONC 30.8 g/dL (33.0-36.5); MEAN CORPUSCULAR VOLUME 94.7 FL (78-98); MEAN PLATELET VOLUME 7.6 FL (7.4-10.4); MONOCYTES # (AUTO) 1.2 X10'3 (0-0.9); MONOCYTES % (AUTO) 6.3 % (2-12); NEUTROPHILS # (AUTO) 16.7 X10'3 (1.8-7.7); NEUTROPHILS % (AUTO) 90.8 % (42-75); PLATELET COUNT 232 X10'3 (140-440); RED BLOOD COUNT 2.91 X10'6 (4.20-5.60); RED CELL DISTRIBUTION WIDTH 20.5 % (11.5-14.5); WHITE BLOOD COUNT 18.4 X10'3 (4.5-11.0)
[2023-10-09 04:36] LABS: APTT 33 SECONDS (22-32); INR 1.3 INR; PROTHROMBIN TIME 13.2 SECONDS (9.0-12.0)
[2023-10-09 04:47] LABS: ALANINE AMINOTRANSFERASE 24 U/L (12-78); ALBUMIN 1.7 G/DL (3.4-5.0); ALBUMIN/GLOBULIN RATIO 0.5 (1.1-1.5); ALKALINE PHOSPHATASE 58 IU/L (46-116); ANION GAP 8 (8-16); ASPARTATE AMINO TRANSFERASE 20 U/L (10-37); BILIRUBIN,TOTAL 0.3 MG/DL (0.1-1.0); BLOOD UREA NITROGEN 13 MG/DL (7-18); BUN/CREATININE RATIO 20.6 (10.0-20.0); CALCIUM 8.1 MG/DL (8.5-10.1); CHLORIDE 112 MMOL/L (99-107); CREATININE 0.63 MG/DL (0.40-0.90); GLUCOSE 105 MG/DL (70-104); MAGNESIUM 2.1 MG/DL (1.5-2.4); POTASSIUM 3.8 MMOL/L (3.5-5.1); SODIUM 142 MMOL/L (135-145); TOTAL CARBON DIOXIDE 22.1 MMOL/L (24-32); TOTAL PROTEIN 4.8 G/DL (6.4-8.2); eCRCL 48 ML/MIN; eGFR > 90 ML/MIN
[2023-10-09 04:51] LABS: ANISOCYTOSIS 3+; BURR CELLS 2+; ELLIPTOCYTES FEW; PLATELET ESTIMATE NORMAL
[2023-10-09] MEDS: dextrose 50%-water 50ml dispensing syringe IV ONE (09:43)
[2023-10-09] MEDS ORDERED: normal saline 500ml IV soln 500 ML IV SCH (09:50)
[2023-10-09] MEDS ORDERED: metoprolol tartrate 1mg/ml inj IV ONE (09:50)
[2023-10-09] MEDS ORDERED: amiodarone 150mg/dext, iso-os 100 ML IV ONE (10:45)
[2023-10-09] MEDS ORDERED: amiodarone/D5 360MG/200ML BAG 200 ML IV SCH ×2 (10:45)
[2023-10-09] MEDS: amiodarone 150mg/dext, iso-os 100 ML IV ONE ×2 (10:45→18:55)
[2023-10-09] MEDS: magnesium sulf-water 2g/50mL 50 ML IV ONE (13:48)
[2023-10-09] MEDS: amiodarone/D5 360MG/200ML BAG 200 ML IV SCH (19:32)
[2023-10-10] VITALS (14 sets, daily range): BP systolic 85–133; BP diastolic 49–69; PULSE 78–115; RESP 12–27; TEMP 97.8–98.1; O2SAT 93–98
[2023-10-10] MEDS: acetaminophen 325mg tablet PO PRN (04:25)
[2023-10-10 06:11] LABS: BASOPHILS % (AUTO) 0 % (0-1); EOSINOPHILS % (AUTO) 0 % (0-6); HEMOGLOBIN 9.1 g/dl (12.0-16.0); LYMPHOCYTES # (AUTO) 0.3 X10'3 (1.1-4.8); LYMPHOCYTES % (AUTO) 1.1 % (21-51); MEAN CORPUSCULAR HEMOGLOBIN 29.1 PG (27.0-31.0); MEAN CORPUSCULAR HGB CONC 31.6 g/dL (33.0-36.5); MEAN CORPUSCULAR VOLUME 92.2 FL (78-98); MEAN PLATELET VOLUME 7.3 FL (7.4-10.4); MONOCYTES # (AUTO) 1.3 X10'3 (0-0.9); MONOCYTES % (AUTO) 5.4 % (2-12); NEUTROPHILS # (AUTO) 22.8 X10'3 (1.8-7.7); NEUTROPHILS % (AUTO) 93.5 % (42-75); PLATELET COUNT 262 X10'3 (140-440); RED BLOOD COUNT 3.14 X10'6 (4.20-5.60); RED CELL DISTRIBUTION WIDTH 20.5 % (11.5-14.5); WHITE BLOOD COUNT 24.4 X10'3 (4.5-11.0)
[2023-10-10 06:18] LABS: INR 1.3 INR; PROTHROMBIN TIME 13.7 SECONDS (9.0-12.0)
[2023-10-10 06:24] LABS: ALANINE AMINOTRANSFERASE 22 U/L (12-78); ALBUMIN 1.4 G/DL (3.4-5.0); ALBUMIN/GLOBULIN RATIO 0.4 (1.1-1.5); ALKALINE PHOSPHATASE 61 IU/L (46-116); ANION GAP 10 (8-16); ASPARTATE AMINO TRANSFERASE 25 U/L (10-37); BILIRUBIN,TOTAL 0.4 MG/DL (0.1-1.0); BLOOD UREA NITROGEN 12 MG/DL (7-18); BUN/CREATININE RATIO 23.5 (10.0-20.0); CALCIUM 8.3 MG/DL (8.5-10.1); CHLORIDE 110 MMOL/L (99-107); CREATININE 0.51 MG/DL (0.40-0.90); GLUCOSE 125 MG/DL (70-104); MAGNESIUM 2.4 MG/DL (1.5-2.4); PHOSPHORUS 1.8 MG/DL (2.3-4.5); POTASSIUM 3.2 MMOL/L (3.5-5.1); SODIUM 144 MMOL/L (135-145); TOTAL CARBON DIOXIDE 24.3 MMOL/L (24-32); TOTAL PROTEIN 4.7 G/DL (6.4-8.2); eCRCL 59 ML/MIN; eGFR > 90 ML/MIN
[2023-10-10] MEDS ORDERED: ondansetron 4mg rapidly disintigrating tab PO PRN (15:20)
[2023-10-10] MEDS ORDERED: magnesium sulf-water 4G/100mL 100 ML IV PRN (17:55)
[2023-10-10] MEDS ORDERED: potassium Cl 40MEQ/270ML bag 250 ML IV PRN (17:55)
[2023-10-10] MEDS ORDERED: magnesium sulf-water 2g/50mL 50 ML IV PRN (17:55)
[2023-10-10] MEDS ORDERED: potassium Cl 20 mEq SR tablet PO PRN (17:55)
[2023-10-10] MEDS: potassium Cl 40MEQ/1/2NS 520ml 520 ML IV PRN (21:42)
[2023-10-11] VITALS (16 sets, daily range): BP systolic 106–134; BP diastolic 50–63; PULSE 87–104; RESP 10–24; TEMP 97.3–99.4; O2SAT 94–97
[2023-10-11 06:12] LABS: BASOPHILS % (AUTO) 0 % (0-1); EOSINOPHILS % (AUTO) 0 % (0-6); HEMATOCRIT 25.9 % (35.0-45.0); HEMOGLOBIN 8.3 g/dl (12.0-16.0); LYMPHOCYTES # (AUTO) 0.3 X10'3 (1.1-4.8); LYMPHOCYTES % (AUTO) 1.4 % (21-51); MEAN CORPUSCULAR HEMOGLOBIN 29.6 PG (27.0-31.0); MEAN CORPUSCULAR VOLUME 92.4 FL (78-98); MEAN PLATELET VOLUME 7.1 FL (7.4-10.4); MONOCYTES # (AUTO) 1.2 X10'3 (0-0.9); MONOCYTES % (AUTO) 4.9 % (2-12); NEUTROPHILS # (AUTO) 22.6 X10'3 (1.8-7.7); NEUTROPHILS % (AUTO) 93.7 % (42-75); PLATELET COUNT 263 X10'3 (140-440); RED CELL DISTRIBUTION WIDTH 20.6 % (11.5-14.5); WHITE BLOOD COUNT 24.2 X10'3 (4.5-11.0)
[2023-10-11 06:14] LABS: INR 1.4 INR; PROTHROMBIN TIME 14.1 SECONDS (9.0-12.0)
[2023-10-11 06:32] LABS: ANION GAP 10 (8-16); BLOOD UREA NITROGEN 13 MG/DL (7-18); BUN/CREATININE RATIO 29.5 (10.0-20.0); CALCIUM 8.1 MG/DL (8.5-10.1); CHLORIDE 113 MMOL/L (99-107); CREATININE 0.44 MG/DL (0.40-0.90); GLUCOSE 101 MG/DL (70-104); MAGNESIUM 2.1 MG/DL (1.5-2.4); PHOSPHORUS 1.3 MG/DL (2.3-4.5); POTASSIUM 3.9 MMOL/L (3.5-5.1); SODIUM 146 MMOL/L (135-145); TOTAL CARBON DIOXIDE 22.8 MMOL/L (24-32); eCRCL 68 ML/MIN; eGFR > 90 ML/MIN
[2023-10-11 06:43] LABS: ALANINE AMINOTRANSFERASE 20 U/L (12-78); ALBUMIN 1.1 G/DL (3.4-5.0); ALBUMIN/GLOBULIN RATIO 0.3 (1.1-1.5); ALKALINE PHOSPHATASE 59 IU/L (46-116); ASPARTATE AMINO TRANSFERASE 13 U/L (10-37); BILIRUBIN,TOTAL 0.3 MG/DL (0.1-1.0); TOTAL PROTEIN 4.4 G/DL (6.4-8.2)
[2023-10-11 07:22] LABS: BURR CELLS 1+; PLATELET ESTIMATE NORMAL
[2023-10-11 07:23] LABS: ANISOCYTOSIS 3+; ELLIPTOCYTES FEW
[2023-10-11] MEDS: normal saline 1000ml 1,000 ML IV SCH (15:55)
[2023-10-11] MEDS: PCA WASTE DOCUMENTATION 1 MG ML MC SCH (17:37)
[2023-10-11] MEDS: amiodarone 200mg tablet PO SCH (21:08)
[2023-10-12] VITALS (9 sets, daily range): BP systolic 104–132; BP diastolic 55–75; PULSE 53–134; RESP 14–18; TEMP 97–97.3; O2SAT 94–99
[2023-10-12 09:49] LABS: BASOPHILS # (AUTO) 0.1 X10'3 (0-0.2); BASOPHILS % (AUTO) 0.2 % (0-1); EOSINOPHILS % (AUTO) 0.1 % (0-6); HEMATOCRIT 26.7 % (35.0-45.0); HEMOGLOBIN 8.4 g/dl (12.0-16.0); LYMPHOCYTES # (AUTO) 0.4 X10'3 (1.1-4.8); LYMPHOCYTES % (AUTO) 1.8 % (21-51); MEAN CORPUSCULAR HEMOGLOBIN 29.1 PG (27.0-31.0); MEAN CORPUSCULAR HGB CONC 31.6 g/dL (33.0-36.5); MEAN CORPUSCULAR VOLUME 92.1 FL (78-98); MEAN PLATELET VOLUME 7.2 FL (7.4-10.4); MONOCYTES # (AUTO) 1.1 X10'3 (0-0.9); MONOCYTES % (AUTO) 4.4 % (2-12); NEUTROPHILS # (AUTO) 22.3 X10'3 (1.8-7.7); NEUTROPHILS % (AUTO) 93.5 % (42-75); PLATELET COUNT 335 X10'3 (140-440); RED CELL DISTRIBUTION WIDTH 20.9 % (11.5-14.5); WHITE BLOOD COUNT 23.9 X10'3 (4.5-11.0)
[2023-10-12 09:54] LABS: ALANINE AMINOTRANSFERASE 18 U/L (12-78); ALBUMIN 1.1 G/DL (3.4-5.0); ALBUMIN/GLOBULIN RATIO 0.3 (1.1-1.5); ALKALINE PHOSPHATASE 84 IU/L (46-116); ANION GAP 12 (8-16); ASPARTATE AMINO TRANSFERASE 12 U/L (10-37); BILIRUBIN,TOTAL 0.6 MG/DL (0.1-1.0); BLOOD UREA NITROGEN 12 MG/DL (7-18); BUN/CREATININE RATIO 28.6 (10.0-20.0); CALCIUM 8.5 MG/DL (8.5-10.1); CHLORIDE 111 MMOL/L (99-107); CREATININE 0.42 MG/DL (0.40-0.90); GLUCOSE 84 MG/DL (70-104); POTASSIUM 3.2 MMOL/L (3.5-5.1); SODIUM 144 MMOL/L (135-145); TOTAL PROTEIN 4.9 G/DL (6.4-8.2); eCRCL 72 ML/MIN; eGFR > 90 ML/MIN
[2023-10-12] MEDS: diatr meglu/diatrizoate 30ml oral sol.-(3 dose) bottle PO SCH (11:30)
[2023-10-12] MEDS ORDERED: magnesium sulf-water 4G/100mL 100 ML IV PRN (12:55)
[2023-10-12] MEDS ORDERED: potassium Cl 20 mEq SR tablet PO PRN ×2 (12:55)
[2023-10-12] MEDS ORDERED: magnesium sulf-water 2g/50mL 50 ML IV PRN (12:55)
[2023-10-12] MEDS ORDERED: magnesium Cl slow-release 64mg tablet PO PRN (12:55)
[2023-10-12] MEDS: HYDROmorphone inj. 0.5 MG/0.5 ML DISP.SYRIN IV PRN (13:07)
[2023-10-12] MEDS: labetalol 20mg/4ml (5mg/ml) syringe IV PRN (15:01)
[2023-10-12 15:32] LABS: MAGNESIUM 1.9 MG/DL (1.5-2.4); PHOSPHORUS 1.8 MG/DL (2.3-4.5); PREALBUMIN 5.3 MG/DL (19-36); TRIGLYCERIDES 89 MG/DL (20-135)
[2023-10-12] MEDS: potassium Cl 40MEQ/1/2NS 520ml 520 ML IV PRN (16:53)
[2023-10-12] MEDS ORDERED: fat emulsion 20% inj. 100 ML IV SCH (17:00)
[2023-10-12] MEDS ORDERED: Dextrose 10%-water IV solution 1,000 ML IV PRN (17:00)
[2023-10-12] MEDS ORDERED: MVI, adult No.4 with vit. K 10 ML in dextrose 5% water 500ml 500 ML IV SCH (17:00)
[2023-10-12] MEDS: metoprolol tartrate 1mg/ml inj IV ONE (23:37)
[2023-10-13] VITALS (19 sets, daily range): BP systolic 118–149; BP diastolic 54–86; PULSE 75–150; RESP 10–29; TEMP 97.2–98.8; O2SAT 90–99
[2023-10-13 06:58] LABS: ALANINE AMINOTRANSFERASE 9 U/L (12-78); ALBUMIN 1.3 G/DL (3.4-5.0); ALBUMIN/GLOBULIN RATIO 0.3 (1.1-1.5); ALKALINE PHOSPHATASE 156 IU/L (46-116); ANION GAP 12 (8-16); ASPARTATE AMINO TRANSFERASE 18 U/L (10-37); BILIRUBIN,TOTAL 0.6 MG/DL (0.1-1.0); BLOOD UREA NITROGEN 11 MG/DL (7-18); BUN/CREATININE RATIO 22.9 (10.0-20.0); CHLORIDE 110 MMOL/L (99-107); CREATININE 0.48 MG/DL (0.40-0.90); GLUCOSE 83 MG/DL (70-104); MAGNESIUM 1.9 MG/DL (1.5-2.4); PHOSPHORUS 1.8 MG/DL (2.3-4.5); POTASSIUM 3.6 MMOL/L (3.5-5.1); SODIUM 144 MMOL/L (135-145); TOTAL PROTEIN 5.4 G/DL (6.4-8.2); eCRCL 63 ML/MIN; eGFR > 90 ML/MIN
[2023-10-13] MEDS: cefepime 2g/NS 100ml ADVANTAGE 100 ML IV SCH (08:00)
[2023-10-13] MEDS: metroNIDAZOLE-Flagyl 500mg/NS 100 ML IV SCH (08:00)
[2023-10-13] MEDS ORDERED: fat emulsion 20% inj. 100 ML IV SCH (11:35)
[2023-10-13] MEDS ORDERED: Dextrose 10%-water IV solution 1,000 ML IV PRN (11:50)
[2023-10-13] MEDS: fat emulsion 20% inj. 100 ML IV SCH (14:57)
[2023-10-13] MEDS: diltiazem-NS 100mg/100ml 100 ML IV SCH (17:16)
[2023-10-13] MEDS ORDERED: meperidine/PF 25mg/ml syringe IV PRN ×2 (18:15)
[2023-10-13] MEDS ORDERED: ondansetron/PF 4mg/2ml inj IV PRN (18:15)
[2023-10-13] MEDS ORDERED: proCHLORperazine 10 MG/2 ml inj IV PRN (18:15)
[2023-10-13] MEDS ORDERED: morphine 2 MG/ML inj. syringe IV PRN (18:15)
[2023-10-13] MEDS ORDERED: fentaNYL/PF 50MCG/1 ML 2ML syringe ONE (18:45)
[2023-10-13] MEDS ORDERED: midazolam 1 mg/ML 2ml injection ONE (18:45)
[2023-10-13] MEDS ORDERED: albumin (Human) 5% 250ml 250 ML IV ONE (19:12)
[2023-10-13] MEDS ORDERED: propofol inj 20 ML IV ONE (19:13)
[2023-10-13] MEDS ORDERED: rocuronium 10mg/ml inj IV ONE (19:13)
[2023-10-13] MEDS ORDERED: ceFOXitin 1000 MG inj ONE ×2 (19:16→19:21)
[2023-10-13] MEDS ORDERED: sugammadex 200mg/2ml injection IV ONE (20:12)
[2023-10-13] MEDS ORDERED: meperidine/PF 25mg/ml syringe ONE (20:41)
[2023-10-13] MEDS: meperidine/PF 25mg/ml syringe IV PRN (20:43)
[2023-10-13] MEDS ORDERED: morphine 4 MG/ML inj SYRINge ONE (21:15)
[2023-10-13] MEDS: morphine 4 MG/ML inj SYRINge IV PRN (21:19)
[2023-10-13] MEDS: ringers solution, lacted 1,000 ML IV SCH (21:28)
[2023-10-14] VITALS (24 sets, daily range): BP systolic 97–140; BP diastolic 44–71; PULSE 74–104; RESP 8–23; O2SAT 94–100
[2023-10-14 00:37] LABS: BASOPHILS % (AUTO) 0.1 % (0-1); EOSINOPHILS % (AUTO) 0 % (0-6); HEMATOCRIT 22.6 % (35.0-45.0); HEMOGLOBIN 7.1 g/dl (12.0-16.0); LYMPHOCYTES # (AUTO) 0.2 X10'3 (1.1-4.8); LYMPHOCYTES % (AUTO) 1.1 % (21-51); MEAN CORPUSCULAR HEMOGLOBIN 29.1 PG (27.0-31.0); MEAN CORPUSCULAR HGB CONC 31.7 g/dL (33.0-36.5); MEAN CORPUSCULAR VOLUME 92.1 FL (78-98); MEAN PLATELET VOLUME 6.5 FL (7.4-10.4); MONOCYTES # (AUTO) 0.3 X10'3 (0-0.9); MONOCYTES % (AUTO) 1.6 % (2-12); NEUTROPHILS % (AUTO) 97.2 % (42-75); PLATELET COUNT 350 X10'3 (140-440); RED BLOOD COUNT 2.45 X10'6 (4.20-5.60); RED CELL DISTRIBUTION WIDTH 20.5 % (11.5-14.5); WHITE BLOOD COUNT 16.5 X10'3 (4.5-11.0)
[2023-10-14 00:56] LABS: ALANINE AMINOTRANSFERASE 14 U/L (12-78); ALBUMIN 1.3 G/DL (3.4-5.0); ALBUMIN/GLOBULIN RATIO 0.3 (1.1-1.5); ALKALINE PHOSPHATASE 80 IU/L (46-116); ANION GAP 11 (8-16); ASPARTATE AMINO TRANSFERASE 14 U/L (10-37); BILIRUBIN,TOTAL 0.5 MG/DL (0.1-1.0); BLOOD UREA NITROGEN 8 MG/DL (7-18); BUN/CREATININE RATIO 21.6 (10.0-20.0); CALCIUM 8.3 MG/DL (8.5-10.1); CHLORIDE 111 MMOL/L (99-107); CREATININE 0.37 MG/DL (0.40-0.90); GLUCOSE 96 MG/DL (70-104); MAGNESIUM 1.6 MG/DL (1.5-2.4); PHOSPHORUS 2.6 MG/DL (2.3-4.5); POTASSIUM 3.3 MMOL/L (3.5-5.1); SODIUM 142 MMOL/L (135-145); TOTAL CARBON DIOXIDE 20.1 MMOL/L (24-32); TOTAL PROTEIN 5.1 G/DL (6.4-8.2); eCRCL 81 ML/MIN; eGFR > 90 ML/MIN
[2023-10-14] MEDS: potassium Cl 40MEQ/270ML bag 270 ML IV PRN (01:36)
[2023-10-14 01:37] LABS: ACANTHOCYTES FEW; ANISOCYTOSIS 3+; BURR CELLS 1+; ELLIPTOCYTES FEW; PLATELET ESTIMATE NORMAL
[2023-10-14] MEDS ORDERED: FERR324T4 PO (10:59)
[2023-10-14] MEDS ORDERED: PANT-47 PO (10:59)
[2023-10-14] MEDS ORDERED: MELA1TAB28 PO (10:59)
[2023-10-14] MEDS ORDERED: CHOL400T8 PO (11:00)
[2023-10-14] MEDS: MVI, adult No.4 with vit. K 10 ML in dextrose 5% water 500ml 500 ML IV SCH (12:14)
[2023-10-14 15:27] LABS: ALBUMIN 1.2 G/DL (3.4-5.0); ANION GAP 14 (8-16); BLOOD UREA NITROGEN 8 MG/DL (7-18); BUN/CREATININE RATIO 18.6 (10.0-20.0); CALCIUM 8.4 MG/DL (8.5-10.1); CHLORIDE 109 MMOL/L (99-107); CREATININE 0.43 MG/DL (0.40-0.90); GLUCOSE 139 MG/DL (70-104); POTASSIUM 3.8 MMOL/L (3.5-5.1); SODIUM 143 MMOL/L (135-145); TOTAL CARBON DIOXIDE 20.5 MMOL/L (24-32); eCRCL 70 ML/MIN; eGFR > 90 ML/MIN
[2023-10-14] MEDS: cefepime 2g/NS 100ml ADVANTAGE 100 ML IV SCH (16:48)
[2023-10-14] MEDS: potassium Cl 40MEQ/1/2NS 520ml 520 ML IV ONE (21:17)
[2023-10-15] VITALS (25 sets, daily range): BP systolic 123–165; BP diastolic 63–92; PULSE 89–117; RESP 8–24; O2SAT 96–100
[2023-10-15 04:07] LABS: BASOPHILS % (AUTO) 0.1 % (0-1); EOSINOPHILS % (AUTO) 0 % (0-6); HEMATOCRIT 22.9 % (35.0-45.0); HEMOGLOBIN 7.3 g/dl (12.0-16.0); LYMPHOCYTES # (AUTO) 0.5 X10'3 (1.1-4.8); LYMPHOCYTES % (AUTO) 3.2 % (21-51); MEAN CORPUSCULAR HEMOGLOBIN 29.2 PG (27.0-31.0); MEAN CORPUSCULAR HGB CONC 31.8 g/dL (33.0-36.5); MEAN CORPUSCULAR VOLUME 92.1 FL (78-98); MEAN PLATELET VOLUME 6.6 FL (7.4-10.4); MONOCYTES # (AUTO) 0.8 X10'3 (0-0.9); MONOCYTES % (AUTO) 5.7 % (2-12); NEUTROPHILS # (AUTO) 12.9 X10'3 (1.8-7.7); PLATELET COUNT 366 X10'3 (140-440); RED BLOOD COUNT 2.48 X10'6 (4.20-5.60); RED CELL DISTRIBUTION WIDTH 20.6 % (11.5-14.5); WHITE BLOOD COUNT 14.2 X10'3 (4.5-11.0)
[2023-10-15 04:18] LABS: ALANINE AMINOTRANSFERASE 12 U/L (12-78); ALBUMIN 1.1 G/DL (3.4-5.0); ALBUMIN/GLOBULIN RATIO 0.3 (1.1-1.5); ALKALINE PHOSPHATASE 71 IU/L (46-116); ANION GAP 1 (8-16); ASPARTATE AMINO TRANSFERASE 13 U/L (10-37); BILIRUBIN,TOTAL 0.3 MG/DL (0.1-1.0); BLOOD UREA NITROGEN 13 MG/DL (7-18); CHLORIDE 114 MMOL/L (99-107); CREATININE 0.52 MG/DL (0.40-0.90); GLUCOSE 169 MG/DL (70-104); MAGNESIUM 1.6 MG/DL (1.5-2.4); PHOSPHORUS 2.2 MG/DL (2.3-4.5); POTASSIUM 4.1 MMOL/L (3.5-5.1); SODIUM 141 MMOL/L (135-145); TOTAL CARBON DIOXIDE 26.2 MMOL/L (24-32); TOTAL PROTEIN 4.3 G/DL (6.4-8.2); eCRCL 58 ML/MIN; eGFR > 90 ML/MIN
[2023-10-15] MEDS: fat emulsion 20% inj. 100 ML IV SCH (12:08)
[2023-10-15] MEDS: SINCALIDE IV ONE (12:30)
[2023-10-15] MEDS: NORMAL SALINE IV ONE (12:30)
[2023-10-15] MEDS: potassium phosphate inj 15 MMOL in NS 250ml IV soln 250 ML IV ONE (13:55)
[2023-10-15] MEDS: IOHEXOL 12MG/ML oral solution 500 ML BOTTLE PO ONE (14:26)
[2023-10-15] MEDS ORDERED: diatr meglu/diatrizoate 30ml oral sol.-(3 dose) bottle PO SCH (15:00)
[2023-10-15] MEDS ORDERED: sevoflurane 250ml liquid IH ONE (19:23)
[2023-10-15] MEDS ORDERED: midazolam 1 mg/ML 2ml injection ONE (19:25)
[2023-10-15] MEDS ORDERED: fentaNYL /PF 50mcg/ml 5ml ampule ONE (19:26)
[2023-10-15] MEDS ORDERED: labetalol 20mg/4ml (5mg/ml) syringe IV PRN (19:30)
[2023-10-15] MEDS ORDERED: hydrALAZINE 20mg/ml inj. IV PRN (19:30)
[2023-10-15] MEDS ORDERED: morphine 4 MG/ML inj SYRINge IV PRN (19:30)
[2023-10-15] MEDS ORDERED: proCHLORperazine 10 MG/2 ml inj IV PRN (19:30)
[2023-10-15] MEDS ORDERED: meperidine/PF 25mg/ml syringe IV PRN ×3 (19:30)
[2023-10-15] MEDS ORDERED: ondansetron/PF 4mg/2ml inj IV PRN (19:30)
[2023-10-15] MEDS ORDERED: morphine 2 MG/ML inj. syringe IV PRN (19:30)
[2023-10-15] MEDS ORDERED: ePHEDrine 50MG/ML INJ. ONE (20:15)
[2023-10-15] MEDS ORDERED: 0.9 % SODIUM CHLORIDE 10 ML VIAL ONE (20:15)
[2023-10-15] MEDS ORDERED: rocuronium 10mg/ml inj IV ONE ×3 (20:15→23:22)
[2023-10-15] MEDS ORDERED: LIDOcaine 2% (20mg/ml) 5ml vial ONE (20:15)
[2023-10-15] MEDS ORDERED: propofol inj 20 ML IV ONE (20:15)
[2023-10-15] MEDS ORDERED: dexamethasone sod phosphate 4mg/ml inj. ONE (20:22)
[2023-10-15] MEDS ORDERED: ondansetron/PF 4mg/2ml inj ONE (20:22)
[2023-10-15] MEDS ORDERED: albumin (Human) 5% 250ml 250 ML IV ONE ×2 (20:51)
[2023-10-15] MEDS ORDERED: sugammadex 200mg/2ml injection IV ONE ×2 (22:04)
[2023-10-15] MEDS ORDERED: fentaNYL/PF 50MCG/1 ML 2ML syringe IV PRN (22:05)
[2023-10-15] MEDS ORDERED: midazolam 100mg in NS 100ml 100 ML IV SCH (22:05)
[2023-10-16] VITALS (33 sets, daily range): BP systolic 120–178; BP diastolic 61–106; PULSE 83–137; RESP 7–22; O2SAT 97–100
[2023-10-16 00:05] LABS: ABG BASE EXCESS -0.1 mmol/L (-2.0-3.0); ABG HCO3 24.1 mmol/L (21.0-28.0); ABG OXYGEN SATURATION 99.8 % (94.0-98.0); ABG PCO2 (T) 37.9 mmHg (32.0-45.0); ABG PH (T) 7.422 (7.350-7.450); ABG PO2 (T) 289.9 mmHg (83.0-108.0); ALLEN'S TEST Modified; FCOHb 0.7 % (0.5-1.5); FHHb 0.2 % (0.0-5.0); FMetHb 0.3 % (0.0-1.5); FO2Hb 98.8 % (94.0-98.0); MODE SIMV; PEEP 5 cm H2O; RESPIRATORY RATE 12 b/min; TIDAL VOLUME 400 mL; TOTAL HEMOGLOBIN 11.5 G/dl (12.0-16.0)
[2023-10-16] MEDS: FENTANYL-0.9 % NACL/PF 100 ML IV SCH (00:11)
[2023-10-16] MEDS: propofol 1000mg/100ml bottle 100 ML IV SCH ×2 (00:17→00:21)
[2023-10-16] MEDS: BUPIVAcaine 2.5mg/ml inj 50ml vial (contains preservative) ONE (00:24)
[2023-10-16] MEDS: midazolam 1 mg/ML 2ml injection IV ONE (00:54)
[2023-10-16] MEDS: propofol 1000mg/100ml bottle 100 ML IV ONE (00:56)
[2023-10-16 01:04] LABS: BASOPHILS % (AUTO) 0.1 % (0-1); EOSINOPHILS % (AUTO) 0 % (0-6); HEMATOCRIT 34.1 % (35.0-45.0); HEMOGLOBIN 11.3 g/dl (12.0-16.0); LYMPHOCYTES # (AUTO) 0.2 X10'3 (1.1-4.8); LYMPHOCYTES % (AUTO) 1.6 % (21-51); MEAN CORPUSCULAR HEMOGLOBIN 28.8 PG (27.0-31.0); MEAN CORPUSCULAR HGB CONC 33.2 g/dL (33.0-36.5); MEAN CORPUSCULAR VOLUME 86.7 FL (78-98); MEAN PLATELET VOLUME 6.7 FL (7.4-10.4); MONOCYTES # (AUTO) 0.4 X10'3 (0-0.9); MONOCYTES % (AUTO) 2.9 % (2-12); NEUTROPHILS # (AUTO) 14.5 X10'3 (1.8-7.7); NEUTROPHILS % (AUTO) 95.4 % (42-75); PLATELET COUNT 326 X10'3 (140-440); RED BLOOD COUNT 3.94 X10'6 (4.20-5.60); RED CELL DISTRIBUTION WIDTH 19.2 % (11.5-14.5); WHITE BLOOD COUNT 15.2 X10'3 (4.5-11.0)
[2023-10-16 01:14] LABS: ALANINE AMINOTRANSFERASE 14 U/L (12-78); ALBUMIN/GLOBULIN RATIO 0.7 (1.1-1.5); ALKALINE PHOSPHATASE 84 IU/L (46-116); ANION GAP 4 (8-16); ASPARTATE AMINO TRANSFERASE 23 U/L (10-37); BILIRUBIN,TOTAL 1.5 MG/DL (0.1-1.0); BLOOD UREA NITROGEN 11 MG/DL (7-18); BUN/CREATININE RATIO 28.9 (10.0-20.0); CALCIUM 8.1 MG/DL (8.5-10.1); CHLORIDE 106 MMOL/L (99-107); CREATININE 0.38 MG/DL (0.40-0.90); GLUCOSE 197 MG/DL (70-104); MAGNESIUM 1.6 MG/DL (1.5-2.4); PHOSPHORUS 3.1 MG/DL (2.3-4.5); POTASSIUM 3.6 MMOL/L (3.5-5.1); SODIUM 137 MMOL/L (135-145); TOTAL CARBON DIOXIDE 27.3 MMOL/L (24-32); TOTAL PROTEIN 4.9 G/DL (6.4-8.2); TRIGLYCERIDES 67 MG/DL (20-135); eCRCL 79 ML/MIN; eGFR > 90 ML/MIN
[2023-10-16] MEDS: acetaminophen 1,000mg/100ml IV 100 ML IV ONE (01:48)
[2023-10-16] MEDS: ringers solution, lacted 1,000 ML IV SCH (01:49)
[2023-10-16 03:54] LABS: ABG BASE EXCESS 0.5 mmol/L (-2.0-3.0); ABG OXYGEN SATURATION 98.9 % (94.0-98.0); ABG PCO2 (T) 34.6 mmHg (32.0-45.0); ABG PH (T) 7.459 (7.350-7.450); ABG PO2 (T) 126.7 mmHg (83.0-108.0); ALLEN'S TEST Modified; FHHb 1.1 % (0.0-5.0); FMetHb 0.3 % (0.0-1.5); FO2Hb 97.6 % (94.0-98.0); MODE SIMV; PEEP 5 cm H2O; RESPIRATORY RATE 12 b/min; TIDAL VOLUME 400 mL; TOTAL HEMOGLOBIN 11.5 G/dl (12.0-16.0)
[2023-10-16] MEDS: micafungin inj 100 MG in normal saline 100ml IV soln 100 ML IV SCH (10:26)
[2023-10-16] MEDS ORDERED: naloxone 0.4 mg/ml inj IV PRN (17:55)
[2023-10-16] MEDS: HYDROmorph/NS 0.2 mg/ml PCA 100 ML IV SCH (18:59)
[2023-10-17] VITALS (24 sets, daily range): BP systolic 114–143; BP diastolic 66–85; PULSE 97–113; RESP 7–19; O2SAT 92–99
[2023-10-17] MEDS ORDERED: mineral oil/petrolatum ophthal oint EACHEYE SCH (02:00)
[2023-10-17 04:29] LABS: BASOPHILS % (AUTO) 0.2 % (0-1); EOSINOPHILS # (AUTO) 0.1 X10'3 (0-0.9); EOSINOPHILS % (AUTO) 0.7 % (0-6); HEMATOCRIT 29.8 % (35.0-45.0); HEMOGLOBIN 9.8 g/dl (12.0-16.0); LYMPHOCYTES # (AUTO) 0.7 X10'3 (1.1-4.8); LYMPHOCYTES % (AUTO) 5.1 % (21-51); MEAN CORPUSCULAR HEMOGLOBIN 28.7 PG (27.0-31.0); MEAN CORPUSCULAR HGB CONC 32.7 g/dL (33.0-36.5); MEAN CORPUSCULAR VOLUME 87.6 FL (78-98); MONOCYTES # (AUTO) 0.9 X10'3 (0-0.9); MONOCYTES % (AUTO) 7.1 % (2-12); NEUTROPHILS # (AUTO) 11.4 X10'3 (1.8-7.7); NEUTROPHILS % (AUTO) 86.9 % (42-75); PLATELET COUNT 315 X10'3 (140-440); RED BLOOD COUNT 3.41 X10'6 (4.20-5.60); RED CELL DISTRIBUTION WIDTH 19.6 % (11.5-14.5); WHITE BLOOD COUNT 13.1 X10'3 (4.5-11.0)
[2023-10-17 04:42] LABS: ALANINE AMINOTRANSFERASE 11 U/L (12-78); ALBUMIN 1.4 G/DL (3.4-5.0); ALBUMIN/GLOBULIN RATIO 0.4 (1.1-1.5); ALKALINE PHOSPHATASE 63 IU/L (46-116); ANION GAP 2 (8-16); ASPARTATE AMINO TRANSFERASE 14 U/L (10-37); BILIRUBIN,TOTAL 0.3 MG/DL (0.1-1.0); BLOOD UREA NITROGEN 17 MG/DL (7-18); CALCIUM 8.1 MG/DL (8.5-10.1); CHLORIDE 107 MMOL/L (99-107); CREATININE 0.27 MG/DL (0.40-0.90); GLUCOSE 118 MG/DL (70-104); MAGNESIUM 1.8 MG/DL (1.5-2.4); PHOSPHORUS 1.9 MG/DL (2.3-4.5); POTASSIUM 3.8 MMOL/L (3.5-5.1); SODIUM 139 MMOL/L (135-145); TOTAL CARBON DIOXIDE 30.3 MMOL/L (24-32); TOTAL PROTEIN 4.7 G/DL (6.4-8.2); eCRCL 134 ML/MIN; eGFR > 90 ML/MIN
[2023-10-17] MEDS: MVI, adult No.4 with vit. K 10 ML in dextrose 5% water 500ml 500 ML IV SCH (08:40)
[2023-10-17] MEDS ORDERED: sodium phosphate inj. 30 MMOL in dextrose 5%-water 250 ML IV PRN (09:15)
[2023-10-17] MEDS ORDERED: Neutra Phos packet PO PRN (09:15)
[2023-10-17] MEDS: sodium phosphate inj. 15 MMOL in dextrose 5%-water 250 ML IV PRN (13:10)
[2023-10-17] MEDS ORDERED: potassium CL 10mEq/100ml bag 100 ML IV SCH (13:25)
[2023-10-17] MEDS: Potassium Cl 40 MEQ in normal saline IV soln 270 ML IV ONE (13:38)
[2023-10-17] MEDS: tPA-cathflo 2 MG/2 ml IV flush IVF ONE (17:18)
[2023-10-18] VITALS (24 sets, daily range): BP systolic 108–147; BP diastolic 61–91; PULSE 91–106; RESP 8–20; O2SAT 90–99
[2023-10-18 04:28] LABS: ALANINE AMINOTRANSFERASE 8 U/L (12-78); ALBUMIN 1.2 G/DL (3.4-5.0); ALBUMIN/GLOBULIN RATIO 0.4 (1.1-1.5); ALKALINE PHOSPHATASE 60 IU/L (46-116); ANION GAP 1 (8-16); ASPARTATE AMINO TRANSFERASE 17 U/L (10-37); BILIRUBIN,TOTAL 0.2 MG/DL (0.1-1.0); BLOOD UREA NITROGEN 14 MG/DL (7-18); CALCIUM 8.3 MG/DL (8.5-10.1); CHLORIDE 106 MMOL/L (99-107); CREATININE 0.28 MG/DL (0.40-0.90); GLUCOSE 121 MG/DL (70-104); PHOSPHORUS 1.9 MG/DL (2.3-4.5); POTASSIUM 3.8 MMOL/L (3.5-5.1); SODIUM 140 MMOL/L (135-145); TOTAL CARBON DIOXIDE 33.4 MMOL/L (24-32); TOTAL PROTEIN 4.5 G/DL (6.4-8.2); TRIGLYCERIDES 71 MG/DL (20-135); eCRCL 129 ML/MIN; eGFR > 90 ML/MIN
[2023-10-18 04:46] LABS: BASOPHILS % (AUTO) 0.1 % (0-1); EOSINOPHILS # (AUTO) 0.3 X10'3 (0-0.9); EOSINOPHILS % (AUTO) 2.8 % (0-6); HEMATOCRIT 27.5 % (35.0-45.0); HEMOGLOBIN 9.1 g/dl (12.0-16.0); LYMPHOCYTES # (AUTO) 0.7 X10'3 (1.1-4.8); LYMPHOCYTES % (AUTO) 6.8 % (21-51); MAGNESIUM 1.7 MG/DL (1.5-2.4); MEAN CORPUSCULAR HEMOGLOBIN 29.2 PG (27.0-31.0); MEAN CORPUSCULAR HGB CONC 32.9 g/dL (33.0-36.5); MEAN CORPUSCULAR VOLUME 88.7 FL (78-98); MEAN PLATELET VOLUME 6.8 FL (7.4-10.4); MONOCYTES # (AUTO) 0.8 X10'3 (0-0.9); MONOCYTES % (AUTO) 7.8 % (2-12); NEUTROPHILS # (AUTO) 8.8 X10'3 (1.8-7.7); NEUTROPHILS % (AUTO) 82.5 % (42-75); PLATELET COUNT 310 X10'3 (140-440); RED BLOOD COUNT 3.11 X10'6 (4.20-5.60); RED CELL DISTRIBUTION WIDTH 19.3 % (11.5-14.5); WHITE BLOOD COUNT 10.7 X10'3 (4.5-11.0)
[2023-10-18 06:14] LABS: ANISOCYTOSIS 2+; PLATELET ESTIMATE NORMAL
[2023-10-18 06:18] LABS: ACANTHOCYTES FEW; ELLIPTOCYTES FEW; TARGET CELLS FEW
[2023-10-18] MEDS ORDERED: potassium CL 10mEq/100ml bag 100 ML IV SCH (09:30)
[2023-10-18] MEDS: Potassium Cl 40 MEQ in normal saline IV soln 270 ML IV ONE (09:51)
[2023-10-18] MEDS: metoclopramide 5 mg/ml inj IV SCH (19:45)
[2023-10-19] VITALS (21 sets, daily range): BP systolic 102–141; BP diastolic 56–82; PULSE 92–107; RESP 8–19; TEMP 98–99.9; O2SAT 93–97
[2023-10-19 04:23] LABS: ALANINE AMINOTRANSFERASE 9 U/L (12-78); ALBUMIN 1.3 G/DL (3.4-5.0); ALBUMIN/GLOBULIN RATIO 0.4 (1.1-1.5); ALKALINE PHOSPHATASE 66 IU/L (46-116); ANION GAP 1 (8-16); ASPARTATE AMINO TRANSFERASE 15 U/L (10-37); BILIRUBIN,TOTAL 0.2 MG/DL (0.1-1.0); BLOOD UREA NITROGEN 13 MG/DL (7-18); BUN/CREATININE RATIO 43.3 (10.0-20.0); CALCIUM 8.5 MG/DL (8.5-10.1); CHLORIDE 105 MMOL/L (99-107); GLUCOSE 109 MG/DL (70-104); PHOSPHORUS 2.4 MG/DL (2.3-4.5); SODIUM 140 MMOL/L (135-145); TOTAL CARBON DIOXIDE 34.1 MMOL/L (24-32); TOTAL PROTEIN 4.9 G/DL (6.4-8.2); eCRCL 120 ML/MIN; eGFR > 90 ML/MIN
[2023-10-19 04:53] LABS: BASOPHILS % (AUTO) 0.2 % (0-1); EOSINOPHILS # (AUTO) 0.3 X10'3 (0-0.9); EOSINOPHILS % (AUTO) 2.7 % (0-6); HEMATOCRIT 27.1 % (35.0-45.0); HEMOGLOBIN 8.9 g/dl (12.0-16.0); LYMPHOCYTES # (AUTO) 0.7 X10'3 (1.1-4.8); MEAN CORPUSCULAR HEMOGLOBIN 29.4 PG (27.0-31.0); MEAN CORPUSCULAR HGB CONC 32.9 g/dL (33.0-36.5); MEAN CORPUSCULAR VOLUME 89.5 FL (78-98); MEAN PLATELET VOLUME 6.7 FL (7.4-10.4); MONOCYTES # (AUTO) 0.8 X10'3 (0-0.9); MONOCYTES % (AUTO) 7.1 % (2-12); PLATELET COUNT 346 X10'3 (140-440); RED BLOOD COUNT 3.03 X10'6 (4.20-5.60); WHITE BLOOD COUNT 11.9 X10'3 (4.5-11.0)
[2023-10-19 05:06] LABS: MAGNESIUM 1.9 MG/DL (1.5-2.4)
[2023-10-19 05:43] LABS: PLATELET ESTIMATE NORMAL
[2023-10-19 05:44] LABS: ANISOCYTOSIS 2+; POLYCHROMASIA FEW
[2023-10-19 05:45] LABS: ACANTHOCYTES FEW
[2023-10-19] MEDS: PCA WASTE DOCUMENTATION 1 MG ML MC PRN (08:52)
[2023-10-19] MEDS: ZINC/COPPER/MANGANESE/SELENIUM 0.5 ML, chromic chloride inj. 5 MCG in AA 5%/CALCIUM/LYT... IV SCH (12:17)
[2023-10-19] MEDS: enoxaparin 40mg/0.4ml syringe SUBCUT SCH (20:00)
[2023-10-20] VITALS (7 sets, daily range): BP systolic 113–139; BP diastolic 61–78; PULSE 100–120; RESP 10–20; TEMP 97.4–99.2; O2SAT 94–97
[2023-10-20 06:17] LABS: BASOPHILS % (AUTO) 0.4 % (0-1); EOSINOPHILS # (AUTO) 0.2 X10'3 (0-0.9); EOSINOPHILS % (AUTO) 2.4 % (0-6); HEMOGLOBIN 8.3 g/dl (12.0-16.0); LYMPHOCYTES # (AUTO) 0.6 X10'3 (1.1-4.8); LYMPHOCYTES % (AUTO) 6.2 % (21-51); MEAN CORPUSCULAR HEMOGLOBIN 28.9 PG (27.0-31.0); MEAN CORPUSCULAR HGB CONC 31.9 g/dL (33.0-36.5); MEAN CORPUSCULAR VOLUME 90.7 FL (78-98); MEAN PLATELET VOLUME 6.6 FL (7.4-10.4); MONOCYTES # (AUTO) 0.8 X10'3 (0-0.9); MONOCYTES % (AUTO) 7.5 % (2-12); NEUTROPHILS # (AUTO) 8.6 X10'3 (1.8-7.7); NEUTROPHILS % (AUTO) 83.5 % (42-75); PLATELET COUNT 360 X10'3 (140-440); RED BLOOD COUNT 2.87 X10'6 (4.20-5.60); RED CELL DISTRIBUTION WIDTH 19.2 % (11.5-14.5); WHITE BLOOD COUNT 10.3 X10'3 (4.5-11.0)
[2023-10-20] MEDS: metoprolol succinate 25mg (24-HOUR) SR. Tablet PO SCH (08:00)
[2023-10-20] MEDS: NORMAL SALINE IV ONE (10:50)
[2023-10-20] MEDS: SINCALIDE IV ONE (10:50)
[2023-10-20 13:02] LABS: ALANINE AMINOTRANSFERASE 7 U/L (12-78); ALBUMIN 1.2 G/DL (3.4-5.0); ALBUMIN/GLOBULIN RATIO 0.4 (1.1-1.5); ALKALINE PHOSPHATASE 56 IU/L (46-116); ANION GAP 5 (8-16); ASPARTATE AMINO TRANSFERASE 14 U/L (10-37); BILIRUBIN,TOTAL 0.2 MG/DL (0.1-1.0); BLOOD UREA NITROGEN 11 MG/DL (7-18); CALCIUM 7.9 MG/DL (8.5-10.1); CHLORIDE 108 MMOL/L (99-107); CREATININE 0.25 MG/DL (0.40-0.90); GLUCOSE 108 MG/DL (70-104); MAGNESIUM 1.8 MG/DL (1.5-2.4); PHOSPHORUS 2.1 MG/DL (2.3-4.5); POTASSIUM 3.2 MMOL/L (3.5-5.1); PREALBUMIN 15.2 MG/DL (19-36); SODIUM 144 MMOL/L (135-145); TOTAL CARBON DIOXIDE 30.9 MMOL/L (24-32); TOTAL PROTEIN 4.5 G/DL (6.4-8.2); eCRCL 144 ML/MIN; eGFR > 90 ML/MIN
[2023-10-20] MEDS: potassium Cl 40MEQ/1/2NS 520ml 520 ML IV PRN (20:23)
[2023-10-20] MEDS: potassium Cl 40MEQ/270ML bag 270 ML IV ONE (20:56)
[2023-10-20] MEDS: sodium phosphate inj. 15 MMOL in dextrose 5%-water 250 ML IV ONE (22:56)
[2023-10-21] VITALS (8 sets, daily range): BP systolic 121–140; BP diastolic 69–87; PULSE 89–104; RESP 12–17; TEMP 96.9–98.1; O2SAT 90–98
[2023-10-21 05:05] LABS: ALANINE AMINOTRANSFERASE 8 U/L (12-78); ALBUMIN 1.1 G/DL (3.4-5.0); ALBUMIN/GLOBULIN RATIO 0.3 (1.1-1.5); ALKALINE PHOSPHATASE 61 IU/L (46-116); ANION GAP 3 (8-16); ASPARTATE AMINO TRANSFERASE 16 U/L (10-37); BILIRUBIN,TOTAL 0.2 MG/DL (0.1-1.0); BLOOD UREA NITROGEN 12 MG/DL (7-18); CALCIUM 8.2 MG/DL (8.5-10.1); CHLORIDE 106 MMOL/L (99-107); GLUCOSE 158 MG/DL (70-104); PHOSPHORUS 2.7 MG/DL (2.3-4.5); POTASSIUM 3.6 MMOL/L (3.5-5.1); SODIUM 140 MMOL/L (135-145); TOTAL CARBON DIOXIDE 31.5 MMOL/L (24-32); TOTAL PROTEIN 4.7 G/DL (6.4-8.2); TRIGLYCERIDES 54 MG/DL (20-135); eCRCL 120 ML/MIN; eGFR > 90 ML/MIN
[2023-10-22] VITALS (8 sets, daily range): BP systolic 125–148; BP diastolic 67–80; PULSE 91–101; RESP 14–19; TEMP 97.5–97.9; O2SAT 94–99
[2023-10-22 06:54] LABS: ALBUMIN 1.1 G/DL (3.4-5.0); ALBUMIN/GLOBULIN RATIO 0.3 (1.1-1.5); ALKALINE PHOSPHATASE 63 IU/L (46-116); ANION GAP 1 (8-16); ASPARTATE AMINO TRANSFERASE 12 U/L (10-37); BILIRUBIN,TOTAL 0.2 MG/DL (0.1-1.0); BLOOD UREA NITROGEN 12 MG/DL (7-18); BUN/CREATININE RATIO 44.4 (10.0-20.0); CALCIUM 8.1 MG/DL (8.5-10.1); CHLORIDE 108 MMOL/L (99-107); CREATININE 0.27 MG/DL (0.40-0.90); GLUCOSE 115 MG/DL (70-104); PHOSPHORUS 1.9 MG/DL (2.3-4.5); POTASSIUM 3.3 MMOL/L (3.5-5.1); SODIUM 140 MMOL/L (135-145); TOTAL CARBON DIOXIDE 30.8 MMOL/L (24-32); TOTAL PROTEIN 4.7 G/DL (6.4-8.2); eCRCL 134 ML/MIN; eGFR > 90 ML/MIN
[2023-10-22 07:13] LABS: ALANINE AMINOTRANSFERASE < 6 U/L (12-78)
[2023-10-22 10:50] LABS: BASOPHILS % (AUTO) 0.5 % (0-1); EOSINOPHILS # (AUTO) 0.2 X10'3 (0-0.9); EOSINOPHILS % (AUTO) 1.8 % (0-6); HEMATOCRIT 25.1 % (35.0-45.0); HEMOGLOBIN 8.3 g/dl (12.0-16.0); LYMPHOCYTES # (AUTO) 0.5 X10'3 (1.1-4.8); LYMPHOCYTES % (AUTO) 5.3 % (21-51); MEAN CORPUSCULAR HEMOGLOBIN 30.1 PG (27.0-31.0); MEAN CORPUSCULAR HGB CONC 32.9 g/dL (33.0-36.5); MEAN CORPUSCULAR VOLUME 91.6 FL (78-98); MEAN PLATELET VOLUME 6.8 FL (7.4-10.4); MONOCYTES # (AUTO) 0.9 X10'3 (0-0.9); MONOCYTES % (AUTO) 8.5 % (2-12); NEUTROPHILS # (AUTO) 8.7 X10'3 (1.8-7.7); NEUTROPHILS % (AUTO) 83.9 % (42-75); PLATELET COUNT 377 X10'3 (140-440); RED BLOOD COUNT 2.74 X10'6 (4.20-5.60); WHITE BLOOD COUNT 10.4 X10'3 (4.5-11.0)
[2023-10-22 11:00] LABS: ALBUMIN 1.1 G/DL (3.4-5.0); ALBUMIN/GLOBULIN RATIO 0.3 (1.1-1.5); ALKALINE PHOSPHATASE 67 IU/L (46-116); ANION GAP 2 (8-16); ASPARTATE AMINO TRANSFERASE 15 U/L (10-37); BILIRUBIN,TOTAL 0.2 MG/DL (0.1-1.0); BLOOD UREA NITROGEN 13 MG/DL (7-18); BUN/CREATININE RATIO 43.3 (10.0-20.0); CALCIUM 8.1 MG/DL (8.5-10.1); CHLORIDE 107 MMOL/L (99-107); GLUCOSE 102 MG/DL (70-104); POTASSIUM 3.8 MMOL/L (3.5-5.1); SODIUM 138 MMOL/L (135-145); TOTAL CARBON DIOXIDE 29.1 MMOL/L (24-32); eCRCL 120 ML/MIN; eGFR > 90 ML/MIN
[2023-10-22 11:06] LABS: ALANINE AMINOTRANSFERASE < 6 U/L (12-78)
[2023-10-23] VITALS (7 sets, daily range): BP systolic 126–163; BP diastolic 20–75; PULSE 99–111; RESP 14–23; TEMP 96.8–98.1; O2SAT 96–98
[2023-10-23 05:11] LABS: MAGNESIUM 1.8 MG/DL (1.5-2.4); PREALBUMIN 14.5 MG/DL (19-36)
[2023-10-23 10:55] LABS: BASOPHILS # (AUTO) 0.1 X10'3 (0-0.2); BASOPHILS % (AUTO) 0.7 % (0-1); EOSINOPHILS # (AUTO) 0.2 X10'3 (0-0.9); EOSINOPHILS % (AUTO) 2.6 % (0-6); HEMATOCRIT 24.2 % (35.0-45.0); HEMOGLOBIN 7.7 g/dl (12.0-16.0); LYMPHOCYTES # (AUTO) 0.6 X10'3 (1.1-4.8); LYMPHOCYTES % (AUTO) 7.6 % (21-51); MEAN CORPUSCULAR HEMOGLOBIN 29.2 PG (27.0-31.0); MEAN CORPUSCULAR HGB CONC 31.8 g/dL (33.0-36.5); MEAN CORPUSCULAR VOLUME 91.8 FL (78-98); MEAN PLATELET VOLUME 6.7 FL (7.4-10.4); MONOCYTES # (AUTO) 0.6 X10'3 (0-0.9); MONOCYTES % (AUTO) 8.5 % (2-12); NEUTROPHILS # (AUTO) 5.9 X10'3 (1.8-7.7); NEUTROPHILS % (AUTO) 80.6 % (42-75); PLATELET COUNT 339 X10'3 (140-440); RED BLOOD COUNT 2.64 X10'6 (4.20-5.60); RED CELL DISTRIBUTION WIDTH 18.8 % (11.5-14.5); WHITE BLOOD COUNT 7.4 X10'3 (4.5-11.0)
[2023-10-23 11:17] LABS: ALANINE AMINOTRANSFERASE < 6 U/L (12-78); ALBUMIN 1.1 G/DL (3.4-5.0); ALBUMIN/GLOBULIN RATIO 0.3 (1.1-1.5); ALKALINE PHOSPHATASE 76 IU/L (46-116); ANION GAP -1 (8-16); ASPARTATE AMINO TRANSFERASE 14 U/L (10-37); BILIRUBIN,TOTAL 0.2 MG/DL (0.1-1.0); BLOOD UREA NITROGEN 11 MG/DL (7-18); BUN/CREATININE RATIO 35.5 (10.0-20.0); CALCIUM 8.1 MG/DL (8.5-10.1); CHLORIDE 109 MMOL/L (99-107); CREATININE 0.31 MG/DL (0.40-0.90); GLUCOSE 95 MG/DL (70-104); SODIUM 139 MMOL/L (135-145); TOTAL CARBON DIOXIDE 30.7 MMOL/L (24-32); TOTAL PROTEIN 4.9 G/DL (6.4-8.2); eCRCL 116 ML/MIN; eGFR > 90 ML/MIN
[2023-10-24] VITALS (10 sets, daily range): BP systolic 125–170; BP diastolic 68–98; PULSE 101–117; RESP 11–25; TEMP 97.1–99; O2SAT 92–98
[2023-10-24] MEDS ORDERED: magnesium sulf-water 4G/100mL 100 ML IV PRN (08:20)
[2023-10-24] MEDS ORDERED: magnesium sulf-water 2g/50mL 50 ML IV PRN (08:20)
[2023-10-24] MEDS ORDERED: potassium Cl 20 mEq SR tablet PO PRN ×2 (08:20)
[2023-10-24] MEDS ORDERED: magnesium Cl slow-release 64mg tablet PO PRN (08:20)
[2023-10-24 09:07] LABS: BASOPHILS # (AUTO) 0.1 X10'3 (0-0.2); BASOPHILS % (AUTO) 0.8 % (0-1); EOSINOPHILS # (AUTO) 0.2 X10'3 (0-0.9); HEMATOCRIT 23.3 % (35.0-45.0); HEMOGLOBIN 7.5 g/dl (12.0-16.0); LYMPHOCYTES # (AUTO) 0.5 X10'3 (1.1-4.8); LYMPHOCYTES % (AUTO) 6.8 % (21-51); MEAN CORPUSCULAR HEMOGLOBIN 29.5 PG (27.0-31.0); MEAN CORPUSCULAR HGB CONC 32.4 g/dL (33.0-36.5); MEAN CORPUSCULAR VOLUME 91.2 FL (78-98); MEAN PLATELET VOLUME 6.6 FL (7.4-10.4); MONOCYTES # (AUTO) 0.5 X10'3 (0-0.9); MONOCYTES % (AUTO) 6.3 % (2-12); NEUTROPHILS # (AUTO) 6.5 X10'3 (1.8-7.7); NEUTROPHILS % (AUTO) 84.1 % (42-75); PLATELET COUNT 347 X10'3 (140-440); RED BLOOD COUNT 2.55 X10'6 (4.20-5.60); RED CELL DISTRIBUTION WIDTH 18.5 % (11.5-14.5); WHITE BLOOD COUNT 7.8 X10'3 (4.5-11.0)
[2023-10-24 09:20] LABS: ALBUMIN 1.1 G/DL (3.4-5.0); ALBUMIN/GLOBULIN RATIO 0.3 (1.1-1.5); ALKALINE PHOSPHATASE 90 IU/L (46-116); ANION GAP 1 (8-16); ASPARTATE AMINO TRANSFERASE 14 U/L (10-37); BILIRUBIN,TOTAL 0.2 MG/DL (0.1-1.0); BLOOD UREA NITROGEN 10 MG/DL (7-18); BUN/CREATININE RATIO 32.3 (10.0-20.0); CALCIUM 8.3 MG/DL (8.5-10.1); CHLORIDE 108 MMOL/L (99-107); CREATININE 0.31 MG/DL (0.40-0.90); GLUCOSE 126 MG/DL (70-104); MAGNESIUM 1.8 MG/DL (1.5-2.4); PHOSPHORUS 2.2 MG/DL (2.3-4.5); POTASSIUM 3.4 MMOL/L (3.5-5.1); SODIUM 140 MMOL/L (135-145); TOTAL CARBON DIOXIDE 30.7 MMOL/L (24-32); eCRCL 116 ML/MIN; eGFR > 90 ML/MIN
[2023-10-24 09:22] LABS: ALANINE AMINOTRANSFERASE < 6 U/L (12-78)
[2023-10-24] MEDS: potassium Cl 40MEQ/1/2NS 520ml 520 ML IV PRN (13:47)
[2023-10-24] MEDS: furosemide 20 MG/2 ML vial IV SCH (14:27)
[2023-10-24 16:16] LABS: OCCULT BLOOD STOOL POSITIVE (Neg)
[2023-10-24] MEDS: labetalol 20mg/4ml (5mg/ml) syringe IV ONE (16:17)
[2023-10-24 18:35] LABS: ABG BASE EXCESS 2.5 mmol/L (-2.0-3.0); ABG HCO3 24.6 mmol/L (21.0-28.0); ABG OXYGEN SATURATION 90.3 % (94.0-98.0); ABG PH (T) 7.547 (7.350-7.450); ABG PO2 (T) 53.6 mmHg (83.0-108.0); ALLEN'S TEST POSITIVE; FCOHb 0.1 % (0.5-1.5); FHHb 9.7 % (0.0-5.0); FMetHb 0.3 % (0.0-1.5); FO2Hb 89.9 % (94.0-98.0); MODE ROOM AIR; PATIENT TEMPERATURE 36.9; TOTAL HEMOGLOBIN 9.1 G/dl (12.0-16.0)
[2023-10-24] MEDS: albumin (Human) 5% 250ml 250 ML IV ONE (18:48)
[2023-10-25] VITALS (7 sets, daily range): BP systolic 130–181; BP diastolic 77–97; PULSE 97–108; RESP 18–24; TEMP 97.3–98.3; O2SAT 94–99
[2023-10-25 05:04] LABS: ALBUMIN 1.4 G/DL (3.4-5.0); ANION GAP 5 (8-16); BLOOD UREA NITROGEN 9 MG/DL (7-18); BUN/CREATININE RATIO 34.6 (10.0-20.0); CHLORIDE 106 MMOL/L (99-107); CREATININE 0.26 MG/DL (0.40-0.90); GLUCOSE 136 MG/DL (70-104); SODIUM 139 MMOL/L (135-145); TOTAL CARBON DIOXIDE 28.2 MMOL/L (24-32); eCRCL 139 ML/MIN; eGFR > 90 ML/MIN
[2023-10-25 05:05] LABS: INR 1.2 INR; PROTHROMBIN TIME 12.4 SECONDS (9.0-12.0)
[2023-10-25 09:34] LABS: MAGNESIUM 1.5 MG/DL (1.5-2.4)
[2023-10-25 11:58] LABS: BASOPHILS # (AUTO) 0.1 X10'3 (0-0.2); BASOPHILS % (AUTO) 0.5 % (0-1); EOSINOPHILS % (AUTO) 0.3 % (0-6); HEMATOCRIT 27.3 % (35.0-45.0); HEMOGLOBIN 8.7 g/dl (12.0-16.0); LYMPHOCYTES # (AUTO) 0.7 X10'3 (1.1-4.8); LYMPHOCYTES % (AUTO) 5.3 % (21-51); MEAN CORPUSCULAR VOLUME 90.6 FL (78-98); MEAN PLATELET VOLUME 6.7 FL (7.4-10.4); MONOCYTES # (AUTO) 0.6 X10'3 (0-0.9); MONOCYTES % (AUTO) 4.9 % (2-12); NEUTROPHILS # (AUTO) 11.6 X10'3 (1.8-7.7); PLATELET COUNT 400 X10'3 (140-440); RED BLOOD COUNT 3.02 X10'6 (4.20-5.60); RED CELL DISTRIBUTION WIDTH 18.4 % (11.5-14.5)
[2023-10-26] VITALS (8 sets, daily range): BP systolic 127–149; BP diastolic 69–87; PULSE 97–103; RESP 17–25; TEMP 97.3–98.5; O2SAT 97–100
[2023-10-26 04:59] LABS: HEMOGLOBIN 8.7 g/dl (12.0-16.0); WHITE BLOOD COUNT 13.4 X10'3 (4.5-11.0)
[2023-10-26 05:00] LABS: BASOPHILS # (AUTO) 0.1 X10'3 (0-0.2); BASOPHILS % (AUTO) 0.4 % (0-1); EOSINOPHILS # (AUTO) 0.1 X10'3 (0-0.9); EOSINOPHILS % (AUTO) 0.8 % (0-6); HEMATOCRIT 27.2 % (35.0-45.0); LYMPHOCYTES # (AUTO) 0.7 X10'3 (1.1-4.8); LYMPHOCYTES % (AUTO) 5.1 % (21-51); MEAN CORPUSCULAR HEMOGLOBIN 29.2 PG (27.0-31.0); MEAN CORPUSCULAR HGB CONC 31.9 g/dL (33.0-36.5); MEAN CORPUSCULAR VOLUME 91.4 FL (78-98); MEAN PLATELET VOLUME 6.8 FL (7.4-10.4); MONOCYTES # (AUTO) 0.7 X10'3 (0-0.9); MONOCYTES % (AUTO) 5.3 % (2-12); NEUTROPHILS # (AUTO) 11.9 X10'3 (1.8-7.7); NEUTROPHILS % (AUTO) 88.4 % (42-75); PLATELET COUNT 348 X10'3 (140-440); RED BLOOD COUNT 2.98 X10'6 (4.20-5.60); RED CELL DISTRIBUTION WIDTH 18.8 % (11.5-14.5)
[2023-10-26 05:12] LABS: ALANINE AMINOTRANSFERASE 7 U/L (12-78); ALBUMIN 1.3 G/DL (3.4-5.0); ALBUMIN/GLOBULIN RATIO 0.4 (1.1-1.5); ALKALINE PHOSPHATASE 80 IU/L (46-116); ANION GAP 6 (8-16); ASPARTATE AMINO TRANSFERASE 13 U/L (10-37); BILIRUBIN,TOTAL 0.1 MG/DL (0.1-1.0); BLOOD UREA NITROGEN 13 MG/DL (7-18); BUN/CREATININE RATIO 43.3 (10.0-20.0); CALCIUM 8.1 MG/DL (8.5-10.1); CHLORIDE 107 MMOL/L (99-107); GLUCOSE 123 MG/DL (70-104); SODIUM 138 MMOL/L (135-145); TOTAL CARBON DIOXIDE 25.3 MMOL/L (24-32); TOTAL PROTEIN 4.8 G/DL (6.4-8.2); eCRCL 120 ML/MIN; eGFR > 90 ML/MIN
[2023-10-26 05:28] LABS: INR 1.2 INR; PROTHROMBIN TIME 12.2 SECONDS (9.0-12.0)
[2023-10-26 05:32] LABS: ANISOCYTOSIS 2+; PLATELET ESTIMATE NORMAL
[2023-10-26 05:39] LABS: ACANTHOCYTES FEW; BURR CELLS FEW; ELLIPTOCYTES FEW; POIKILOCYTOSIS 1+
[2023-10-26 05:40] LABS: HYPOCHROMASIA 1+; POLYCHROMASIA 1+
[2023-10-26 08:20] LABS: MAGNESIUM 1.7 MG/DL (1.5-2.4)
[2023-10-27 02:00] VITALS: BP 129/70; PULSE 97; RESP 20; TEMP 98.1; O2SAT 98
[2023-10-27 06:00] VITALS: BP 139/79; PULSE 102; RESP 19; TEMP 97.8; O2SAT 99
[2023-10-27 06:59] LABS: INR 1.2 INR
[2023-10-27 07:04] LABS: BASOPHILS # (AUTO) 0.1 X10'3 (0-0.2); BASOPHILS % (AUTO) 0.6 % (0-1); EOSINOPHILS # (AUTO) 0.1 X10'3 (0-0.9); HEMATOCRIT 25.3 % (35.0-45.0); LYMPHOCYTES # (AUTO) 0.6 X10'3 (1.1-4.8); LYMPHOCYTES % (AUTO) 4.7 % (21-51); MEAN CORPUSCULAR HEMOGLOBIN 28.9 PG (27.0-31.0); MEAN CORPUSCULAR HGB CONC 31.6 g/dL (33.0-36.5); MEAN CORPUSCULAR VOLUME 91.6 FL (78-98); MEAN PLATELET VOLUME 6.9 FL (7.4-10.4); MONOCYTES # (AUTO) 0.7 X10'3 (0-0.9); MONOCYTES % (AUTO) 5.7 % (2-12); NEUTROPHILS # (AUTO) 11.2 X10'3 (1.8-7.7); PLATELET COUNT 360 X10'3 (140-440); RED BLOOD COUNT 2.76 X10'6 (4.20-5.60); RED CELL DISTRIBUTION WIDTH 18.7 % (11.5-14.5); WHITE BLOOD COUNT 12.7 X10'3 (4.5-11.0)
[2023-10-27 07:07] LABS: ALBUMIN 1.3 G/DL (3.4-5.0); ANION GAP 7 (8-16); BLOOD UREA NITROGEN 14 MG/DL (7-18); BUN/CREATININE RATIO 46.7 (10.0-20.0); CHLORIDE 105 MMOL/L (99-107); GLUCOSE 109 MG/DL (70-104); MAGNESIUM 1.7 MG/DL (1.5-2.4); POTASSIUM 3.3 MMOL/L (3.5-5.1); PREALBUMIN 17.7 MG/DL (19-36); SODIUM 137 MMOL/L (135-145); TOTAL CARBON DIOXIDE 24.7 MMOL/L (24-32); TRIGLYCERIDES 68 MG/DL (20-135); eCRCL 120 ML/MIN; eGFR > 90 ML/MIN
[2023-10-27 08:00] VITALS: RESP 19; O2SAT 99
[2023-10-27 11:00] VITALS: BP 128/74; PULSE 98; RESP 18; TEMP 97.4; O2SAT 98
[2023-10-27] MEDS ORDERED: AMI200T PO (13:00)
[2023-10-27] MEDS ORDERED: METO-395 PO (13:00)
[2023-10-27] MEDS ORDERED: DOCU100C40 PO (13:00)
[2023-10-27 15:00] VITALS: BP 141/72; PULSE 101; RESP 21; TEMP 97.4; O2SAT 98
[2023-10-27] MEDS: metroNIDAZOLE-Flagyl 500mg/NS 100 ML IV SCH (17:03)
[2023-10-27] MEDS: cefepime 2g/NS 100ml ADVANTAGE 100 ML IV SCH (17:21)
[2023-10-28] MEDS ORDERED: micafungin inj 100 MG in normal saline 100ml IV soln 100 ML IV SCH (08:00)
== END 2023-10-27 19:15 | DRG 329 ==
LOC: ER 13:08 → ED HOLD 18:16 → EDBEDREQ 19:43 → SUR 3N 20:49 → PCU 3S 10-09 11:12 → CICU 2S 10-13 22:22 → PCU 3S 10-19 17:12
PROVIDERS: ADMIT Internal Medicine; ATTEND Internal Medicine
PROC: 0WJG0ZZ Inspection of Peritoneal Cavity, Open Approach (ICD-10-PCS; 2023-10-06)
PROC: BW211ZZ Computerized Tomography (CT Scan) of Abdomen and Pelvis using Low Osmolar Contrast (ICD-10-PCS; 2023-10-07)
PROC: 0DTJ0ZZ Resection of Appendix, Open Approach (ICD-10-PCS; 2023-10-07)
PROC: 0DNW0ZZ Release Peritoneum, Open Approach (ICD-10-PCS; 2023-10-07)
PROC: 0D190ZA Bypass Duodenum to Jejunum, Open Approach (ICD-10-PCS; principal; 2023-10-07 11:40)
PROC: 0F9400Z Drainage of Gallbladder with Drainage Device, Open Approach (ICD-10-PCS; 2023-10-15)
PROC: 30233N1 Transfusion of Nonautologous Red Blood Cells into Peripheral Vein, Percutaneous Approach (ICD-10-PCS; 2023-10-15)
DX: K91.89 Other postprocedural complications and disorders of digestive system (principal); A41.9 Sepsis, unspecified organism; E43 Unspecified severe protein-calorie malnutrition; N17.0 Acute kidney failure with tubular necrosis; K25.6 Chronic or unspecified gastric ulcer with both hemorrhage and perforation; K83.1 Obstruction of bile duct; T85.638A Leakage of other specified internal prosthetic devices, implants and grafts, initial encounter; G93.40 Encephalopathy, unspecified; Y83.8 Other surgical procedures as the cause of abnormal reaction of the patient, or of later complication, without mention of misadventure at the time of the procedure; K37 Unspecified appendicitis; E86.0 Dehydration; E87.6 Hypokalemia; Z88.1 Allergy status to other antibiotic agents; Z68.24 Body mass index [BMI] 24.0-24.9, adult; Z88.2 Allergy status to sulfonamides; Z88.0 Allergy status to penicillin; D50.9 Iron deficiency anemia, unspecified; I48.91 Unspecified atrial fibrillation; D63.8 Anemia in other chronic diseases classified elsewhere; I10 Essential (primary) hypertension; K66.0 Peritoneal adhesions (postprocedural) (postinfection); Z74.09 Other reduced mobility; Z82.49 Family history of ischemic heart disease and other diseases of the circulatory system; Y92.89 Other specified places as the place of occurrence of the external cause; Z85.3 Personal history of malignant neoplasm of breast; Z79.899 Other long term (current) drug therapy; Z86.19 Personal history of other infectious and parasitic diseases
CPT/HCPCS: 36415; 36430; 36600; 71045; 74176; 74177; 76942; 78226; 80048; 80053; 80061; 82272; 82607; 82728; 82803; 82948; 83036; 83540; 83550; 83605; 83735; 83880; 84100; 84132; 84134; 84145; 84478; 85008; 85018; 85025; 85610; 85730; 86885; 86900; 86901; 86920; 87040; 87070; 87075; 87077; 87081; 87186; 88304; 93005; 93971; 94002; 94003; 94668; 94760; 97110; 97116; 97161; 97530; 97535; 99285; A4314; A4340; A4421; A4565; A4615; A4618; A4649; A5200; A6209; A6212; A6213; A6250; A6253; A6258; A6402; A6407; A6449; A7000; A9537; C1751; C1758; G0378; J0131; J0282; J0692; J0694; J1100; J1170; J1644; J1650; J1940; J2175; J2248; J2250; J2270; J2405; J2470; J2543; J2704; J2765; J2997; J3010; J3475; J3480; J3490; J7030; J7040; J7050; J7060; J7120; P9016; P9045; Q9963; Q9967

== ENCOUNTER 2023-11-05 13:19 | Inpatient (IN) | payer MEDICARE ==
[~2023-11-05] VITALS: Ht 157.5 cm; Wt 50.0 kg
[~2023-11-05 13:19] MED LIST changes: +AMI200T PO; +CHOL400T8 PO; -CIPR-202 PO; +DOCU100C40 PO; -METR-159 PO; +PANT-47 PO; -PANT40TA54 PO; -VITD400T PO
[2023-11-05 14:44] LABS: BILIRUBIN,URINE NEGATIVE (Neg); CLARITY,URINE SLIGHTLY CLOUDY (Clear); COLOR,URINE YELLOW (Yellow); GLUCOSE, URINE NEGATIVE (Neg); KETONES,URINE NEGATIVE (Neg); LEUKOCYTE ESTERASE ,URINE NEGATIVE (Neg); NITRITES, URINE NEGATIVE (Neg); OCCULT BLOOD,URINE TRACE-INTACT (Neg); PROTEIN,URINE NEGATIVE (Neg); UROBILINOGEN,URINE 0.2 E.U/dL (0.2-1.0)
[2023-11-05] MEDS ORDERED: albuterol 2.5 MG/3 ML nebule CONTNEB ONE (14:45)
[2023-11-05 14:49] LABS: UA COLLECTION TYPE FOLEY CATH
[2023-11-05 14:50] LABS: SQUAMOUS EPITHELIAL CELL,UR FEW /LPF (FEW)
[2023-11-05 14:51] LABS: BACTERIA,URINE NONE SEEN /HPF (Neg); RBC,URINE 0-2 /HPF (0-2); YEAST FEW /HPF (NEGATIVE)
[2023-11-05 14:57] LABS: BASOPHILS # (AUTO) 0.1 X10'3 (0-0.2); BASOPHILS % (AUTO) 0.7 % (0-1); EOSINOPHILS # (AUTO) 0.1 X10'3 (0-0.9); EOSINOPHILS % (AUTO) 1.4 % (0-6); HEMATOCRIT 29.7 % (35.0-45.0); HEMOGLOBIN 9.5 g/dl (12.0-16.0); LYMPHOCYTES % (AUTO) 9.6 % (21-51); MEAN CORPUSCULAR HEMOGLOBIN 29.5 PG (27.0-31.0); MEAN CORPUSCULAR HGB CONC 31.9 g/dL (33.0-36.5); MEAN CORPUSCULAR VOLUME 92.4 FL (78-98); MEAN PLATELET VOLUME 6.1 FL (7.4-10.4); MONOCYTES % (AUTO) 9.8 % (2-12); NEUTROPHILS % (AUTO) 78.5 % (42-75); PLATELET COUNT 518 X10'3 (140-440); RED BLOOD COUNT 3.22 X10'6 (4.20-5.60); RED CELL DISTRIBUTION WIDTH 18.9 % (11.5-14.5); WHITE BLOOD COUNT 10.2 X10'3 (4.5-11.0)
[2023-11-05] MEDS: normal saline 1000ML IV soln IVB ONE (15:00)
[2023-11-05 15:25] LABS: ALBUMIN 1.9 G/DL (3.4-5.0); ALBUMIN/GLOBULIN RATIO 0.5 (1.1-1.5); ALKALINE PHOSPHATASE 108 IU/L (46-116); ANION GAP 4 (8-16); ASPARTATE AMINO TRANSFERASE 16 U/L (10-37); BILIRUBIN,TOTAL 0.2 MG/DL (0.1-1.0); BLOOD UREA NITROGEN 17 MG/DL (7-18); BUN/CREATININE RATIO 44.7 (10.0-20.0); CALCIUM 8.8 MG/DL (8.5-10.1); CHLORIDE 102 MMOL/L (99-107); CREATININE 0.38 MG/DL (0.40-0.90); GLUCOSE 93 MG/DL (70-104); LIPASE 87 U/L (16-77); POTASSIUM 4.4 MMOL/L (3.5-5.1); SODIUM 133 MMOL/L (135-145); TOTAL PROTEIN 5.8 G/DL (6.4-8.2); eCRCL 95 ML/MIN; eGFR > 90 ML/MIN
[2023-11-05 15:48] LABS: ALANINE AMINOTRANSFERASE < 6 U/L (12-78)
[2023-11-05] MEDS ORDERED: mag hydrox/Alum hydrox/simeth 30ml oral suspension PO PRN (17:15)
[2023-11-05] MEDS ORDERED: bisacodyl 10mg suppository rectal RC PRN (17:15)
[2023-11-05] MEDS ORDERED: magnesium hydroxide 30ml (MOM) UD suspension PO PRN (17:15)
[2023-11-05] MEDS ORDERED: ondansetron/PF 4mg/2ml inj IV PRN (17:15)
[2023-11-05] MEDS ORDERED: magnesium sulf-water 4G/100mL 100 ML IV PRN (17:15)
[2023-11-05] MEDS ORDERED: magnesium sulf-water 2g/50mL 50 ML IV PRN (17:15)
[2023-11-05] MEDS ORDERED: acetaminophen 325mg tablet PO PRN (17:15)
[2023-11-05] MEDS ORDERED: potassium Cl 20 mEq SR tablet PO PRN ×2 (17:15)
[2023-11-05] MEDS: normal saline 1000ml 1,000 ML IV SCH (19:55)
[2023-11-05] MEDS: cefepime 2g/NS 100ml ADVANTAGE 100 ML IV SCH (19:56)
[2023-11-05] MEDS: docusate sod 100mg capsule PO SCH (19:56)
[2023-11-05] MEDS: enoxaparin 40mg/0.4ml syringe SQ SCH (19:56)
[2023-11-05] MEDS: K and/or MAG REPLACEMENT MC SCH (19:57)
[2023-11-06] VITALS (7 sets, daily range): BP systolic 125–163; BP diastolic 64–80; PULSE 78–99; RESP 14–18; TEMP 97.3–98.3; O2SAT 95–99
[2023-11-06] MEDS ORDERED: piperacillin/tazo 4.5gm/100ml 100 ML IV SCH
[2023-11-06] MEDS: metroNIDAZOLE-Flagyl 500mg/NS 100 ML IV SCH (00:52)
[2023-11-06 02:49] LABS: BASOPHILS # (AUTO) 0.1 X10'3 (0-0.2); BASOPHILS % (AUTO) 0.6 % (0-1); EOSINOPHILS # (AUTO) 0.2 X10'3 (0-0.9); EOSINOPHILS % (AUTO) 2.2 % (0-6); HEMATOCRIT 28.7 % (35.0-45.0); HEMOGLOBIN 9.3 g/dl (12.0-16.0); LYMPHOCYTES # (AUTO) 0.8 X10'3 (1.1-4.8); LYMPHOCYTES % (AUTO) 9.7 % (21-51); MEAN CORPUSCULAR HEMOGLOBIN 29.7 PG (27.0-31.0); MEAN CORPUSCULAR HGB CONC 32.3 g/dL (33.0-36.5); MEAN CORPUSCULAR VOLUME 92.1 FL (78-98); MEAN PLATELET VOLUME 6.1 FL (7.4-10.4); MONOCYTES # (AUTO) 0.7 X10'3 (0-0.9); MONOCYTES % (AUTO) 9.2 % (2-12); NEUTROPHILS # (AUTO) 6.3 X10'3 (1.8-7.7); NEUTROPHILS % (AUTO) 78.3 % (42-75); PLATELET COUNT 489 X10'3 (140-440); RED BLOOD COUNT 3.11 X10'6 (4.20-5.60); RED CELL DISTRIBUTION WIDTH 18.6 % (11.5-14.5); WHITE BLOOD COUNT 8.1 X10'3 (4.5-11.0)
[2023-11-06 03:09] LABS: ALBUMIN 1.8 G/DL (3.4-5.0); ALBUMIN/GLOBULIN RATIO 0.5 (1.1-1.5); ALKALINE PHOSPHATASE 118 IU/L (46-116); ANION GAP 7 (8-16); ASPARTATE AMINO TRANSFERASE 22 U/L (10-37); BILIRUBIN,TOTAL 0.2 MG/DL (0.1-1.0); BLOOD UREA NITROGEN 10 MG/DL (7-18); BUN/CREATININE RATIO 32.3 (10.0-20.0); CALCIUM 8.6 MG/DL (8.5-10.1); CHLORIDE 104 MMOL/L (99-107); CREATININE 0.31 MG/DL (0.40-0.90); GLUCOSE 94 MG/DL (70-104); MAGNESIUM 1.8 MG/DL (1.5-2.4); POTASSIUM 3.7 MMOL/L (3.5-5.1); SODIUM 134 MMOL/L (135-145); TOTAL CARBON DIOXIDE 23.5 MMOL/L (24-32); TOTAL PROTEIN 5.6 G/DL (6.4-8.2); eCRCL 116 ML/MIN; eGFR > 90 ML/MIN
[2023-11-06 03:12] LABS: ALANINE AMINOTRANSFERASE < 6 U/L (12-78)
[2023-11-06 03:46] LABS: ANISOCYTOSIS 2+; BURR CELLS FEW; ELLIPTOCYTES FEW; PLATELET ESTIMATE INCREASED; POLYCHROMASIA FEW
[2023-11-06 03:47] LABS: ACANTHOCYTES FEW; POIKILOCYTOSIS 1+
[2023-11-06] MEDS: amiodarone 200mg tablet PO SCH (19:48)
[2023-11-06] MEDS ORDERED: docusate sod 100mg capsule PO SCH (20:00)
[2023-11-07] VITALS (7 sets, daily range): BP systolic 130–169; BP diastolic 63–77; PULSE 80–95; RESP 14–18; TEMP 97.8–99.1; O2SAT 98–99
[2023-11-07 04:34] LABS: BASOPHILS # (AUTO) 0.1 X10'3 (0-0.2); EOSINOPHILS # (AUTO) 0.1 X10'3 (0-0.9); EOSINOPHILS % (AUTO) 1.2 % (0-6); HEMATOCRIT 28.8 % (35.0-45.0); HEMOGLOBIN 9.2 g/dl (12.0-16.0); LYMPHOCYTES # (AUTO) 0.7 X10'3 (1.1-4.8); LYMPHOCYTES % (AUTO) 12.3 % (21-51); MEAN CORPUSCULAR HEMOGLOBIN 29.5 PG (27.0-31.0); MEAN CORPUSCULAR VOLUME 92.2 FL (78-98); MEAN PLATELET VOLUME 6.2 FL (7.4-10.4); MONOCYTES # (AUTO) 0.5 X10'3 (0-0.9); MONOCYTES % (AUTO) 9.3 % (2-12); NEUTROPHILS # (AUTO) 4.4 X10'3 (1.8-7.7); NEUTROPHILS % (AUTO) 76.2 % (42-75); PLATELET COUNT 402 X10'3 (140-440); RED BLOOD COUNT 3.12 X10'6 (4.20-5.60); WHITE BLOOD COUNT 5.8 X10'3 (4.5-11.0)
[2023-11-07 04:49] LABS: ALBUMIN 1.7 G/DL (3.4-5.0); ALBUMIN/GLOBULIN RATIO 0.5 (1.1-1.5); ALKALINE PHOSPHATASE 122 IU/L (46-116); ANION GAP 8 (8-16); ASPARTATE AMINO TRANSFERASE 18 U/L (10-37); BILIRUBIN,TOTAL 0.3 MG/DL (0.1-1.0); BLOOD UREA NITROGEN 9 MG/DL (7-18); BUN/CREATININE RATIO 27.3 (10.0-20.0); CALCIUM 8.4 MG/DL (8.5-10.1); CHLORIDE 106 MMOL/L (99-107); CREATININE 0.33 MG/DL (0.40-0.90); GLUCOSE 73 MG/DL (70-104); MAGNESIUM 1.6 MG/DL (1.5-2.4); POTASSIUM 3.3 MMOL/L (3.5-5.1); SODIUM 137 MMOL/L (135-145); TOTAL CARBON DIOXIDE 23.4 MMOL/L (24-32); TOTAL PROTEIN 5.3 G/DL (6.4-8.2); eCRCL 109 ML/MIN; eGFR > 90 ML/MIN
[2023-11-07 04:55] LABS: ALANINE AMINOTRANSFERASE 6 U/L (12-78)
[2023-11-07] MEDS: cholecalciferol (vitamin D3) 400 unit (10mcg) tablet PO SCH (08:00)
[2023-11-07] MEDS: metoprolol succinate 25mg (24-HOUR) SR. Tablet PO SCH (08:35)
[2023-11-07] MEDS: ferrous gluconate 324mg tablet PO SCH (08:35)
[2023-11-07] MEDS: pantoprazole 40mg Tablet.DR PO SCH (08:35)
[2023-11-07] MEDS: losartan 50mg tablet PO SCH (08:36)
[2023-11-07] MEDS ORDERED: ondansetron 4mg rapidly disintigrating tab PO PRN (14:50)
[2023-11-07] MEDS: potassium Cl 40MEQ/1/2NS 520ml 520 ML IV PRN (16:26)
[2023-11-08 04:38] LABS: BASOPHILS # (AUTO) 0.1 X10'3 (0-0.2); EOSINOPHILS # (AUTO) 0.1 X10'3 (0-0.9); EOSINOPHILS % (AUTO) 1.2 % (0-6); HEMATOCRIT 28.6 % (35.0-45.0); HEMOGLOBIN 9.3 g/dl (12.0-16.0); LYMPHOCYTES # (AUTO) 0.7 X10'3 (1.1-4.8); LYMPHOCYTES % (AUTO) 10.5 % (21-51); MEAN CORPUSCULAR HEMOGLOBIN 29.8 PG (27.0-31.0); MEAN CORPUSCULAR HGB CONC 32.5 g/dL (33.0-36.5); MEAN CORPUSCULAR VOLUME 91.8 FL (78-98); MEAN PLATELET VOLUME 6.3 FL (7.4-10.4); MONOCYTES # (AUTO) 0.4 X10'3 (0-0.9); MONOCYTES % (AUTO) 6.8 % (2-12); NEUTROPHILS # (AUTO) 5.1 X10'3 (1.8-7.7); NEUTROPHILS % (AUTO) 80.5 % (42-75); PLATELET COUNT 329 X10'3 (140-440); RED BLOOD COUNT 3.12 X10'6 (4.20-5.60); RED CELL DISTRIBUTION WIDTH 17.6 % (11.5-14.5); WHITE BLOOD COUNT 6.4 X10'3 (4.5-11.0)
[2023-11-08 04:48] LABS: ALBUMIN 1.8 G/DL (3.4-5.0); ALBUMIN/GLOBULIN RATIO 0.5 (1.1-1.5); ALKALINE PHOSPHATASE 120 IU/L (46-116); ANION GAP 10 (8-16); ASPARTATE AMINO TRANSFERASE 20 U/L (10-37); BILIRUBIN,TOTAL 0.3 MG/DL (0.1-1.0); BLOOD UREA NITROGEN 6 MG/DL (7-18); BUN/CREATININE RATIO 16.2 (10.0-20.0); CALCIUM 8.2 MG/DL (8.5-10.1); CHLORIDE 104 MMOL/L (99-107); CREATININE 0.37 MG/DL (0.40-0.90); GLUCOSE 68 MG/DL (70-104); MAGNESIUM 1.5 MG/DL (1.5-2.4); POTASSIUM 3.5 MMOL/L (3.5-5.1); SODIUM 134 MMOL/L (135-145); TOTAL CARBON DIOXIDE 20.5 MMOL/L (24-32); TOTAL PROTEIN 5.4 G/DL (6.4-8.2); eCRCL 97 ML/MIN; eGFR > 90 ML/MIN
[2023-11-08 05:01] LABS: ALANINE AMINOTRANSFERASE < 6 U/L (12-78)
[2023-11-08 06:00] VITALS: BP 130/71; PULSE 76; RESP 14; TEMP 98.6; O2SAT 95
[2023-11-08 08:00] VITALS: RESP 14; O2SAT 95
[2023-11-08 10:00] VITALS: BP 124/64; PULSE 91; RESP 20; TEMP 97.9; O2SAT 98
[2023-11-08] MEDS: metroNIDAZOLE 500mg tablet PO SCH (17:25)
[2023-11-08 18:00] VITALS: BP 154/71; PULSE 86; RESP 14; TEMP 98.9; O2SAT 97
[2023-11-08 20:00] VITALS: RESP 16; O2SAT 97
[2023-11-08 22:00] VITALS: BP 132/66; PULSE 86; RESP 20; TEMP 97.4; O2SAT 99
[2023-11-09 06:58] LABS: BASOPHILS % (AUTO) 0.9 % (0-1); EOSINOPHILS % (AUTO) 0.8 % (0-6); HEMATOCRIT 29.8 % (35.0-45.0); HEMOGLOBIN 9.7 g/dl (12.0-16.0); LYMPHOCYTES # (AUTO) 0.6 X10'3 (1.1-4.8); LYMPHOCYTES % (AUTO) 11.8 % (21-51); MEAN CORPUSCULAR HEMOGLOBIN 29.9 PG (27.0-31.0); MEAN CORPUSCULAR HGB CONC 32.5 g/dL (33.0-36.5); MEAN CORPUSCULAR VOLUME 91.8 FL (78-98); MEAN PLATELET VOLUME 6.8 FL (7.4-10.4); MONOCYTES # (AUTO) 0.4 X10'3 (0-0.9); MONOCYTES % (AUTO) 7.7 % (2-12); NEUTROPHILS # (AUTO) 4.2 X10'3 (1.8-7.7); NEUTROPHILS % (AUTO) 78.8 % (42-75); PLATELET COUNT 309 X10'3 (140-440); RED BLOOD COUNT 3.25 X10'6 (4.20-5.60); RED CELL DISTRIBUTION WIDTH 17.2 % (11.5-14.5); WHITE BLOOD COUNT 5.3 X10'3 (4.5-11.0)
[2023-11-09 07:26] LABS: ALANINE AMINOTRANSFERASE 7 U/L (12-78); ALBUMIN 1.8 G/DL (3.4-5.0); ALBUMIN/GLOBULIN RATIO 0.5 (1.1-1.5); ALKALINE PHOSPHATASE 106 IU/L (46-116); ANION GAP 12 (8-16); ASPARTATE AMINO TRANSFERASE 17 U/L (10-37); BILIRUBIN,TOTAL 0.4 MG/DL (0.1-1.0); BLOOD UREA NITROGEN 6 MG/DL (7-18); BUN/CREATININE RATIO 15.8 (10.0-20.0); CALCIUM 8.2 MG/DL (8.5-10.1); CHLORIDE 102 MMOL/L (99-107); CREATININE 0.38 MG/DL (0.40-0.90); GLUCOSE 72 MG/DL (70-104); MAGNESIUM 1.7 MG/DL (1.5-2.4); SODIUM 135 MMOL/L (135-145); TOTAL CARBON DIOXIDE 21.2 MMOL/L (24-32); TOTAL PROTEIN 5.4 G/DL (6.4-8.2); eCRCL 95 ML/MIN; eGFR > 90 ML/MIN
[2023-11-09 07:34] VITALS: BP 140/68; PULSE 89
[2023-11-09] MEDS ORDERED: magnesium sulf-water 2g/50mL 50 ML IV PRN ×2 (07:40→11:25)
[2023-11-09] MEDS ORDERED: magnesium Cl slow-release 64mg tablet PO PRN ×2 (07:40→11:25)
[2023-11-09] MEDS ORDERED: potassium Cl 20 mEq SR tablet PO PRN ×3 (07:40→11:25)
[2023-11-09] MEDS ORDERED: magnesium sulf-water 4G/100mL 100 ML IV PRN ×2 (07:40→11:25)
[2023-11-09] MEDS: potassium Cl 20 mEq SR tablet PO PRN (07:54)
[2023-11-09 08:00] VITALS: RESP 16
[2023-11-09] MEDS: K and/or MAG REPLACEMENT MC SCH (08:00)
[2023-11-09 08:41] VITALS: BP 130/71; PULSE 76; RESP 14; TEMP 98.6; O2SAT 95
[2023-11-09] MEDS ORDERED: potassium Cl 40MEQ/1/2NS 520ml 520 ML IV PRN (11:25)
[2023-11-09 18:00] VITALS: BP 156/81; PULSE 98; RESP 20; TEMP 98; O2SAT 96
[2023-11-09] MEDS: potassium Cl 40MEQ/1/2NS 520ml 520 ML IV PRN (21:06)
[2023-11-09 22:00] VITALS: BP 177/64; PULSE 85; RESP 18; TEMP 98.8; O2SAT 98
[2023-11-09 23:00] VITALS: BP 153/74; PULSE 83
[2023-11-10 06:00] VITALS: BP 148/81; PULSE 83; RESP 16; TEMP 98; O2SAT 98
[2023-11-10 06:22] LABS: BASOPHILS % (AUTO) 0.8 % (0-1); EOSINOPHILS # (AUTO) 0.1 X10'3 (0-0.9); HEMATOCRIT 29.1 % (35.0-45.0); HEMOGLOBIN 9.4 g/dl (12.0-16.0); LYMPHOCYTES # (AUTO) 0.7 X10'3 (1.1-4.8); LYMPHOCYTES % (AUTO) 12.9 % (21-51); MEAN CORPUSCULAR HEMOGLOBIN 29.5 PG (27.0-31.0); MEAN CORPUSCULAR HGB CONC 32.1 g/dL (33.0-36.5); MEAN CORPUSCULAR VOLUME 91.8 FL (78-98); MEAN PLATELET VOLUME 6.6 FL (7.4-10.4); MONOCYTES # (AUTO) 0.4 X10'3 (0-0.9); MONOCYTES % (AUTO) 8.6 % (2-12); NEUTROPHILS # (AUTO) 3.9 X10'3 (1.8-7.7); NEUTROPHILS % (AUTO) 76.7 % (42-75); PLATELET COUNT 286 X10'3 (140-440); RED BLOOD COUNT 3.17 X10'6 (4.20-5.60); RED CELL DISTRIBUTION WIDTH 17.2 % (11.5-14.5); WHITE BLOOD COUNT 5.1 X10'3 (4.5-11.0)
[2023-11-10 07:07] LABS: ALANINE AMINOTRANSFERASE 7 U/L (12-78); ALBUMIN 1.8 G/DL (3.4-5.0); ALBUMIN/GLOBULIN RATIO 0.5 (1.1-1.5); ALKALINE PHOSPHATASE 89 IU/L (46-116); ANION GAP 6 (8-16); ASPARTATE AMINO TRANSFERASE 17 U/L (10-37); BILIRUBIN,TOTAL 0.3 MG/DL (0.1-1.0); BLOOD UREA NITROGEN 3 MG/DL (7-18); BUN/CREATININE RATIO 8.8 (10.0-20.0); CALCIUM 8.2 MG/DL (8.5-10.1); CHLORIDE 104 MMOL/L (99-107); CREATININE 0.34 MG/DL (0.40-0.90); GLUCOSE 89 MG/DL (70-104); MAGNESIUM 1.6 MG/DL (1.5-2.4); POTASSIUM 3.7 MMOL/L (3.5-5.1); SODIUM 134 MMOL/L (135-145); TOTAL CARBON DIOXIDE 24.3 MMOL/L (24-32); TOTAL PROTEIN 5.1 G/DL (6.4-8.2); eCRCL 106 ML/MIN; eGFR > 90 ML/MIN
[2023-11-10 08:00] VITALS: RESP 16
[2023-11-10 11:00] VITALS: BP 142/78; PULSE 82; RESP 16; TEMP 98.2; O2SAT 97
[2023-11-10 18:00] VITALS: BP 142/78; PULSE 94; RESP 16; TEMP 97.9; O2SAT 98
== END 2023-11-10 19:29 | DRG 393 ==
LOC: ER 13:20 → ED HOLD 17:25 → SUR 3N 11-06 05:40
PROVIDERS: ADMIT Family Medicine; ATTEND Family Medicine
DX: K91.89 Other postprocedural complications and disorders of digestive system (principal); E43 Unspecified severe protein-calorie malnutrition; K83.1 Obstruction of bile duct; I48.20 Chronic atrial fibrillation, unspecified; I10 Essential (primary) hypertension; Y83.8 Other surgical procedures as the cause of abnormal reaction of the patient, or of later complication, without mention of misadventure at the time of the procedure; Z82.49 Family history of ischemic heart disease and other diseases of the circulatory system; Z85.3 Personal history of malignant neoplasm of breast; Z88.2 Allergy status to sulfonamides; Z90.49 Acquired absence of other specified parts of digestive tract; Z68.20 Body mass index [BMI] 20.0-20.9, adult; Y92.89 Other specified places as the place of occurrence of the external cause
CPT/HCPCS: 36415; 71045; 74176; 80053; 81001; 83605; 83690; 83735; 85008; 85025; 87040; 87070; 87077; 87081; 87088; 87186; 92508; 92616; 96360; 97116; 97161; 97530; 97535; 99285; A4649; A6213; A6253; A6258; A6266; A6402; A6449; G0378; J0692; J1650; J3480; J3490; J7030

== ENCOUNTER 2024-02-06 12:25 | Emergency (ER) | payer MEDICARE ==
[~2024-02-06] VITALS: Ht 152.4 cm; Wt 39.9 kg
[2024-02-06 12:41] VITALS: TEMP 98
[2024-02-06] MEDS ORDERED: RIVA15TA PO (14:20)
[2024-02-06] MEDS ORDERED: APIX5TAB3 PO (14:23)
[2024-02-06] MEDS: apixaban 5mg tablet PO ONE (15:01)
[2024-02-06 15:19] VITALS: BP 158/82; PULSE 82; RESP 15; O2SAT 98
== END 2024-02-06 15:22 | disposition home or self-care (01) ==
LOC: ER 12:26
DX: I82.462 Acute embolism and thrombosis of left calf muscular vein (principal); Z88.2 Allergy status to sulfonamides; Z79.899 Other long term (current) drug therapy
CPT/HCPCS: 99284

== ENCOUNTER 2024-03-18 09:21 | Emergency (ER) | payer MEDICARE ==
[~2024-03-18] VITALS: Ht 157.5 cm; Wt 38.2 kg
[~2024-03-18 09:21] MED LIST changes: +APIX5TAB3 PO
[2024-03-18 09:29] VITALS: BP 153/95; PULSE 91; O2SAT 100
[2024-03-18 11:22] VITALS: RESP 16
[2024-03-18] MEDS: ketorolac trometh 15mg/ml vial 15 MG/ML ML IM ONE (11:22)
[2024-03-18] MEDS: LIDOcaine 5% patch TP ONE (11:22)
[2024-03-18] MEDS ORDERED: LIDO700A32 TOP (11:42)
[2024-03-18 11:49] VITALS: TEMP 97.9
== END 2024-03-18 11:51 | disposition home or self-care (01) ==
LOC: ER 09:22
DX: M54.2 Cervicalgia (principal); G89.29 Other chronic pain; Z88.1 Allergy status to other antibiotic agents; Z88.2 Allergy status to sulfonamides
CPT/HCPCS: 96372; 99283; J1885

== ENCOUNTER 2024-04-12 10:13 | Inpatient (IN) | payer MEDICARE ==
[~2024-04-12] VITALS: Ht 157.5 cm; Wt 35.0 kg
[~2024-04-12 10:13] MED LIST changes: +LIDO700A32 TOP
[2024-04-12 11:43] LABS: BASOPHILS % (AUTO) 0.5 % (0-1); EOSINOPHILS % (AUTO) 0.1 % (0-6); HEMATOCRIT 35.8 % (35.0-45.0); LYMPHOCYTES # (AUTO) 0.6 X10'3 (1.1-4.8); LYMPHOCYTES % (AUTO) 13.2 % (21-51); MEAN CORPUSCULAR HEMOGLOBIN 33.2 PG (27.0-31.0); MEAN CORPUSCULAR HGB CONC 33.7 g/dL (33.0-36.5); MEAN CORPUSCULAR VOLUME 98.6 FL (78-98); MEAN PLATELET VOLUME 6.5 FL (7.4-10.4); MONOCYTES # (AUTO) 0.6 X10'3 (0-0.9); MONOCYTES % (AUTO) 12.1 % (2-12); NEUTROPHILS # (AUTO) 3.6 X10'3 (1.8-7.7); NEUTROPHILS % (AUTO) 74.1 % (42-75); PLATELET COUNT 322 X10'3 (140-440); RED BLOOD COUNT 3.63 X10'6 (4.20-5.60); WHITE BLOOD COUNT 4.8 X10'3 (4.5-11.0)
[2024-04-12 11:57] LABS: ALBUMIN 2.4 G/DL (3.4-5.0); ANION GAP 6 (8-16); BLOOD UREA NITROGEN 9 MG/DL (7-18); BUN/CREATININE RATIO 15.5 (10.0-20.0); CALCIUM 8.7 MG/DL (8.5-10.1); CHLORIDE 98 MMOL/L (99-107); CREATININE 0.58 MG/DL (0.40-0.90); GLUCOSE 87 MG/DL (70-104); SODIUM 137 MMOL/L (135-145); TOTAL CARBON DIOXIDE 32.9 MMOL/L (24-32); eCRCL 43 ML/MIN; eGFR > 90 ML/MIN
[2024-04-12 12:01] LABS: POTASSIUM 2.7 MMOL/L (3.5-5.1)
[2024-04-12] MEDS ORDERED: potassium Cl 20mEq/100mL bag 100 ML IV PRN (12:05)
[2024-04-12] MEDS ORDERED: potassium CL 10mEq/100ml bag 100 ML IV PRN (12:05)
[2024-04-12] MEDS ORDERED: potassium Cl 20 mEq SR tablet PO PRN ×2 (12:05→13:40)
[2024-04-12] MEDS ORDERED: potassium Cl 40MEQ/270ML bag 250 ML IV PRN (12:05)
[2024-04-12] MEDS ORDERED: magnesium sulf-water 2g/50mL 50 ML IV PRN ×2 (12:05→13:40)
[2024-04-12] MEDS ORDERED: iohexol 300mg/ml 100ml inj. ONE (12:10)
[2024-04-12 12:25] LABS: ANISOCYTOSIS 2+; PLATELET ESTIMATE NORMAL
[2024-04-12 12:37] LABS: ALANINE AMINOTRANSFERASE 56 U/L (12-78); ALBUMIN/GLOBULIN RATIO 0.7 (1.1-1.5); ALKALINE PHOSPHATASE 258 IU/L (46-116); ASPARTATE AMINO TRANSFERASE 51 U/L (10-37); BILIRUBIN,DIRECT 0.7 MG/DL (0-0.3); BILIRUBIN,TOTAL 1.4 MG/DL (0.1-1.0); TOTAL PROTEIN 5.8 G/DL (6.4-8.2)
[2024-04-12] MEDS: magnesium sulf-water 4G/100mL 100 ML IV PRN (13:07)
[2024-04-12 13:14] LABS: BILIRUBIN,URINE MODERATE (Neg); CLARITY,URINE CLEAR (Clear); COLOR,URINE AMBER (Yellow); GLUCOSE, URINE 100 mg/dl (Neg); KETONES,URINE 15 mg/dl (Neg); LEUKOCYTE ESTERASE ,URINE NEGATIVE (Neg); OCCULT BLOOD,URINE NEGATIVE (Neg); PH,URINE 6.5 (4.8-8.0); PROTEIN,URINE 30 mg/dl (Neg)
[2024-04-12] MEDS: potassium Cl 40MEQ/1/2NS 520ml 520 ML IV PRN (13:28)
[2024-04-12] MEDS ORDERED: METH-797 PO (13:33)
[2024-04-12] MEDS ORDERED: HYDROmorphone/PF 0.2 MG/ML SYRINGE IV PRN (13:40)
[2024-04-12] MEDS ORDERED: morphine 2 MG/ML inj. syringe IV PRN (13:40)
[2024-04-12] MEDS ORDERED: HYDROcodone/acetaminophen 5mg/325mg tablet PO PRN (13:40)
[2024-04-12] MEDS ORDERED: magnesium Cl slow-release 64mg tablet PO PRN (13:40)
[2024-04-12] MEDS ORDERED: acetaminophen 325mg tablet PO PRN (13:40)
[2024-04-12] MEDS ORDERED: mag hydrox/Alum hydrox/simeth 30ml oral suspension PO PRN (13:40)
[2024-04-12] MEDS ORDERED: magnesium hydroxide 30ml (MOM) UD suspension PO PRN (13:40)
[2024-04-12] MEDS ORDERED: ondansetron/PF 4mg/2ml inj IV PRN (13:40)
[2024-04-12] MEDS ORDERED: magnesium sulf-water 4G/100mL 100 ML IV PRN (13:40)
[2024-04-12] MEDS ORDERED: HYDROmorphone inj. 0.5 MG/0.5 ML DISP.SYRIN IV PRN (13:40)
[2024-04-12 13:50] LABS: NITRITES, URINE NEGATIVE (Neg); UA COLLECTION TYPE CLN CATCH MIDSTREAM
[2024-04-12 13:51] LABS: BACTERIA,URINE FEW /HPF (Neg); CAL OXALATE CRYSTALS 2+ /HPF (NEGATIVE); FINE GRANULAR CAST 0-3 /LPF (NEGATIVE); MUCUS STRANDS NONE SEEN /LPF (Neg); RBC,URINE 0-2 /HPF (0-2); SQUAMOUS EPITHELIAL CELL,UR NONE SEEN /LPF (FEW); WBC,URINE 0-4 /HPF (0-4)
[2024-04-12] MEDS: normal saline 1000ml 1,000 ML IV SCH (14:31)
[2024-04-12] MEDS: pantoprazole 40 MG vial IV SCH (14:51)
[2024-04-12] MEDS: piperacillin/tazo 4.5gm/100ml 100 ML IV SCH (15:39)
[2024-04-12] MEDS ORDERED: LORazepam 2 mg/ml vial IV PRN (17:15)
[2024-04-12] MEDS ORDERED: LORazepam 1 MG tablet PO PRN (17:15)
[2024-04-12] MEDS ORDERED: haloperidol lactate 5mg/ml inj IM PRN (17:15)
[2024-04-12] MEDS ORDERED: dextrose 50%-water 50ml dispensing syringe IV PRN (17:15)
[2024-04-12] MEDS: docusate sod 100mg capsule PO SCH (20:00)
[2024-04-12] MEDS: K and/or MAG REPLACEMENT MC SCH (20:00)
[2024-04-12 20:31] VITALS: BP 108/68; PULSE 68; RESP 18; TEMP 98.4; O2SAT 95
[2024-04-12] MEDS: thiamine 100mg/ml 2ml inj. IV SCH (21:00)
[2024-04-13] VITALS (9 sets, daily range): BP systolic 90–145; BP diastolic 45–73; PULSE 61–80; RESP 9–20; TEMP 97.2–97.6; O2SAT 95–100
[2024-04-13] MEDS: thiamine 100mg tablet PO SCH (00:44)
[2024-04-13] MEDS: MULTIVIT-MIN/FERROUS GLUCONATE 9 MG/15 ML LIQUID PO SCH (00:44)
[2024-04-13] MEDS: folic acid 1mg/0.2ml inj IV SCH (00:45)
[2024-04-13] MEDS: potassium Cl 40MEQ/1/2NS 520ml 520 ML IV PRN (05:11)
[2024-04-13 07:00] LABS: BASOPHILS % (AUTO) 0.9 % (0-1); EOSINOPHILS % (AUTO) 0.2 % (0-6); HEMATOCRIT 27.6 % (35.0-45.0); HEMOGLOBIN 9.4 g/dl (12.0-16.0); LYMPHOCYTES # (AUTO) 0.7 X10'3 (1.1-4.8); MEAN CORPUSCULAR HEMOGLOBIN 33.9 PG (27.0-31.0); MEAN CORPUSCULAR VOLUME 99.6 FL (78-98); MEAN PLATELET VOLUME 6.5 FL (7.4-10.4); MONOCYTES # (AUTO) 0.4 X10'3 (0-0.9); MONOCYTES % (AUTO) 11.5 % (2-12); NEUTROPHILS # (AUTO) 2.5 X10'3 (1.8-7.7); NEUTROPHILS % (AUTO) 67.4 % (42-75); PLATELET COUNT 235 X10'3 (140-440); RED BLOOD COUNT 2.77 X10'6 (4.20-5.60); RED CELL DISTRIBUTION WIDTH 19.6 % (11.5-14.5); WHITE BLOOD COUNT 3.7 X10'3 (4.5-11.0)
[2024-04-13 07:32] LABS: ALANINE AMINOTRANSFERASE 36 U/L (12-78); ALBUMIN 1.6 G/DL (3.4-5.0); ALBUMIN/GLOBULIN RATIO 0.6 (1.1-1.5); ALKALINE PHOSPHATASE 183 IU/L (46-116); ANION GAP 7 (8-16); ASPARTATE AMINO TRANSFERASE 36 U/L (10-37); BLOOD UREA NITROGEN 9 MG/DL (7-18); BUN/CREATININE RATIO 17.6 (10.0-20.0); CALCIUM 7.6 MG/DL (8.5-10.1); CHLORIDE 106 MMOL/L (99-107); CREATININE 0.51 MG/DL (0.40-0.90); GLUCOSE 67 MG/DL (70-104); MAGNESIUM 1.8 MG/DL (1.5-2.4); POTASSIUM 4.1 MMOL/L (3.5-5.1); SODIUM 139 MMOL/L (135-145); TOTAL CARBON DIOXIDE 25.8 MMOL/L (24-32); TOTAL PROTEIN 4.4 G/DL (6.4-8.2); eCRCL 49 ML/MIN; eGFR > 90 ML/MIN
[2024-04-13] MEDS: NUT.TX.IMPAIRED DIGEST FXN (Ensure Clear) 237 ML PO SCH (13:48)
[2024-04-14 02:00] VITALS: BP 118/47; PULSE 77; RESP 18; TEMP 97.2; O2SAT 99
[2024-04-14 06:57] LABS: ALANINE AMINOTRANSFERASE 33 U/L (12-78); ALBUMIN 1.5 G/DL (3.4-5.0); ALBUMIN/GLOBULIN RATIO 0.5 (1.1-1.5); ALKALINE PHOSPHATASE 199 IU/L (46-116); ANION GAP 6 (8-16); ASPARTATE AMINO TRANSFERASE 34 U/L (10-37); BILIRUBIN,TOTAL 0.4 MG/DL (0.1-1.0); BLOOD UREA NITROGEN 8 MG/DL (7-18); BUN/CREATININE RATIO 11.1 (10.0-20.0); CALCIUM 7.8 MG/DL (8.5-10.1); CHLORIDE 109 MMOL/L (99-107); CREATININE 0.72 MG/DL (0.40-0.90); GLUCOSE 97 MG/DL (70-104); MAGNESIUM 1.7 MG/DL (1.5-2.4); POTASSIUM 3.9 MMOL/L (3.5-5.1); SODIUM 139 MMOL/L (135-145); TOTAL CARBON DIOXIDE 24.2 MMOL/L (24-32); TOTAL PROTEIN 4.4 G/DL (6.4-8.2); eCRCL 34 ML/MIN; eGFR 78 ML/MIN
[2024-04-14 07:00] VITALS: BP 148/68; PULSE 68; RESP 16; TEMP 97.8; O2SAT 98
[2024-04-14 07:45] LABS: BASOPHILS % (AUTO) 0.6 % (0-1); EOSINOPHILS % (AUTO) 0.6 % (0-6); HEMATOCRIT 31.1 % (35.0-45.0); HEMOGLOBIN 10.2 g/dl (12.0-16.0); LYMPHOCYTES # (AUTO) 0.9 X10'3 (1.1-4.8); LYMPHOCYTES % (AUTO) 15.5 % (21-51); MEAN CORPUSCULAR HEMOGLOBIN 33.6 PG (27.0-31.0); MEAN CORPUSCULAR HGB CONC 32.8 g/dL (33.0-36.5); MEAN CORPUSCULAR VOLUME 102.4 FL (78-98); MEAN PLATELET VOLUME 6.6 FL (7.4-10.4); MONOCYTES # (AUTO) 0.5 X10'3 (0-0.9); MONOCYTES % (AUTO) 8.2 % (2-12); NEUTROPHILS # (AUTO) 4.2 X10'3 (1.8-7.7); NEUTROPHILS % (AUTO) 75.1 % (42-75); PLATELET COUNT 246 X10'3 (140-440); RED BLOOD COUNT 3.04 X10'6 (4.20-5.60); RED CELL DISTRIBUTION WIDTH 20.1 % (11.5-14.5); WHITE BLOOD COUNT 5.6 X10'3 (4.5-11.0)
[2024-04-14 13:30] VITALS: RESP 16; O2SAT 98
[2024-04-14 15:05] VITALS: BP 147/57; PULSE 73; RESP 16; TEMP 97.8; O2SAT 98
[2024-04-14] MEDS ORDERED: cyanocobalamin 500mcg tablet PO SCH (15:50)
[2024-04-14 18:00] VITALS: BP 166/60; PULSE 77; RESP 16; TEMP 97.8; O2SAT 98
[2024-04-14] MEDS: lactose-reduced food (Ensure Enlive) - 237ml bottle PO SCH (18:00)
[2024-04-14 20:00] VITALS: RESP 20; O2SAT 99
[2024-04-14] MEDS: cyanocobalamin 500mcg tablet PO SCH (21:55)
[2024-04-14] MEDS: calcium carbonate/vitamin D3 tablet PO SCH (21:56)
[2024-04-15 02:00] VITALS: BP 163/66; PULSE 77; RESP 18; TEMP 97.8; O2SAT 99
[2024-04-15] MEDS: losartan 50mg tablet PO SCH (04:31)
[2024-04-15 06:00] VITALS: BP 140/55; PULSE 77; RESP 12; TEMP 97.5; O2SAT 99
[2024-04-15 06:58] LABS: BASOPHILS # (AUTO) 0.1 X10'3 (0-0.2); BASOPHILS % (AUTO) 1.3 % (0-1); EOSINOPHILS % (AUTO) 0.9 % (0-6); HEMATOCRIT 30.4 % (35.0-45.0); HEMOGLOBIN 10.2 g/dl (12.0-16.0); LYMPHOCYTES # (AUTO) 0.8 X10'3 (1.1-4.8); MEAN CORPUSCULAR HEMOGLOBIN 33.6 PG (27.0-31.0); MEAN CORPUSCULAR HGB CONC 33.5 g/dL (33.0-36.5); MEAN CORPUSCULAR VOLUME 100.2 FL (78-98); MEAN PLATELET VOLUME 6.8 FL (7.4-10.4); MONOCYTES # (AUTO) 0.3 X10'3 (0-0.9); MONOCYTES % (AUTO) 7.8 % (2-12); NEUTROPHILS # (AUTO) 2.9 X10'3 (1.8-7.7); PLATELET COUNT 274 X10'3 (140-440); RED BLOOD COUNT 3.03 X10'6 (4.20-5.60); RED CELL DISTRIBUTION WIDTH 20.4 % (11.5-14.5); WHITE BLOOD COUNT 4.1 X10'3 (4.5-11.0)
[2024-04-15 07:25] LABS: ALANINE AMINOTRANSFERASE 33 U/L (12-78); ALBUMIN 1.6 G/DL (3.4-5.0); ALBUMIN/GLOBULIN RATIO 0.6 (1.1-1.5); ALKALINE PHOSPHATASE 176 IU/L (46-116); ANION GAP 8 (8-16); ASPARTATE AMINO TRANSFERASE 34 U/L (10-37); BILIRUBIN,TOTAL 0.4 MG/DL (0.1-1.0); BLOOD UREA NITROGEN 7 MG/DL (7-18); BUN/CREATININE RATIO 12.7 (10.0-20.0); CHLORIDE 107 MMOL/L (99-107); CREATININE 0.55 MG/DL (0.40-0.90); GLUCOSE 86 MG/DL (70-104); MAGNESIUM 1.7 MG/DL (1.5-2.4); POTASSIUM 3.3 MMOL/L (3.5-5.1); SODIUM 141 MMOL/L (135-145); TOTAL PROTEIN 4.5 G/DL (6.4-8.2); eCRCL 45 ML/MIN; eGFR > 90 ML/MIN
[2024-04-15 08:45] VITALS: RESP 12; O2SAT 99
[2024-04-15] MEDS: amLODIPine 5mg tablet PO SCH (09:45)
[2024-04-15] MEDS: potassium Cl 20 mEq SR tablet PO PRN (09:45)
[2024-04-15 11:00] VITALS: BP 144/60; PULSE 71; RESP 16; TEMP 97.7; O2SAT 95
[2024-04-15] MEDS: piperacillin/tazo 4.5gm/100ml 100 ML IV SCH (14:04)
[2024-04-16] MEDS ORDERED: thiamine 100mg tablet PO SCH (08:00)
[2024-04-16] MEDS ORDERED: folic acid 1mg tablet PO SCH (08:00)
== END 2024-04-15 16:16 | DRG 862 ==
LOC: ER 10:14 → ED HOLD 12:50 → PCU 3S 19:15
PROVIDERS: ADMIT Family Medicine; ATTEND Family Medicine
PROC: BW211ZZ Computerized Tomography (CT Scan) of Abdomen and Pelvis using Low Osmolar Contrast (ICD-10-PCS; principal; 2024-04-12)
DX: T81.49XA Infection following a procedure, other surgical site, initial encounter (principal); E43 Unspecified severe protein-calorie malnutrition; Z68.1 Body mass index [BMI] 19.9 or less, adult; E87.6 Hypokalemia; R62.7 Adult failure to thrive; E88.09 Other disorders of plasma-protein metabolism, not elsewhere classified; S31.103A Unspecified open wound of abdominal wall, right lower quadrant without penetration into peritoneal cavity, initial encounter; X58.XXXA Exposure to other specified factors, initial encounter; E04.1 Nontoxic single thyroid nodule; F10.20 Alcohol dependence, uncomplicated; S40.022A Contusion of left upper arm, initial encounter; W18.39XA Other fall on same level, initial encounter; S40.021A Contusion of right upper arm, initial encounter; D53.9 Nutritional anemia, unspecified; I10 Essential (primary) hypertension; Y83.8 Other surgical procedures as the cause of abnormal reaction of the patient, or of later complication, without mention of misadventure at the time of the procedure; Z88.2 Allergy status to sulfonamides; Z88.1 Allergy status to other antibiotic agents; Z79.01 Long term (current) use of anticoagulants; Z79.899 Other long term (current) drug therapy; Z85.3 Personal history of malignant neoplasm of breast; Y93.89 Activity, other specified; Y92.89 Other specified places as the place of occurrence of the external cause; Y99.8 Other external cause status
CPT/HCPCS: 36415; 70450; 74177; 76536; 76700; 80048; 80053; 80076; 81001; 82948; 83605; 83735; 84145; 84443; 85008; 85025; 87040; 87081; 93005; 93308; 96361; 96365; 96366; 96367; 96375; 97116; 97161; 97530; 99285; A6196; A6213; A6222; A6223; A6446; A6449; G0378; J2470; J2543; J3411; J3480; J3490; J7030; J7040; J7050; Q9967

== ENCOUNTER 2024-08-14 12:49 | Emergency (ER) | payer MEDICARE ==
[~2024-08-14] VITALS: Ht 154.9 cm; Wt 39.1 kg
[~2024-08-14 12:49] MED LIST changes: +LIDO-52 TOP; -LIDO700A32 TOP; +METH-797 PO
[2024-08-14] MEDS ORDERED: FOLI1TAB27 PO (13:05)
--- NOTE | 2024-08-14 13:09 | ELECTROCARDIOGRAPH REPORT ---
[facility], [place] Test Date: 2024-08-14 Test Time: 12:52:27 Pat Name: ARMINDA WEBER Department: EMERGENCY ROOM Room: Gender: F Hematology Supervisor: CARLOS ENRIQUE : 1945 Requested By: JORGE ALBERTO KAPADIA Order Number: [id number] Reading MD: Measurements Intervals [place] Rate: 86 P: 84 IL: 146 QRS: -95 QRSD: 129 T: 24 QT: 423 QTc: 506 Interpretive Statements Sinus rhythm Right atrial enlargement Right bundle branch block Inferior infarct, old Please click the below link to view image of tracing.
--- NOTE | 2024-08-14 13:25 | Physician Documentation ---
History of Present Illness General Chief Complaint: Post-operative complication Stated Complaint: ABD ABCESS Time Seen by MD: 13:05 Primary Medical Doctor: None History of Present Illness Initial Comments The patient is an 79-year-old female who had a duodenal jejunostomy in September of last year requiring several revisions. These were performed by Dr. Ramires. During surgery it was noted that she had an obstructed bile duct. She was eventually transferred to [facility] in February of this year and underwent surgery. She has had percutaneous drainage of bile previously but it became much more pronounced two days ago, according to her daughter. She arrives here today with percutaneous bilious drainage from the right upper quadrant. Medication Reconciliation Allergies: Coded Allergies: Sulfa (Sulfonamide Antibiotics) (Verified Allergy, Unknown, 08/14/24) sulfamethoxazole (Unverified Allergy, Unknown, 08/14/24) trimethoprim (Unverified Allergy, Unknown, 08/14/24) Scheduled Amiodarone Hcl (Cordarone), 200 MG PO BID Cholecalciferol (Vitamin D), 1 TAB PO DAILY, (Reported) Ferrous Sulfate (Ferrous Sulfate), 1 TAB PO DAILY, (Reported) Folic Acid* (Folic Acid*), 1 TAB PO DAILY, (Reported) Losartan Potassium (Losartan Potassium), 1 TAB PO DAILY, (Reported) Metoprolol Succinate (Metoprolol Succinate), 50 MG PO DAILY Pantoprazole Sodium (PROTONIX tablet), 1 TAB PO DAILY, (Reported) Scheduled PRN Melatonin/Pyridoxine HCl (B6) (Melatonin 3 mg Tablet), 1 TAB PO HS PRN for sleep, (Reported) Discontinued Medications Apixaban (Eliquis), 2 TAB PO Q12H Discontinued Reason: patient no longer taking Docusate Sodium (Docusate Sodium), 100 MG PO BID Discontinued Reason: patient no longer taking Lidocaine (Lidoderm), 1 PATCH TOP DAILY Discontinued Reason: patient no longer taking Methocarbamol (Methocarbamol), 1 TAB PO BID, (Reported) Discontinued Reason: patient no longer taking Past Medical History Past Medical History: GI Bleed, Peptic Ulcer Disease Past Surgical History: other Smoking: Non-Smoker Alcohol Use: Alcoholic Drug Use: none Lives In: Home Review of Systems ROS Constitutional: Denies chills, fatigue, fever, weight gain or weight loss. HEENT: Denies hearing loss, sinus pressure or visual changes. Respiratory: Denies cough, shortness of breath or wheezing. Cardiovascular: Denies chest pain, pain while walking (claudication), edema or palpitations. Gastrointestinal: Percutaneous biliary drainage from the right upper quadrant. Genitourinary: Denies painful urination (dysuria), excessive amount of urine (polyuria) or urinary frequency. Metabolic/Endocrine: Denies cold intolerance, heat intolerance, excessive thirst (polydipsia) or excessive hunger (polyphagia). Neurological: Denies dizziness, extremity numbness, extremity weakness, headaches, seizures or tremors. Psychiatric: Denies anxiety or depression. Integumentary: Denies breast discharge, breast lump, hives, mole change(s), rash or skin lesion. Musculoskeletal: Denies back pain, joint pain, joint swelling or neck pain. Hematologic: Denies easily bleeding, easily bruises, lymphedema or issues with blood clots. Immunologic: Denies food allergies or seasonal allergies. Physical Exam Physical Exam Vital Signs: Temperature: 97.4, Source: Oral, Heart Rate: 87, Respiratory Rate: 15, BP: 136/80, Pulse Oximetry: 96, Weight: 39.100 Physical Exam Physical Exam Vitals and nursing note reviewed. Constitutional: General: Patient is awake, alert, oriented x 4 in no acute distress and well appearing. Speech is clear and lucid. Appearance: Patient appears ill. HENT: Head: Normocephalic and atraumatic. Mouth/Throat: Mouth: Mucous membranes are moist. Pharynx: Oropharynx is clear. Eyes: General: No scleral icterus. Extraocular Movements: Extraocular movements intact. Pupils: Pupils are equal, round, and reactive to light. Cardiovascular: Rate and Rhythm: Normal rate and regular rhythm. Heart sounds: No murmur heard. Pulmonary: Effort: No respiratory distress. Breath sounds: No wheezing, rhonchi or rales. Abdominal: General: Percutaneous biliary drainage from the right upper quadrant. Palpations: There is no fluid wave, hepatomegaly or mass. Tenderness: There is no abdominal tenderness. There is no guarding. Musculoskeletal: General: No swelling or deformity. Skin: Coloration: Skin is not jaundiced. Findings: No erythema or rash. Neurological: Mental Status: Patient is alert. Progress Results/Orders Results/Orders Orders - JORGE ALBERTO KAPADIA MD (08/14/24 13:05) Piperacillin/Tazo 4.5gm/100ml (Zosyn 4.5 (08/14/24 13:08) Culture Blood (08/14/24 13:33) Ultrasound Of Abdomen (08/14/24 14:50) Ct Abdomen Pelvis (08/14/24 14:52) Potassium Cl 10meq/100ml Bag (Potassium (08/14/24 15:30) Potassium Cl 20meq/15ml Oral (Potassium (08/15/24 08:00) Completed Orders - JORGE ALBERTO KAPADIA MD Type And Screen (08/14/24 13:05) Cbc/Diff (08/14/24 13:05) CMP (08/14/24 13:05) Lipase (08/14/24 13:05) PTT (08/14/24 13:05) Pt Inr (08/14/24 13:05) MG (08/14/24 13:05) Hs Troponin I W Calculations (08/14/24 13:05) Electrocardiogram (08/14/24 ) Ultrasound Of Abdomen (08/14/24 14:50) Ct Abdomen Pelvis (08/14/24 14:52) Iohexol 300mg/Ml 100ml Inj. (Omnipaque-3 (08/14/24 15:02) Medications Received in ER Medications (Trade) Dose Ordered Sig/[place]ma Route PRN Reason Start Time Stop Time Status Last Admin Dose Admin Piperacillin/ Tazobactam/ Dextrose 100 ml @ 25 mls/hr ONCE ONCE IV 08/14/24 13:08 08/14/24 17:07 08/14/24 14:28 25 MLS/HR Vital Signs 08/14/24 12:52 Temp 97.4 Pulse 87 Resp 15 B/P (MAP) 136/80 Pulse Ox 96 Laboratory Tests Test 08/14/24 13:47 08/14/24 14:01 Prothrombin Time 10.2 INR International Normalized Ratio 1.0 Activated Partial Thromboplast Time 23 Coagulation Comments Sodium Level 141 Potassium Level 2.8 *L Chloride Level 100 Carbon Dioxide Level 31.1 Anion Gap 10 Blood Urea Nitrogen 21 H Creatinine 0.67 Estimated GFR/1.73 m2 85 BUN/Creatinine Ratio 31.3 H Glucose Level 111 H Calcium Level 10.3 H Magnesium Level 2.0 Total Bilirubin 1.6 H Aspartate Amino Transf (AST/SGOT) 16 Alanine Aminotransferase (ALT/SGPT) 14 Alkaline Phosphatase 131 H Troponin I High Sensitivity 21 Total Protein 6.7 Albumin 2.5 L Globulin 4.2 Albumin/Globulin Ratio 0.6 L Lipase 18 Chemistry Comments White Blood Count 9.5 Red Blood Count 3.14 L Hemoglobin 10.6 L Hematocrit 31.3 L Mean Corpuscular Volume 99.6 H Mean Corpuscular Hemoglobin 33.9 H Mean Corpuscular Hemoglobin Concent 34.0 Red Cell Distribution Width 13.1 Platelet Count 217 Mean Platelet Volume 7.1 L Neutrophils (%) (Auto) 90.3 H Lymphocytes (%) (Auto) 4.3 L Monocytes (%) (Auto) 5.2 Eosinophils (%) (Auto) 0 Basophils (%) (Auto) 0.2 Neutrophils # (Auto) 8.6 H Lymphocytes # (Auto) 0.4 L Monocytes # (Auto) 0.5 Eosinophils # (Auto) 0.0 Basophils # (Auto) 0.0 CBC Comment Medical Decision Making Findings This 79-year-old female with multiple abdominal surgeries and a surgery at [facility] in February of this year for an obstructed bile duct is currently draining bile percutaneously. EKG medically necessary in the evaluation of surgical complication and i nterpreted by me at the time of patient evaluation. Rhythm is sinus rhythm with a rate of 86, right atrial enlargement, right bundle branch block. Impression: Abnormal EKG. I spoke with our surgeon on-call, Dr. Murphy, who recommended transfer to a higher level of care. 3:08 p.m.: [facility] in [place] indicated that there IR team would not be available until Friday and the patient would have to be transferred inpatient to inpatient. I am going to get her admitted here. 3:13 p.m.: I spoke with Dr. Sharpe, who declined admitting this patient because the surgeon recommended transfer. 1547: I spoke with the transfer center for [place] and they informed me that the patient has simply had a T-tube removed and this represents a chronic leak. They are going to present the case to their hepatobiliary surgeon and get back to me. Sixteen 18: I spoke with Dr. Cadena, hepatobiliary surgeon at [facility], who reviewed the patient's chart and informed me that she had had a cholecystotomy done and subsequent removal of the drainage tube which has continued to leak intermittently. His partner, Dr. Hammonds saw the patient when she was admitted to their hospital. Currently, the patient does not have a fever, elevated white count or other evidence of sepsis. He recommended placing an ostomy bag over the leaking site. The daughter will phone [phone] on Friday to make an appointment with Dr. Hammonds. In the meantime, if the patient develops fever or other evidence of sepsis the daughter will bring the patient back here for transfer. Departure Disposition: 01 HOME / SELF CARE / HOMELESS Impression: Primary Impression: Biliary anastomotic leak at site of T tube insertion Condition: Stable Additional Instructions: You may drain the ostomy bag, as needed. On Friday, please phone and make an appointment to see Dr. Hammonds, hepatobiliary surgeon who saw you when you were admitted to [facility]. Do not hesitate to return here for transfer if you develop fever, purulent drainage from the site or other new/unusual symptoms. Referrals: NO PRIMARY CARE PROVIDER (PCP) Signature Scribe Signature: . Attestation: . JORGE ALBERTO KAPADIA MD Aug 14, 2024 13:25
[2024-08-14 14:11] LABS: MEAN PLATELET VOLUME 7.1 FL (7.4-10.4); RED CELL DISTRIBUTION WIDTH 13.1 % (11.5-14.5)
[2024-08-14] MEDS: piperacillin/tazo 4.5gm/100ml 100 ML IV ONE (14:28)
[2024-08-14 14:52] LABS: APTT 23 SECONDS (22-32); INR 1.0 INR
[2024-08-14 14:57] LABS: CREATININE 0.67 MG/DL (0.40-0.90); TOTAL CARBON DIOXIDE 31.1 MMOL/L (24-32); eCRCL 41 ML/MIN; eGFR 85 ML/MIN
[2024-08-14] MEDS ORDERED: iohexol 300mg/ml 100ml inj. ONE (15:02)
--- NOTE | 2024-08-14 16:10 | RADIOLOGY REPORT ---
CLINICAL INFORMATION: Percutaneous drainage of bile. TECHNIQUE: Axial CT images of the abdomen and pelvis were obtained after the uneventful administratio n of 100 mL Omnipaque 300 IV contrast. Coronal and sagittal reformatted images were obtained, reviewe d, and stored. All CT scans at this medical facility are performed using dose modulation techniques a s appropriate to a performed exam including the following: Automated exposure control was utilized; a djustment of the MA and/or KV according to patient size; and use of iterative reconstruction techniqu e. CTDIvol = 4.09 mGy DLP = 169.03 mGy-cm COMPARISON: CT CT ABDOMEN PELVIS W/ IV CONTRAST on DOS: 04/12/24, CT CT ABDOMEN PELVIS on DOS: 11/05/23, CT CT ABDOMEN PELVIS on DOS: 10/15/23 FINDINGS: There is motion artifact limiting evaluation for subtle findings. Lung bases: Lung bases are clear. Liver: Hepatic steatosis. Stable cyst in the left hepatic lobe. Biliary: Focal defect of the gallbladder fundus, with adjacent fluid collection measuring up to 1.1 x 3.3 x 2.9 cm, with some fluid and gas extending into a defect in the overlying right ventral abdomin al wall extending to the skin surface consistent with reported clinical history. There is pneumobilia .Spleen: Unremarkable. Pancreas: Grossly unremarkable. Adrenal glands: Unremarkable. No mass. Kidneys: No hydronephrosis. Small exophytic cyst at the lower pole of the left kidney. Aorta/Vascular: Moderate atherosclerotic calcification. No abdominal aortic aneurysm. Retroperitoneum: No mass or lymphadenopathy. Bowel/mesentery: Nonspecific mildly distended fluid-filled small bowel loops. No transition point to suggest small bowel obstruction. There is suture material adjacent to some small bowel loops from pr ior surgical anastomosis. Appendix is not visualized. Scattered small colonic diverticula. No definit e adjacent inflammatory changes to suggest diverticulitis. Pelvic organs: Grossly unremarkable. Bladder: Mildly to moderately distended bladder. Abdominal wall: Focal defect in the right ventral abdominal wall with associated subcutaneous edema, likely due to inflammation and possible cellulitis. Fluid collection deep to the soft tissue defect/ wound appears to communicate with the gallbladder as described above. Bones: No acute fracture or focal intraosseous lesion. IMPRESSION: 1. Focal defect at the gallbladder fundus with adjacent fluid collection, likely biliary collection w ith fluid and gas extending into a defect in the overlying right ventral abdominal wall and extending to the skin surface. 2. Pneumobilia. 3. Hepatic steatosis. 4. Nonspecific nondilated fluid-filled small bowel loops. Findings may be seen with ileus or enteriti s in the appropriate clinical setting. No small bowel obstruction. 5. Scattered colonic diverticula without adjacent inflammatory changes to suggest diverticulitis. 6. Additional findings as described above.
[2024-08-14] MEDS ORDERED: POTA-192 PO (16:26)
[2024-08-14] MEDS: potassium CL 10mEq/100ml bag 100 ML IV SCH (16:34)
--- NOTE | 2024-08-14 16:39 | RADIOLOGY REPORT ---
CLINICAL INFORMATION: 79 years old, Female; Percutaneous bilious drainage. TECHNIQUE: Grayscale sonographic imaging of the right upper quadrant of the abdomen was performed, a ssisted by color Doppler techniques. COMPARISON: US ULTRASOUND OF ABDOMEN on DOS: 04/12/24. CT dated 08/14/2024. FINDINGS: The gallbladder wall measures 6.8 mm in thickness, abnormally thickened. No gallstones a re seen. Negative reported sonographic boland's sign. Small fluid collection anterior to the gallblad wilfred. The common bile duct measures 3.9 mm in diameter, within normal limits. Liver is within normal limits in size. Cyst in the left hepatic lobe measures up to 2.2 cm. The pancreas is obscured by bowel gas. The right kidney measures 10.0 cm. There is no hydronephrosis. Right renal cortical echogenicity a nd cortical thickness are within normal limits. IMPRESSION: 1. Abnormally thickened gallbladder wall. No gallstones visualized. 2. Fluid collection anterior to the gallbladder, appears to be a biliary collection when correlated w ith CT. Refer to the separately dictated same day CT abdomen/ pelvis report for additional findings. 3. No biliary ductal dilatation. 4. Hepatic cyst.
[2024-08-14] MEDS: POTASSIUM CHLORIDE 20 MEQ/15 ML oral solution PO SCH (19:31)
[2024-08-14 20:11] VITALS: BP 160/85; PULSE 91; RESP 16; TEMP 98.2; O2SAT 99
[2024-08-15] MEDS ORDERED: POTASSIUM CHLORIDE 20 MEQ/15 ML oral solution PO SCH ×2 (08:00)
== END 2024-08-14 20:43 | disposition home or self-care (01) ==
LOC: ER 12:50
DX: K83.1 Obstruction of bile duct (principal); Z88.1 Allergy status to other antibiotic agents; Z88.2 Allergy status to sulfonamides; Z79.899 Other long term (current) drug therapy
CPT/HCPCS: 36415; 74177; 76700; 80053; 83690; 83735; 84484; 85025; 85610; 85730; 86885; 86900; 86901; 93005; 96361; 96365; 96366; 99285; A4371; A4421; J2543; J3480; J7050; Q9967